=== PATIENT | female | born 1955 | race Caucasian/White ===

== ENCOUNTER → 2019-07-09 13:17 | Outpatient (CLI) | payer MEDICARE, OTHER, SELFPAY ==
--- NOTE | ~2019-07-09 | MM_ITS ---
EXAMINATION: MM screening walker BI w melina HISTORY: Screening mammogram, family history of breast cancer in her mother. TECHNIQUE: Craniocaudal and mediolateral oblique 3-D tomosynthesis images were obtained and synthetic 2-D images were generated. CAD analysis was submitted and interpreted. COMPARISON: 04/25/2018, 03/30/2017, 02/09/2016 BREAST PARENCHYMAL COMPOSITION: There are scattered areas of fibroglandular density. FINDINGS: There is stable architectural distortion in the left breast at the site of prior excisional biopsy. There is no evidence of suspicious mass, calcification, or architectural distortion to sugge st malignancy in either breast. There has been no suspicious interval change. IMPRESSION: 1. No mammographic evidence of malignancy. 2. Recommend routine screening mammography in one year. BI-RADS Category 2: Benign finding(s). Reviewed, dictated and finalized at location A. 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
== END ==
PROVIDERS: PCP Internal Medicine; Visit Provider Internal Medicine
DX: Z12.31 Encounter for screening mammogram for malignant neoplasm of breast (principal)
CPT/HCPCS: 77063; 77067

== ENCOUNTER 2019-12-02 01:02 | Outpatient (CLI) | payer MEDICARE, OTHER, SELFPAY ==
[2019-12-02 18:41] LABS: SARS-CoV-2 RNA PCR Negative
== END 2019-12-02 01:03 | disposition home or self-care (01) ==
LOC: ANHCOVIDDT 01:03
PROVIDERS: PCP Internal Medicine; Visit Provider Internal Medicine Gastroenterology
DX: Z01.812 Encounter for preprocedural laboratory examination (principal); Z11.59 Encounter for screening for other viral diseases
CPT/HCPCS: 87635; C9803; U0003

== ENCOUNTER 2019-12-04 01:51 | Day surgery (SDC) | payer MEDICARE, OTHER, SELFPAY ==
[2019-11-28 10:16] VITALS: BMI 22.4
[2019-12-04 08:46] VITALS: BP 128/70; PULSE 90; RESP 16; TEMP 36.8; O2SAT 100; BMI 21.2
--- NOTE | 2019-12-04 08:52 | P.CONGI_ITS ---
Assessment and Plan Assessment and plan (1) History of colon polyps: Code(s): Z86.010 - Personal history of colonic polyps Status: Acute Assessment and Plan: Patient has had colon polyps identified in the past. She presents today for surveillance colonoscopy. It is advised that she have colonoscopy at least every 5 years in the future. (2) Family history of colonic polyps: Code(s): Z83.71 - Family history of colonic polyps Status: Acute GI Consult Note Consult date/time: 12/04/19 08:52 HPI: Michaela Celestin is a 64 year old female seen in evaluation at the request of Dr Bubba De La Rosa. Patient presents for screening colonoscopy. She states that she has previously had colon polyps on previous examinations. Most recent exam was in 2014. She has had 3 prior colonoscopies with colon polyps identified at each of those visits. Most recent exam was in [facility]. Patient's family history is significant that mother and brother both have also had colon polyps. Patient currently denies any abdominal complaints. She denies abdominal pain. She has no blood in her stools. Past medical history is significant for hypothyroidism for which she is on thyroid replacement. Review of Systems Review of Systems: All systems reviewed & are unremarkable except as noted in HPI and below Meds Home Medications and Allergies Home Medications Medication Instructions Recorded Confirmed Type levothyroxine 50 mcg PO DAILY 11/28/19 12/04/19 History Allergies Allergy/AdvReac Type Severity Reaction Status Date / Time cephalexin [From Keflex] Allergy Rash Verified 12/04/19 08:45 Vital Signs Vital Signs - 24 hr 12/04/19 08:46 Temperature 98.2 F Pulse Rate 90 Respiratory Rate 16 Blood Pressure 128/70 Pulse Oximetry 100 Exam Narrative: Exam Narrative: Physical exam reveals patient to be alert. Vital signs stable. HEENT exam unremarkable. Lungs are clear to auscultation and percussion. Heart is without murmur or extra sounds. Abdominal exam bowel sounds are present soft nontender with no hepatosplenomegaly. Digital external rectal exam is normal.
[2019-12-04] MEDS: LACTATED RINGERS 1,000 ML 150 ML IV CONT (08:58)
--- NOTE | 2019-12-04 09:15 | WPDANESEPPF ---
Anes - Initial Pre Proc Eval Procedure: Operation Date: 12/04/19 09:30 Proposed Procedures p Screening Colonoscopy - Bay Grimes MD Date/Time: 12/04/19 09:15 Surgeon: Bay Grimes MD Pre Op Diagnosis: History of Colon Polyps Patient Data Age: 64 Gender: F Height: 5 ft 6 in Weight: 59.8 kg Last Vital Signs Temp 98.2 F 12/04/19 08:46 Pulse 90 12/04/19 08:46 Resp 16 12/04/19 08:46 BP 128/70 12/04/19 08:46 Pulse Ox 100 12/04/19 08:46 Allergies Allergy/AdvReac Type Severity Reaction Status Date / Time cephalexin [From Keflex] Allergy Rash Verified 12/04/19 08:45 Home Medications Medication Instructions Recorded Confirmed Type levothyroxine 50 mcg PO DAILY 11/28/19 12/04/19 History Patient hx anesthesia problems: none Family hx anesthesia problems: none [facility], [facility] Past Medical History Medical History (Updated 12/04/19 @ 09:12 by Robert Flores MD) Hypothyroid Anes - Eval Final PreProcedure Day of Procedure 12/04/19 09:15 Patient weight: normal Heart: regular rate and rhythm Lungs: clear to auscultation Airway: Mallampati scale class II Neurological: alert and oriented Last oral intake: >/= 8 hours ASA classification: II Emergent: no Anesthetic plan: proceed Anesthesia type and monitoring: general GIVS and standard monitoring Informed Consent: The patient's anesthetic plan and its attendant risks and benefits were discussed with the patient/family/POA. Questions were solicited and answers provided to the satisfaction of the patient/family/POA.
[2019-12-04 09:50] VITALS: BP 132/78; PULSE 93; RESP 16; O2SAT 100
[2019-12-04 10:00] VITALS: BP 139/92; PULSE 85; RESP 16; O2SAT 100
[2019-12-04 10:10] VITALS: BP 142/89; PULSE 83; RESP 14; O2SAT 100
== END 2019-12-04 10:30 | disposition home or self-care (01) ==
PROVIDERS: PCP Internal Medicine; Visit Provider Internal Medicine Gastroenterology
PROC: 0DJD8ZZ Inspection of Lower Intestinal Tract, Via Natural or Artificial Opening Endoscopic (ICD-10-PCS; CPT 45378; principal; 2019-12-04 09:30)
DX: Z12.11 Encounter for screening for malignant neoplasm of colon (principal); K64.8 Other hemorrhoids; Z86.010 Personal history of colon polyps; Z83.71 Family history of colonic polyps; E03.9 Hypothyroidism, unspecified
CPT/HCPCS: G0105; J2704; J7120

== ENCOUNTER → 2020-07-13 10:59 | Outpatient (CLI) | payer MEDICARE, SELFPAY ==
--- NOTE | ~2020-07-13 | MM_ITS ---
EXAMINATION: MM screening walker BI w melina HISTORY: Screening mammogram, family history of breast cancer in her mother. TECHNIQUE: Craniocaudal and mediolateral oblique 3-D tomosynthesis images were obtained and synthetic 2-D images were generated. CAD analysis was submitted and interpreted. COMPARISON: 05/08/2020, 04/25/2018, 03/30/2017 BREAST PARENCHYMAL COMPOSITION: There are scattered areas of fibroglandular density. FINDINGS: There is no evidence of suspicious mass, calcification, or architectural distortion to sugg est malignancy in either breast. There has been no suspicious interval change. IMPRESSION: 1. No mammographic evidence of malignancy. 2. Recommend routine screening mammography in one year. BI-RADS Category 1: Negative Reviewed, dictated and finalized at location A. 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
== END ==
PROVIDERS: PCP Internal Medicine; Visit Provider Internal Medicine
DX: Z12.31 Encounter for screening mammogram for malignant neoplasm of breast (principal)
CPT/HCPCS: 77063; 77067

== ENCOUNTER → 2020-07-13 11:02 | Outpatient (CLI) | payer MEDICARE, SELFPAY ==
--- NOTE | ~2020-07-13 | DEXA_ITS ---
Bone Density Report Name: Michaela Celestin Age: 65 Sex: Female Ethnicity: White Date of : 1955 Indication: osteopenia; postmenopausal Referring Provider: Ralf, Vernell Baxter Study: Bone densitometry was performed. Exam Date: July 13, 2020 Accession number: [id number] Bone Density: Region BMD T-score Z-score Classification AP Spine (L1-L4) 0.815 -2.1 -0.3 Osteopenia Femoral Neck (Left) 0.648 -1.8 -0.2 Osteopenia Total Hip (Left) 0.780 -1.3 0.0 Osteopenia Femoral Neck (Right) 0.683 -1.5 0.1 Osteopenia Total Hip (Right) 0.861 -0.7 0.6 Normal Total Hip Mean 0.821 -1.0 0.3 Normal World Health Organization criteria for BMD impression classify patients as: Normal (T-score at or above -1.0), Osteopenia (T-score between -1.0 and -2.5), or Osteoporosis (T-score at or below -2.5). 10-year Fracture Risk(1): Major Osteoporotic Fracture 9.7% Hip Fracture 1.4% Reported Risk Factors: [place] (), Neck BMD=0.648, BMI=22.9 (1) FRAX(R) Version 3.08. Fracture probability calculated for an untreated patient. Fracture probability may be lower if the patient has received treatment. Previous Exams: Region Exam Age BMD T-score BMD Change BMD Change Date g/cm2 vs Baseline vs Previous AP Spine(L1-L4) 07/13/2020 65 0.815 -2.1 -0.029* -0.029* 04/25/2018 62 0.843 -1.9 Total Hip(Left) 07/13/2020 65 0.780 -1.3 -0.012 -0.012 04/25/2018 62 0.793 -1.2 Total Hip(Right) 07/13/2020 65 0.861 -0.7 0.008 0.008 04/25/2018 62 0.852 -0.7 *Denotes significance at 95% confidence level, LSC for AP Spine = 0.022 g/cm2, LSC for Total Hip = 0.027 g/cm2 Clinical Information Provided by Patient: Has used the following medications: Vitamin D Patient maximum height was 66 Menopause Age: 53 No regular weight bearing exercise Drinks caffeinated beverages Onset of menses at age 11 Number of children 2 Impression: The patient has low bone mass, based on the Total Spine T-score. The patient has an estimated ten-year risk of hip fracture of 1.4% and an estimated ten-year risk of major fracture of 9.7%, based on the WHO FRAX algorithm. The BMD for the AP Spine(L1-L4) decreased, changing by -0.029 since the last DXA exam. Discussion: BONE DENSITY IS LOW AT ONE OR MORE SKELETAL SITES. This patient's lowest T-score is low at one or more skeletal sites. It meets the World Health Organization's (
== END ==
PROVIDERS: PCP Internal Medicine; Visit Provider Nurse Practitioner Obstetrics & Gynecology
DX: Z78.0 Asymptomatic menopausal state (principal); M85.88 Other specified disorders of bone density and structure, other site; M85.852 Other specified disorders of bone density and structure, left thigh; M85.851 Other specified disorders of bone density and structure, right thigh
CPT/HCPCS: 77080

== ENCOUNTER → 2021-09-06 12:33 | Outpatient (CLI) | payer MEDICARE, SELFPAY ==
--- NOTE | ~2021-09-06 | MM_ITS ---
EXAMINATION: MM screening walker BI w melina HISTORY: Screening mammogram TECHNIQUE: Craniocaudal and mediolateral oblique 3-D tomosynthesis images were obtained and synthetic 2-D images were generated. CAD analysis was submitted and interpreted. COMPARISON: July 13, 2020, July 09, 2019, April 25, 2018 bilateral screening mammogram exam inations BREAST PARENCHYMAL COMPOSITION: There are scattered areas of fibroglandular density. FINDINGS: There is no evidence of suspicious mass, calcification, or architectural distortion to sugg est malignancy in either breast. There has been no suspicious interval change. IMPRESSION: 1. No mammographic evidence of malignancy. 2. Recommend routine screening mammography in one year. BI-RADS Category 1: Negative Reviewed, dictated and finalized at location A.
== END ==
PROVIDERS: PCP Internal Medicine; Visit Provider Internal Medicine
DX: Z12.31 Encounter for screening mammogram for malignant neoplasm of breast (principal)
CPT/HCPCS: 77063; 77067

== ENCOUNTER → 2022-03-16 08:43 | Outpatient (CLI) | payer MEDICARE, SELFPAY ==
--- NOTE | ~2022-03-16 | MMUS_ITS ---
EXAMINATION: MM diagnostic walker LT w melina, US breast LT complete HISTORY: Diffuse left breast pain TECHNIQUE: Craniocaudal, mediolateral, and mediolateral oblique 3-D tomosynthesis images of the left breast were performed and synthetic 2-D images were generated. CAD analysis was submitted and interpr eted. High resolution limited left breast ultrasound was performed. COMPARISON: 09/06/2021, 07/13/2020, 07/09/2019 BREAST PARENCHYMAL COMPOSITION: There are scattered areas of fibroglandular density. FINDINGS: MAMMOGRAPHIC FINDINGS: No suspicious mass, calcification, or architectural distortion are identified to suggest malignancy. There has been no suspicious interval change. No mammographic correlate is identified for the patient 's reported left breast pain. ULTRASOUND: There is no evidence of focal abnormal solid or cystic mass in the vicinity of the patient's left gabi ast pain. IMPRESSION: 1. No specific mammographic or sonographic correlate is identified for the patient's left breast pain Further evaluation at this time should be based on clinical assessment. Continued follow-up physical examination is recommended. 2. Routine screening mammography is recommended. BI-RADS Category 1: Negative Reviewed, dictated and finalized at location A. IMPRESSION: 1. No specific mammographic or sonographic correlate is identified for the rosalia ent's left breast pain Further evaluation at this time should be based on clini carmella assessment. Continued follow-up physical examination is recommended. 2. Routine screening mammography is recommended. BI-RADS Category 1: Negative
== END ==
PROVIDERS: PCP Internal Medicine; Visit Provider Nurse Practitioner Obstetrics & Gynecology
DX: N64.4 Mastodynia (principal)
CPT/HCPCS: 76641; 77061; 77065; G0279

== ENCOUNTER → 2022-09-22 12:14 | Outpatient (CLI) | payer MEDICARE, SELFPAY ==
--- NOTE | ~2022-09-22 | MM_ITS ---
EXAMINATION: MM screening walker BI w melina HISTORY: Screening mammogram, family history of breast cancer in her mother. TECHNIQUE: Craniocaudal and mediolateral oblique 3-D tomosynthesis images were obtained and synthetic 2-D images were generated. CAD analysis was submitted and interpreted. COMPARISON: 03/16/2022, 09/06/2021, 07/13/2020, 07/09/2019 BREAST PARENCHYMAL COMPOSITION: There are scattered areas of fibroglandular density. FINDINGS: RIGHT BREAST: An asymmetry is present in the middle third of the central breast in line with the nipp le axis on the craniocaudal view. LEFT BREAST: No suspicious mass, calcification, or architectural distortion are identified to suggest malignancy. There has been no suspicious interval change. IMPRESSION: 1. Right breast asymmetry. 2. Additional mammographic views and possible breast ultrasound are recommended. BI-RADS Category 0: Incomplete: Needs additional imaging evaluation. Reviewed, dictated and finalized at location A. IMPRESSION: 1. Right breast asymmetry. 2. Additional mammographic views and possible breast ultrasound are recommended . BI-RADS Category 0: Incomplete: Needs additional imaging evaluation.
== END ==
PROVIDERS: PCP Internal Medicine; Visit Provider Nurse Practitioner Obstetrics & Gynecology
DX: Z12.31 Encounter for screening mammogram for malignant neoplasm of breast (principal); R92.8 Other abnormal and inconclusive findings on diagnostic imaging of breast
CPT/HCPCS: 77063; 77067

== ENCOUNTER → 2022-10-21 08:42 | Outpatient (CLI) | payer MEDICARE, SELFPAY ==
--- NOTE | ~2022-10-21 | MM_ITS ---
EXAMINATION: MM diagnostic walker RT w melina HISTORY: Right mammographic asymmetry on 09/2022 screening mammogram TECHNIQUE: Additional 3-D tomosynthesis images of the right breast were performed and synthetic 2-D i mages were generated. Rolled medial and lateral craniocaudal views. CAD analysis was submitted and in terpreted. COMPARISON: 09/22/2022, 09/06/2021, 07/13/2020 bilateral screening mammogram examinations FINDINGS: No suspicious mass or architectural distortion, malignant calcification, skin thickening or retraction is evident. The asymmetry reported on 09/22/2022 is not confirmed on coned compression CC T omosynthesis images or the rolled medial and rolled lateral craniocaudal views, consistent with compo site shadowing of overlapping fibroglandular stroma. IMPRESSION: 1. No mammographic evidence of malignancy 2. Routine annual mammographic screening is recommended BI-RADS Category 1: Negative Reviewed, dictated and finalized at location A.
== END ==
PROVIDERS: PCP Internal Medicine; Visit Provider Nurse Practitioner Obstetrics & Gynecology
DX: R92.8 Other abnormal and inconclusive findings on diagnostic imaging of breast (principal)
CPT/HCPCS: 77061; 77065; G0279

== ENCOUNTER 2023-12-07 10:13 | Outpatient (CLI) | payer MEDICARE, SELFPAY ==
--- NOTE | ~2023-12-07 | MM_ITS ---
EXAMINATION: MM screening walker BI w melina HISTORY: Screening TECHNIQUE: Craniocaudal and mediolateral oblique 3-D tomosynthesis images were obtained and synthetic 2-D images were generated. CAD analysis was submitted and interpreted. COMPARISON: Comparison to multiple prior studies sequentially, with oldest reviewed study dated 07/09. BREAST PARENCHYMAL COMPOSITION: Not dense: There are scattered areas of fibroglandular density. FINDINGS: There is no evidence of suspicious mass, calcification, or architectural distortion to sugg est malignancy in either breast. There has been no suspicious interval change. IMPRESSION: 1. No mammographic evidence of malignancy. 2. Recommend routine screening mammography in one year. BI-RADS Category 1: Negative Reviewed, dictated and finalized at location B.
== END 2023-12-07 10:14 ==
PROVIDERS: PCP Internal Medicine; Visit Provider Obstetrics & Gynecology
DX: Z12.31 Encounter for screening mammogram for malignant neoplasm of breast (principal)
CPT/HCPCS: 77063; 77067

== ENCOUNTER 2023-12-19 07:26 | Outpatient (CLI) | payer MEDICARE, SELFPAY ==
[2023-12-19 07:57] LABS: Basophils Percent Auto 1.1 % (0.2-1.2); Eosinophils Absolute Auto 0.1 K/mm3 (0-0.3); Eosinophils Percent Auto 2.3 % (0-4.4); Hematocrit 47.6 % (37.0-47.0); Hemoglobin 15.4 g/dL (12.0-15.0); Immature Granulocyte Absolute 0.01 K/mm3 (0.00-0.031); Immature Granulocyte Percent A 0.3 % (0-0.5); Lymphocytes Absolute Auto 1.11 K/mm3 (0.9-3.2); Lymphocytes Percent Auto 31.7 % (18.3-44.2); Mean Corpuscular HGB Conc 32.4 g/dl (32-36); Mean Corpuscular Hemoglobin 29.8 pg (26-34); Mean Corpuscular Volume 92.1 fl (80-100); Mean Platelet Volume 10.4 fl (7.4-10.4); Monocytes Absolute Auto 0.5 K/mm3 (0.1-0.6); Monocytes Percent Auto 14.6 % (2.6-8.5); Neutrophils Absolute Auto 1.8 K/mm3 (1.3-6.7); Platelet Count Result 187 k/mm3 (150-375); Red Blood Count 5.17 M/mm3 (4.2-5.4); White Blood Count 3.5 K/mm3 (4.5-10.0)
[2023-12-19 08:12] LABS: Alanine Aminotransferase 28 U/L (6-35); Albumin Level 4.4 g/dL (3.5-5.1); Alkaline Phosphatase 100 U/L (38-126); Anion Gap 8 mmol/L (4-12); Aspartate Amino Transferase 36 U/L (14-36); Bilirubin,Total 0.5 mg/dL (0.2-1.3); Blood Urea Nitrogen 22 mg/dL (7-17); Calcium 8.9 mg/dL (8.4-10.2); Carbon Dioxide 31 mmol/L (22-30); Chloride 101 mmol/L (98-107); Cholesterol 174 mg/dL (0-200); Estimated Glomerular Filt Rate > 60; Glucose 91 mg/dL (65-110); HDL Direct 72 mg/dL; Potassium 4.6 mmol/L (3.4-5.0); Sodium 140 mmol/L (137-145); Triglycerides 73 mg/dL (<150)
[2023-12-19 08:23] LABS: LDL Cholesterol Direct 77 mg/dL
[2023-12-19 08:41] LABS: Free T4 Free Thyroxine 0.73 ng/mL (0.78-2.19)
[2023-12-20 12:07] LABS: Triiodothyronine T3 Free 3.2 pg/mL (2.3-4.2)
== END 2023-12-19 07:27 | disposition home or self-care (01) ==
LOC: ANHLAB 07:29
PROVIDERS: PCP Internal Medicine; Visit Provider Internal Medicine
DX: E78.5 Hyperlipidemia, unspecified (principal); E03.9 Hypothyroidism, unspecified; Z79.899 Other long term (current) drug therapy
CPT/HCPCS: 36415; 80053; 80061; 84439; 84443; 84481; 85025

== ENCOUNTER 2024-02-02 13:15 | Outpatient (RCR) | payer MEDICARE, SELFPAY ==
--- NOTE | 2024-01-12 16:33 | OPREHPOC ---
Outpatient Therapy Plan of Care This is a Multidisciplinary Plan of Care that may contain components documented by all disciplines (PT, OT, and ST.) PT Problem 1 PT Problem #1 Knowledge Deficit PT Goal 1 Goal / Goal Update [place] with HEP Target Visit 4 PT Problem 2 PT Problem #2 Impaired Range of Motion PT Goal 1 Goal / Goal Update Demonstrate 45 degrees pradeep hip abduction to reduce hip limitation motion Target Visit 6 PT Goal 2 Goal / Goal Update Improve pradeep hip abduction strength to 4+/5 to improve lateral stability with gait and ADLs Target Visit 6 PT Problem 3 PT Problem #3 Pain PT Goal 1 Goal / Goal Update Patient will demonstrate no palpable tenderness to R patellar bursa Target Visit 6
--- NOTE | 2024-01-12 16:34 | PTOPEVAL1 ---
Assessment and note entered by Dwayne Roberts, PT Evaluation Information Assessment Status Evaluation Diagnosis Right Trochanteric bursitis ICD-10 Condition Codes (PT) M25.561 Onset November 2023 Subjective Information Reports that she has had a long history of trochanteric bursitis for years., her knee has been bothering her for a little over a month. No known injury. Denies radiating pain or back pain at this time. Denies falls. She does silver sneakers with dance and really wants to get back to that. For exercise she is mostly just walking at this time. Ice seems to help with pain. Reported Pain Level Pain Score 1: Self Report Assessment PT Clinical Summary Patient presents with signs and symptom consistent with R patellar and R trochanteric bursitis. She is showing some hip mobility on adduction issues and weal lateral stabilizers. Will benefit from skilled therapy to address hip weakness and hip disassociation for correction strengthening. Plan of Care Interventions Electrical Stimulation,Gait Training,Manual Therapy,Neuro Re-education,Therapeutic Activities, Therapeutic Exercise PT Services Indicated Yes Treatment Frequency and 1-2x/week for 6 visits Duration These treatments will address the objective and functional deficits as defined above. The patient will be advanced safely and appropriately in order for the patient to progress towards his/her prior level of function. Additional exercises will be introduced and as well as a comprehensive home exercise program upon discharge, if needed, ?to ensure carryover of functional gains achieved in the clinic. This treatment plan has been reviewed and agreement upon by the patient.
--- NOTE | 2024-02-02 13:59 | OPREHPOC ---
Outpatient Therapy Plan of Care This is a Multidisciplinary Plan of Care that may contain components documented by all disciplines (PT, OT, and ST.) PT Problem 1 PT Problem #1 Knowledge Deficit PT Goal 1 Goal / Goal Update [place] with HEP Target Visit 4 Progress Met PT Problem 2 PT Problem #2 Impaired Range of Motion PT Goal 1 Goal / Goal Update Demonstrate 45 degrees pradeep hip abduction to reduce hip limitation motion Target Visit 6 Progress Met PT Goal 2 Goal / Goal Update Improve pradeep hip abduction strength to 4+/5 to improve lateral stability with gait and ADLs Target Visit 6 PT Problem 3 PT Problem #3 Pain PT Goal 1 Goal / Goal Update Patient will demonstrate no palpable tenderness to R patellar bursa Target Visit 6 Progress Met
--- NOTE | 2024-02-02 13:59 | PTOPDC ---
Assessment and note entered by Dwayne Roberts, PT Evaluation Information Assessment Status Discharge Diagnosis Right Trochanteric bursitis ICD-10 Condition Codes (PT) M25.561 Onset November 2023 Subjective Information Reports that she feels like she has made great progress. 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 Reported Pain Level Pain Score 0,0: Self Report Assessment PT Clinical Summary Patient met all goals for therapy at this time and is suitable for discharge. Reviewed HEPO and objective deficits and patient has no concerns for discharge at this time. Plan of Care PT Services Indicated D/C to HEP
== END 2024-02-02 14:42 | disposition home or self-care (01) ==
LOC: ANHGOSHPT 13:15
PROVIDERS: PCP Internal Medicine; Visit Provider Orthopaedic Surgery
DX: M70.61 Trochanteric bursitis, right hip (principal); M25.561 Pain in right knee
CPT/HCPCS: 97110; 97140; 97161; 97530

== ENCOUNTER 2024-06-07 08:28 | Outpatient (CLI) | payer MEDICARE, SELFPAY ==
[2024-06-07 09:39] LABS: Alanine Aminotransferase 38 U/L (6-35); Albumin Level 4.2 g/dL (3.5-5.1); Alkaline Phosphatase 89 U/L (38-126); Anion Gap 5 mmol/L (4-12); Aspartate Amino Transferase 40 U/L (14-36); Bilirubin,Total 0.7 mg/dL (0.2-1.3); Blood Urea Nitrogen 19 mg/dL (7-17); Calcium 8.6 mg/dL (8.4-10.2); Carbon Dioxide 30 mmol/L (22-30); Chloride 104 mmol/L (98-107); Cholesterol 182 mg/dL (0-200); Estimated Glomerular Filt Rate > 60; Glucose 87 mg/dL (65-110); HDL Direct 70 mg/dL; Potassium 4.2 mmol/L (3.4-5.0); Sodium 139 mmol/L (137-145); Triglycerides 87 mg/dL (<150)
[2024-06-07 09:50] LABS: LDL Cholesterol Direct 78 mg/dL
[2024-06-07 10:06] LABS: Free T4 Free Thyroxine 1.09 ng/dL (0.78-2.19)
[2024-06-08 10:09] LABS: Triiodothyronine T3 Free 2.2 pg/mL (2.3-4.2)
--- OUTSIDE RECORDS SUMMARY | 2024-06-13 05:29 | XMS_ITS | Data Portability ---
[facility] Address [address] [place] [address] Care Team Providers Care Clerical Order Filler Name Role Phone BRANDO DE LA ROSA Primary Care Provider Assessment Encounter Date Assessment Date Assessment LastModified by Organization Details LastModified Time 12/14/2023 12/14/2023 obtain old records recheck blood work get a bone density she thinks he is up-to-date on screenings and immunizations she will follow up in 6 months. [email or web address] Not available 12/24/2023 19:21:35 Plan of Treatment Reminders Order Date Submit Date Provider Last Modified By Organization Details Last Modified Time Details Appointments ANY 15 2024 09:00A Dami De La Rosa MD Not available Not available Not available Lab CBC w/ auto diff [facility] [address], [place], [address], 12/22/2023 09:46:11 lipid panel, serum 2023 024 [facility] [address], [place], [address], 12/19/2023 12:15:27 CMP, serum or plasma 2023 024 [facility] [address], [place], [address], 12/19/2023 09:44:09 T4, free, serum 2023 024 [facility] [place] [place] [facility] [address], [place], [address], 12/22/2023 09:44:49 T3, free, serum or plasma [address], [place], [address], 12/22/2023 09:45:30 TSH, ultra-se nsitive, serum [address], [place], [address], 01/02/2024 15:11:07 Referral None recorded . Procedures None recorded . Surgeries None recorded . Imaging bone density 2023 [facility], [address], [place], [address], 01/02/2024 15:10:34 Medication Orders None recorded . Patient TargetsNo targets recorded. Patient InstructionsNo instructions recorded. Reason for Referral None Reported. Results Created Date Observation Date Name Description Value Unit Range Abnormal Flag Note LastModifiedBy Organization Detail LastModifiedTime 12/07/19 24 12/07/2023 MAMMO , scree nighat, digit al, bilat eral No observ ation record ed. [facility] [address], [place], [address], 12/08/2023 16:29:12 Result Notes None recorded. Problems Name Problem SNOMED Code Status Onset Date Resolution Date Notes Provider Name and Address Organization Details Recorded Time Hyperlipidemia 96728002 Active 2023 KALLI Bill[place] [facility] 10:29:45 Hypothyroidism 39572204 Active 2023 KALLI Billings, [facility] 10:29:46 Problem Notes None recorded. Procedures Surgical History Date Name Laterality Status Provider Name and Address Organization Details Recorded Time 05/22/19 24 Eye Surgery completed Oksana Arroyo [place] [facility] 12/14/2023 10:05:28 05/22/19 22 Eye Surgery completed Oksana Arroyo MA [facility] 12/14/2023 10:05:37 12/04/19 20 screening colonoscopy completed Stefania Hearn [facility] 06/12/2024 11:31:49 05/22/19 14 Eye Surgery completed Oksana Arroyo MA [facility] 12/14/2023 10:05:34 05/22/19 10 Arthroscopic Surgery completed Oksana Arroyo MA [facility] 12/14/2023 10:04:35 05/22/18 90 biopsy of breast completed Oksana Arroyo MA [facility] 12/14/2023 10:06:01 excision of pelvic endometriosis completed Oksana Arroyo MA [facility] 12/14/2023 10:07:49 Imaging Results Imaging Date Name Status LastModified by Organiz ation Details LastModified Time 12/07/2023 MAMMO, screening, digital, bilateral completed [facility] [address], [place], [address], 12/08/2023 16:29:12 Procedure Notes None recorded. Medical Equipment None Reported. Allergies Allergen ID Allergen Name Allergen Category Reaction Reaction Severity Criticality Documentation Date Start Date Code Code System Note Provider Name and Address Organization Details Recorded Time [id number] Keflex medicatio n Not available Not available unabletoasse ss 10/09/202362702 7 RxNorm Not Available Not Available Not Available Medications Name Sig Start Date Stop Date Status Note LastModified by Organization Details LastModified Time prednisone 10 mg tablet TAKE 1 TABLET BY MOUTH TWICE DAILY 12/13 completed Not Available Not Available Not Available azithromyci n 250 mg tablet TAKE 2 TABLETS BY MOUTH FOR 1 DAY THEN TAKE 1 TABLET BY MOUTH DAILY FOR 4 DAYS active Not Available Not Available No t Available clobetasol 0.05 % topical cream APPLY TOPICALLY TO THE AFFECTED AREA DAILY active Not Available Not Available No t Available levothyroxi ne 25 mcg tablet TAKE 1 TABLET BY MOUTH EVERY DAY active Not Available Not Available No t Available prednisolon e acetate 1 % eye drops,suspe nsion 12/13 completed Not Available Not Available Not Available ciprofloxac in 0.3 % eye drops 12/13 completed Not Available Not Available Not Available levothyroxi ne 50 mcg tablet TAKE 1 TABLET BY MOUTH EVERY DAY 12/21 completed see pt case Not Available Not Available Not Available diclofenac 0.1 % eye drops 12/13 completed Not Available Not Available Not Available tacrolimus 0.03 % topical ointment APPLY THIN LAYER TOPICALLY TO THE AFFECTED AREA 1 TO 3 TIMES EVERY WEEK 12/13 completed Not Available Not Available Not Available diclofenac sodium 75 mg tablet,jen yed release TAKE 1 TABLET BY MOUTH TWICE DAILY active Not Available Not Available No t Available clobetasol 0.05 % topical ointment APPLY A THIN LAYER EXTERNALL Y TO THE AFFECTED AREA 1 TO 2 TIMES PER DAY NEEDED FOR FLARE UPS 12/13 completed Not Available Not Available Not Available methylpredn isolone 4 mg tablets in a dose pack FOLLOW PACKAGE DIRECTION S 12/13 completed Not Available Not Available Not Available ezetimibe 10 mg tablet TAKE 1 TABLET BY MOUTH DAILY active Not Available Not Available No t Available loteprednol etabonate 0.5 % eye gel drops INSTILL 1 DROP INTO EACH EYE FOUR TIMES DAILY. TAPER BY 1 DROP EVERY WEEK FOR 4 WEEKS 12/13 completed Not Available Not Available Not Available Vitals Date Recorded Body weight Provider Name an d Address Organization Details Last Updated DateTime 12/14/2023 92042.75 g Oksana Arroyo MA [facility] 12/14/2023 09:56:31 Date Recorded Body mass index (BMI) Body height Provider Name and Address Organization Details Last Updated DateTime 12/14/2023 22.6 kg/m2 166.37 cm KALLI Galeano [facility] 12/14/2023 09:56:36 Date Recorded Heart rate Provider Name an d Address Organization Details Last Updated DateTime 12/14/2023 85 /min Oksana Arroyo [place] [facility] 11/20 10:12:51 Date Recorded Oxygen saturation Oxygen saturation in Arterial blood by Pulse oximetry Provider Name and Address Organization Details Last Updated DateTime 12/14/2023 98 % 98 % Oksana Arroyo [place] [facility] 12/14/2023 10:13:09 Date Recorded Systolic blood pressure Diastolic blood pressure Provider Name and Address Organization Details Last Updated DateTime 12/14/2023 126 mm[Hg] 82 mm[Hg] Oksana Arroyo MA [facility] 12/14/2023 10:12:38 Social History Question Answer Notes LastModified by Organizat ion Details LastModified Time Tobacco Smoking Status Never Smoker Oksana Arroyo [place] null, [facility] 12/14/2023 10:03:04 Do You Have An Advance Directive? Yes Information not available 12/14/2023 What Is Your Level Of Alcohol Consumption? None Former Information not available 12/14/2023 Are You Blind Or Do You Have Difficulty Seeing? No Information not available 12/14/2023 What Is Your Level Of Caffeine Consumption? Occasional 1-2 Cups Of Tea Information not available 12/14/2023 Are You Currently Employed? No Retired Information not available 12/14/2023 Are You Deaf Or Do You Have Serious Difficulty Hearing? No Information not available 12/14/2023 What Type Of Diet Are You Following? REGULAR Information not available 12/14/2023 What Was The Date Of Your Most Recent Tobacco Screening? 12/14/2023 Information not available 12/14/2023 What Is Your Relationship Status? Information not available 12/14/2023 Do You Use Your Seat Belt Or Car Seat Routinely? Yes Information not available 12/14/2023 Do You Have Smoke And Carbon Monoxide Detectors In Your Home? Yes Information not available 12/14/2023 Do You Feel Stressed (tense, Restless, Nervous, Or Anxious, Or Unable To Sleep At Night)? [id number] Information not available 12/14/2023 Do You Use Any Illicit Or Recreational Drugs? No Information not available 12/14/2023 Has Tobacco Cessation Counseling Been Provided? No Information not available 12/14/2023 Do You Or Have You Ever Used Any Other Forms Of Tobacco Or Nicotine? No Information not available 12/14/2023 Sex: Female Functional Status Question Answer Note LastModified by Organization D etails LastModified Time Are you able to care for yourself? Yes Information not available 12/14/2023 What is your exercise level? Moderate Information not available 12/14/2023 Mental Status None recorded. Family History Relationship Description Onset Age of this Age Resolved Age Notes LastModified by Organization Details LastModified Time Mother Family history of breast cancer bandersonma Not available 11/20 10:01:55 Mother Hypertensive disorder bandersonma Not available 11/20 10:02:08 Mother Hypercholest erolemia bandersonma Not available 11/20 10:02:18 Brother Hypertensive disorder bandersonma Not available 11/20 10:02:08 Brother Hypercholest erolemia bandersonma Not available 11/20 10:02:18 Medical History Condition Response Coronary Artery Disease N Other N High Blood Pressure N Atrial Fibrillation N Kidney or Bladder Problems N Thyroid Problems Y GI Problems N Depression N COPD N Blood Clots N Have you had a mammogram in the last yea r? Y Skin Problems N Anemia N Heart Attack ([place]) N Anxiety Disorder N Diabetes N Muscle, Joint, or Bone Problems N Seizures/Epilepsy N Have you had a colonoscopy in the last 1 0 years? Y Acid Reflux (GERD) N Cancer N Stroke N Asthma N Allergies N Have you had a PSA blood test in the las t year? N High Cholesterol Y Hepatitis N Liver Disease N Headaches N Heart Failure N Osteoporosis N Gynecological HistoryNo gynecological history recorded. Obstetrics History GPAL:G 0 P 0 0 0 0 Immunizations Vaccine Type Date Status Note Provider Nam e and Address Organization Details Recorded Time Influenza, split virus, quadrivalent, preservative 9 completed K[place]I [place] [facility] 12/14/2023 09:47:55 Influenza, MDCK, quadrivalent, PF 9 completed [place] [facility] 12/14/2023 09:47:55 zoster recombinant 2 completed Oksana Arroyo [place] [facility] 12/14/2023 09:47:55 zoster recombinant 2 completed Oksana Arroyo [place] [facility] 12/14/2023 09:47:55 Influenza, high-dose, quadrivalent, PF 1 completed Oksana Arroy[place] [facility] 12/14/2023 09:47:55 Influenza, high-dose, quadrivalent, PF 3 completed [place] [facility] 12/14/2023 09:47:55 Influenza, high-dose, quadrivalent, PF 1 completed Oksana Arroy[place] [facility] 12/14/2023 09:47:55 Influenza, adjuvanted, quadrivalent, PF 2 completed Oksana Arroy[place] [facility] 12/14/2023 09:47:55 COVID-19, mRNA, LNP-S, PF, 100 mcg/0.5mL dose or 50 mcg/0.25mL dose 1 completed Oksana Arroyo [place] [facility] 12/14/2023 09:47:55 COVID-19, mRNA, LNP-S, PF, 100 mcg/0.5mL dose or 50 mcg/0.25mL dose 1 completed Oksana Arroyo [place] [facility] 12/14/2023 09:47:55 COVID-19, mRNA, LNP-S, PF, 100 mcg/0.5mL dose or 50 mcg/0.25mL dose 2 completed [place] [facility] 12/14/2023 09:47:55 COVID-19, mRNA, LNP-S, PF, 100 mcg/0.5mL dose or 50 mcg/0.25mL dose 1 [place] [facility] 12/14/2023 09:47:55 COVID-19, mRNA, LNP-S, bivalent, PF, 30 mcg/0.3 mL dose 2 [place] [facility] 12/14/2023 09:47:55 RSV, recombinant, protein subunit RSVpreF, adjuvant reconstituted, 0.5 mL, PF 3 [place] [facility] 12/14/2023 09:47:55 COVID-19, mRNA, LNP-S, PF, kadeem-sucrose, 30 mcg/0.3 mL 3 [place] [facility] 12/14/2023 09:47:55 pneumococcal polysaccharide PPV23 9 [place] [facility] 12/14/2023 09:47:55 Tdap 1 [place] [facility] 12/14/2023 09:47:55 Tdap 1 [place] [facility] 12/14/2023 09:47:55 Pneumococcal conjugate PCV 13 1 [place] [facility] 12/14/2023 09:47:55 zoster live 5 [place] [facility] 12/14/2023 09:47:55 Influenza, split virus, trivalent, preservative 4 [place] [facility] 12/14/2023 09:47:55 Influenza, split virus, trivalent, preservative 3 [place] [facility] 12/14/2023 09:47:55 Influenza, split virus, trivalent, PF 6 [place] [facility] 12/14/2023 09:47:55 Influenza, split virus, quadrivalent, PF 8 [place] [facility] 12/14/2023 09:47:55 Influenza, split virus, quadrivalent, PF 7 [place] [facility] 12/14/2023 09:47:55 Past Encounters Encounter ID Performer Location Encounter Start Date Encounter Closed Date Diagnosis/Indication Diagnosis SNOMED-CT Code Diagnosis ICD10 Code Diagnosis Note [id number] Brando De La Rosa MD [facility] [place] [address] [place] [address] 12/14/2023 09:42:58 12/14/2023 10:32:57 Hyperlipidemia 76301408 E78.5 Hypothyroidism 91837323 E03.9 Long-term drug therapy 195559364 Z79.899 Postmenopausal state 764 61204 Z78.0 Health Concerns Section Related Observation LastModified by Organization Detai ls LastModified Time None Recorded Concern Status LastModified by Organization Details LastModified Time None Recorded Advance Directives Directive Y: Payers Encounter Date Sequence Insurance Name Policy Number Policy Venegas Covered Member ID Venegas Member ID Guarantor Name 12/14/2023 1 [employer] (MEDICARE REPLACEMENT PPO) [id number] 1 Michaela Celestin [id number] Michaela Celestin Notes Date Note Type Note Provider Name and Address Organization Details Recorded Time 12/14/2023 text/html continuity of medical problems hyperlipidemia tries to follow a low-fat diet. Hypothyroid had a little bit of problems on 50 mcg of Synthroid gave her some palpitations. Postmenopausal state needs bone density Brando De La Rosa MD Attn: Accounting,[address] [facility], [place], [address], [facility] 12/24/2023 19:22:03 OBGyn Episode No OBEpisode recorded.
--- OUTSIDE RECORDS SUMMARY | 2024-06-13 05:30 | XMS_ITS | Referral Summary ---
Author Organization [facility] Address [address] [place] [address] Care Team Providers Care Frickertron Checker Name Role Phone Unavailable Primary Care Provider Unavailabl e Source Comments [facility],non-[facility] Affiliates and Associated Physician Practices is amultiple site organization consisting of ambulatory clinics and hospital sitesin [place], [place], [place] and [place]. This disclosure is being madepursuant to the Care Everywhere program and may not contain all information available regarding this patient. Last updated 18.[facility] [employer] Social History Tobacco Use Types Packs/Day Years Used Date Smoking Tobacco: Never Assessed Sex and Gender Information Value Date Recorded Sex Assigned at Not on file Gender Identity Not on file Sexual Orientation Not on file Plan of Treatment Not on file
--- OUTSIDE RECORDS SUMMARY | 2024-06-13 05:30 | XMS_ITS | Clinical Summary ---
Author Organization [facility] [employer] Address [address] [place] [address] Care Team Providers Care Tire Setter Name Role Phone Unavailable Primary Care Provider Unavailabl e Source Comments [facility],non-owned Affiliates and Associated Physician Practices is amultiple site organization consisting of ambulatory clinics and hospital sitesin [place], [place], [place] and [place]. This disclosure is being madepursuant to the Care Everywhere program and may not contain all information available regarding this patient. Last updated 18.[facility] Social History Tobacco Use Types Packs/Day Years Used Date Smoking Tobacco: Never Assessed Sex and Gender Information Value Date Recorded Sex Assigned at Not on file Gender Identity Not on file Sexual Orientation Not on file Plan of Treatment Health Maintenance Due Date Last Done Comments BONE DENSITY TESTING 1954 COLOGUARD (AGES 45-75) - COL ON CA SCREENING 1954 COLON MONITORING 1954 COLONOSCOPY - COLON CA SCREENING 1954 CT COLONOGRAPHY - COLON CA SCREENING 1954 Colorectal Cancer Screening 1954 FIT - COLON CA SCREENING 1954 FLEX SIG - COLON CA SCREENING 1954 LIPID TESTING 1954 MAMMOGRAM 1954 HEPATITIS C SCREENING 06/22/1972 DTAP/TDAP/TD VACCINES (1 - Tdap) 1973 PNEUMOCOCCAL VACCINE 50+ (1 of 1 - PCV) 2004 ZOSTER VACCINE (1 of 2) 2004 COVID-19 VACCINE ( - 2023-2 5 season) 2024 INFLUENZA VACCINE (#1) 2024 DEPRESSION SCREENING 05/22/2024 MEDICARE AWV ? CALENDAR YEAR 2024 Respiratory Syncytial Virus (RSV) Vaccine Pt: or over 60 yrs (1 - 1-dose 75+ series) 2029 HEPATITIS B VACCINE Aged Out No longe r eligible based on patient's age to complete this topic HIB VACCINE Aged Out No longer eligi ble based on patient's age to complete this topic HPV VACCINE Aged Out No longer eligi ble based on patient's age to complete this topic MENINGOCOCCAL (Group B) VACCINE Aged Out No longer eligible based on patient's age to complete this topic MENINGOCOCCAL VACCINE Aged Out No elisabet tamara eligible based on patient's age to complete this topic
--- OUTSIDE RECORDS SUMMARY | 2024-06-13 05:30 | XMS_ITS | Data Portability ---
Author Organization [facility] Address [address] [place] [address] Care Team Providers Care Quality Assurance Supervisor Body Name Role Phone BRANDO WHITE Primary Care Provider [phone] Assessment Encounter Date Assessment Date Assessment LastModified by Organization Details LastModified Time 02/23/2023 02/23/2023 Annual gynecological exam performed. Patient will come back in a year unless there are new symptoms. [email or web address] Not available 02/23/2023 10:38:05 Plan of Treatment Reminders Order Date Submit Date Provider Last Modified By Organization Details Last Modified Time Details Appointments None recorded. Lab None recorded. Referral None recorded. Procedures None recorded. Surgeries None recorded. Imaging US, breast, unilateral - May perform Diagnostic mammo if required. 2021 [facility], [address], [place], [address], 13:02:47 Medication Orders tacrolimus 0.03 % topical ointment 2021 TELLURIDE [facility][id number], [address], [id number], 11:49:58 clobetasol 0.05 % topical ointment 2021 [facility], [address] [place], [place], [id number], 08/31/202 2 11:49:59 Imvexxy Maintenance Pack 4 mcg vaginal insert 2021 [place] [address] [facility] #[id number], [address], [place], [id number], 3 10:39:20 clobetasol 0.05 % topical ointment 2021 [facility]URIDE [facility], [address], [place], [phone], 10:52:12 tacrolimus 0.03 % topical ointment 2021 [facility]LLURIDE [facility], [address], [place], [id number], 10:52:10 Imvexxy Maintenance Pack 4 mcg vaginal insert 2021 [place] [address] [facility] #05337, [address], [place], [id number], 10:39:20 clobetasol 0.05 % topical ointment 2022 023 TELLURIDE [facility] #88753, [address], [place], [id number], 3 10:54:49 tacrolimus 0.03 % topical ointment 2022 023 TELLURIDE [facility] #45371, [address], [place], [id number], 3 10:54:48 Patient TargetsNo targets recorded. Patient InstructionsNo instructions recorded. Reason for Referral None Reported. 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 -No dyspl kiko ident ified . -See comme nt. Elect alphonse miller eulalio d by Marisela Fontana MD on 2021 at 11:45 AM ----- ----- ----- ----- ----- ----- ----- ----- ----- ----- ----- ----- ----- ----- ----- ----- ----- ---- COMME NT: Secti ons show skin with a dense derma l infla mmato ry infil trate compo sed predo minan tly of lymph ocyte s and occas ional plasm a cells . A GMS stain is negat keyshawn. The findi ngs are nonsp ecifi c but the diffe renti al diagn osis inclu dionne liche n planu s and liche n scler osus. Clini carmella corre latio n is neede d. CLINI CARMELLA INFOR MATIO N: n90.8 9 MICRO SCOPI C DESCR IPTIO N: A micro scopi c exami natio n was perfo rmed. GROSS DESCR IPTIO N: A. Vulva . The speci men is label ed with the patie nt's name and demog raphi cs only. Recei ashleigh in forma ousmane is a 0.3 x 0.3 x 0.2 cm fragm ent of king skin. It is bisec dandre and submi tted all in casse tte A1. Gross ed by Cyndi Bay on Not Available [facility] [address], [place], [address], 01/05/2022 12:49:23 03/17/20 22 03/16/2022 US, breas t, unila teral No observ ation record ed. [facility] [address], [place], [address], 03/23/2022 16:53:00 09/23/19 23 09/22/2022 MAMMO , scree nighat, bilat eral No observ ation record ed. [facility] [address], [place], [address], 11/08/2022 13:05:13 09/24/19 23 09/22/2022 MAMMO , scree ngihat, bilat eral No observ ation record ed. [address] [facility] [address], [place], [address], 11/08/2022 13:05:23 12/07/19 24 12/07/2023 MAMMO , scree nighat, bilat eral No observ ation record ed. [facility] [address], [place], [address], 12/08/2023 12:13:53 Result Notes None recorded. 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 11:27:48 Screening for malignant neoplasm of rectum Completed 201810/01/2021 Encounter for screening for malignant neoplasm of rectum;Rec orded Elsewhere: No Locatio n: [facility]: EHR Chroni c: N Practice ID: [id number] Billa ble Time: 10:00:00 AM Little nguyen [facility] 11:27:[address] Concept Completed 201810/01/2021 Encntr for general adult medical exam w/o abnormal findings;R ecorded Elsewhere: No Locatio n: [facility]: EHR Chroni c: N Practice ID: [id number] Billa ble Time: 10:00:00 AM Little nguyen [facility] 11:27:48 Problem Notes None recorded. Procedures Surgical History Date Name Laterality Status Provider Name and Address Organization Details Recorded Time 09/23/19 23 Date of Last Mammogram completed Daniela Jimenez [facility] 02/23/2023 10:39:39 01/05/20 22 biopsy of vulva completed Janell Dahl [facility] 09/01/2022 09:50:59 01/04/20 22 Vulvar Biopsy completed Vernell Arambula [facility]- [address], [place], [address], [facility] 01/04/2022 10:31:24 05/22/19 20 Date of Last Colonoscopy completed Little Wahl [facility] 10/05/2021 10:11:11 07/02/19 19 Date of Last Pap Smear completed Daniela Jimenez [facility] 02/23/2023 10:39:34 05/22/19 14 Xcapsl ctrc rmvl cplx wo ecp completed Janell Dahl [facility] 09/01/2022 10:59:53 05/22/19 10 Shoulder joint surgery completed Janell Dahl [facility] 09/01/2022 10:59:35 05/22/18 87 Abdominoplasty completed Janell Dahl [facility] 09/01/2022 10:59:15 05/22/18 61 tonsilectomy/gela oids completed Janellsimi Dahl [facility] 09/01/2022 11:00:03 Imaging Results Imaging Date Name Status LastModified by Organiz ation Details LastModified Time 03/16/2022 US, breast, unilateral completed [facility] [address], [place], [address], 03/23/2022 16:53:00 09/22/2022 MAMMO, screening, bilateral completed [email or web address] [address], [place], [address], 11/08/2022 13:05:13 09/22/2022 MAMMO, screening, bilateral completed [email or web address] [facility] [address], [place], [address], 11/08/2022 13:05:23 12/07/2023 MAMMO, screening, bilateral completed [facility] [address], [place], [address], 12/08/2023 12:13:53 Procedure Notes None recorded. Medical Equipment None Reported. Allergies Allergen ID Allergen Name Allergen Category Reaction Reaction Severity Criticality Documentation Date Start Date Code Code System Note Provider Name and Address Organization Details Recorded Time 96180 cephalexi n medicatio n Not available Not available Not available 10/05/20212230 RxNorm Little nguyen [facility] 10:08:09 Medications Name Sig Start Date Stop Date Status Note LastModified by Organization Details LastModified Time atorvasta tin 10 mg tablet TAKE 1 TABLET BY MOUTH EVERY DAY 10/05 completed Not Available Not Available Not Available prednisol one acetate 1 % eye drops,reji pension SHAKE LIQUID AND INSTILL 1 DROP IN RIGHT EYE FOUR TIMES DAILY 10/19 completed Not Available Not Available Not Available levothyro xine 50 mcg tablet TAKE 1 TABLET BY MOUTH EVERY DAY active Not Available Not Available No t Available tacrolimu s 0.03 % topical ointment APPLY THIN LAYER TOPICALL Y TO THE AFFECTED AREA 1 TO 3 TIMES EVERY WEEK active Not Available Not Available No t Available clobetaso l 0.05 % topical ointment APPLY A THIN LAYER EXTERNAL LY TO THE AFFECTED AREA 1 TO 2 TIMES PER DAY NEEDED FOR FLARE UPS active Not Available Not Available No t Available doxycycli ne hyclate 100 mg tablet TAKE 1 TABLET BY MOUTH TWICE DAILY FOR 7 DAYS 10/19 completed Not Available Not Available Not Available ezetimibe 10 mg tablet TAKE 1 TABLET BY MOUTH EVERY DAY active Not Available Not Available No t Available rosuvasta tin 10 mg tablet TAKE 1 TABLET BY MOUTH EVERY DAY 10/05 completed Not Available Not Available Not Available Vitamin D-3 with Aloe 120 mg-1,000 unit-10 mg tablet 10/05 completed Prescrib ed Elsewher e: Yes Loca tion: [facility] odify By: haris rosario DateTime : 07/02/19 10:00:00 AM Not Available Not Available Not Available Tirosint 13 mcg capsule take 1 capsule by oral route every day 10/05 completed Prescrib ed Elsewher e: Yes Loca tion: [facility] odify By: haris rosario DateTime : 07/02/19 10:00:00 AM Not Available Not Available Not Available Imgeorge Sawyer ce Pack 4 mcg vaginal insert Insert 1 supposit ory PV at HS 2x/wk as instruct ed 02/23 completed Not Available Not Available Not Available vitamin D3 1,250 mcg (50,000 unit)-vit crane K2 200 mcg capsule Take by oral route. active Not Available Not Available No t Available Paxlovid 300 mg (150 mg x 2)-100 mg tablets in a dose pack TK 2 NIRMATRE LVIR TS AND 1 RITONAVI R T TOGETHER PO BID FOR 5 DAYS TWICE DAILY FOR 5 DAYS 09/01 completed Not Available Not Available Not Available Vitals Date Recorded Body height Body weight Body mass index (BMI) Provider Name and Address Organization Details Last Updated DateTime 01/03/2022 165.1 cm 51425.25 g 22.4 kg/m2 Little Wahl [facility] 01/03/2022 10:44:13 Date Recorded Systolic blood pressure Diastolic blood pressure Provider Name and Address Organization Details Last Updated DateTime 01/03/2022 122 mm[Hg] 82 mm[Hg] Vernell Arambula, [facility] [address], [place], [address], [facility] 01/04/2022 10:38:39 Date Recorded Body height Systolic blood pressure Diastolic blood pressure Provider Name and Address Organization Details Last Updated DateTime 01/19/2022 165.1 cm 120 mm[Hg] 82 mm[Hg] Little Wahl [facility] 01/19/2022 11:08:54 Date Recorded Body height Body weight Body mass index (BMI) Systolic blood pressure Diastolic blood pressure Provider Name and Address Organization Details Last Updated DateTime 03/02/2022 165.1 cm 91872.25 g 22.4 kg/m2 128 mm[Hg] 70 mm[Hg] Little Wahl [facility] 10:37:17 Date Recorded Body height Body mass index (BMI) Body weight Provider Name and Address Organization Details Last Updated DateTime 09/01/2022 165.1 cm 22.5 kg/m2 96859.97 g Janell Dahl [facility] 09/01/2022 10:53:46 Date Recorded Systolic blood pressure Diastolic blood pressure Provider Name and Address Organization Details Last Updated DateTime 09/01/2022 132 mm[Hg] 82 mm[Hg] Vernell Arambula [facility] [address], [place], [address], [facility] 09/01/2022 13:53:33 Date Recorded Body height Body mass index (BMI) Body weight Systolic blood pressure Diastolic blood pressure Provider Name and Address Organization Details Last Updated DateTime 02/23/2023 165.1 cm 22.5 kg/m2 82992.97 g 123 mm[Hg] 73 mm[Hg] Daniela Jimenez [facility] 10:38:20 Social History Question Answer Notes LastModified by Organizat ion Details LastModified Time Tobacco Smoking Status Never Smoker Little Wahl patrick, [facility] 10/05/2021 10:14:11 What Is Your Level Of Alcohol Consumption? Occasional Information not available 10/05/2021 Are You Blind Or Do You Have Difficulty Seeing? No Information n ot available 10/05/2021 What Is Your Level Of Caffeine Consumption? Occasional Information not available 10/05/2021 In The 14 Days Before Symptom Onset, Have You Had Close Contact With A Laboratory-confirm ed COVID-19 While That Case Was Ill? No [email or web address] Information n ot available 09/01/2022 In The 14 Days Before Symptom Onset, Have You Had Close Contact With A Person Who Is Under Investigation For COVID-19 While That Person Was Ill? No [email or web address] Information not available 09/01/2022 Have You Been To An Area Known To Be High Risk For COVID-19? No [email or web address] Information not available 09/01/2022 Are You Deaf Or Do You Have Serious Difficulty Hearing? No Information not available 10/05/2021 What Type Of Diet Are You Following? REGULAR Information n ot available 10/05/2021 Have You Ever Been Counseled For Unhealthy Alcohol Use? No [email or web address] Information not available 09/01/2022 Do You Use Your Seat Belt Or Car Seat Routinely? Yes Information not available 10/05/2021 Do You Have Smoke And Carbon Monoxide Detectors In Your Home? Yes Information not available 10/05/2021 Do You Feel Stressed (tense, Restless, Nervous, Or Anxious, Or Unable To Sleep At Night)? [id number] Information not available 10/05/2021 Do You Use Any Illicit Or Recreational Drugs? No Information not available 10/05/2021 Do You Use Sunscreen Routinely? Yes Information not available 10/05/2021 Has Tobacco Cessation Counseling Been Provided? No [email or web address] Information not available 09/01/2022 Do You Or Have You Ever Used Any Other Forms Of Tobacco Or Nicotine? No [email or web address] Information not available 09/01/2022 Sex: Unknown Functional Status Question Answer Note LastModified by Organizat ion Details LastModified Time Do you have difficulty walking or climbing stairs? No Information not available 10/05/2021 Are you able to walk? YESWOREST Information not available 10/05/2021 Are you able to care for yourself? Yes Information not available 10/05/2021 Do you have difficulty dressing or bathing? No Information not available 10/05/2021 What is your exercise level? Occasional Information not available 10/05/2021 Mental Status None recorded. Family History Relationship Description Onset Age of this Age Resolved Age Notes LastModified by Organization Details LastModified Time Brother Hypercholest erolemia Not available 2021 10:12:03 Brother Hypertensive disorder Not available 2021 10:12:08 Father Peptic ulcer with perforation AND obstruction Not available 09/19 10:12:25 Paternal Aunt Malignant neoplasm of uterus Not available 2021 10:12:37 Maternal Grandmother Pulmonary embolism Not available 2021 10:12:49 Mother Hypertensive disorder Not available 2021 10:13:02 Mother Hypercholest erolemia hyperl ipidem ia Not available 10/05/2021 10:13:14 Mother Ruptured abdominal aortic aneurysm Not available 2021 10:13:30 Mother Malignant tumor of breast Not available 2021 10:13:39 Sister Malignant tumor of lung Not available 2021 10:13:46 Medical History Condition Response Other N Blood Transfusion N Dermatologic Disorders N Gestational Diabetes N Anxiety Disorder N Autoimmune disease N Arthritis N Polyps N Infertility N Acid Reflux (GERD) N Cancer N Varicosities N Stroke N Neurologic/Epilepsy Y Fibromyalgia N Headaches N Kidney Disease N Heart Problems N Kidney or Bladder Problems N Eating Disorder N Art (IVF or FET) N Hepatitis/Liver Disease N No Past Medical History N Urinary Tract Infection N Asthma N Trauma/Violence N Thrombophilias N Allergies (Food, seasonal, environmental ) N Breast Cancer N Drug/Latex Allergies/Reactions Y Lung Disease N Defects or Inherited Disease N Breast Problem N Hematologic disorders N Anesthesia Complications N History of STI N Deep Vein Thrombosis N Polycystic ovary syndrome N History of abnormal pap N Endometriosis Y High Cholesterol N Thyroid Problems Y GI Problems N Anemia N Psychiatric Illness N Ovarian Cancer N Diabetes N Pulmonary (TB, Asthma) Y Eczema N Abuse/Domestic Violence N Depression/ depression N Heart Disease N Pre-Eclampsia N Hypertension N Osteoporosis N Gynecological History Statement/Question Response Abnormal Pap N Date of Last Mammogram 09/22/2022 Date of LMP 05/22/2008 STIs/STDs N HPV Vaccine N Current Control Method Menopause If Post Menopausal, Age at Menopause 53 Date of Last Colonoscopy 05/22/2019 Sexually Active? N Menses Monthly N Date of DEXA bone scan 07/20/2020 Age of first menstrual cycle 11 Date of Last Pap Smear 07/02/2018 LMP Unknown Obstetrics History GPAL:G 3 P 2 0 1 2 Type Value Full Term 2 Spontaneous 1 Living 2 Total 3 Past Encounters Encounter ID Performer Location Encounter Start Date Encounter Closed Date Diagnosis/Indication Diagnosis SNOMED-CT Code Diagnosis ICD10 Code Diagnosis Note [id number] Vernell Arambula [facility] [address] [address] 10/05/2021 09:31:14 10/05/2021 10:37:03 Gynecologic examination 37231841 Z01.419 Take Calcium with Vitamin D 12-1500mg daily. Do monthly self breast exams. It is advised to get annual flu shot in the fall and she could obtain at [facility] or [facility] clinic. If you haven't received the Tdap vaccine in the last 10 years you should obtain one as well. Have mammogram yearly, bone density every 2-3 years and colonoscop y every 5-10 years depending on findings and history. Engage in daily exercise of low impact aerobic exercise 45-60 minutes 4-5 times weekly. Avoid tobacco and illicit drugs as well as using moderation with alcohol intake less than 1-2 8 oz beverages daily. This lifestyle behavior pattern will lead to less health conditions and longer life span. If BMI greater than 25 weight watchers or dietary consult advised. Questions have been answered. Patient appears to understand instructio ns, but if you have any further questions call or respond to this email Pap/hpvUSP STF recommends against screening for cervical cancer in women older than 65yo, those who've had a hysterecto my for non-cancer indication s, & who have had adequate prior screening & are not otherwise at high risk for cervical cancer.STD Screen declinedGe netic Screen discussed & declinedCo elisabet Screen UTD PCPDexa Screen UTD PCPRoutine Labs UTD PCPMammo completed 2021-WN Vaginal dryness 72702479 N89.8 R23.8 Today we agreed to trial of topical imvexxy 4mcg on inner labia minora as there is a lot of irritation in this area from thinning skin due to postmenopa usal changes hypoestrog enic effects. Samples imvexxy 4mcg given to use topically at night with f/u in 2wks for vulva check [id number] Vernell Arambula [facility] [address],[place] [address] 10/19/2021 13:32:57 10/19/2021 14:31:42 Vaginal irritation [id number] N89.8 Improvemen t of inner left labia was achieved but not completely resolved up to now.We agreed to continue use x 8 wks but instead insertion vaginall twice a week low dose imvexxy 4mcg with daily moisturizi ng then return for vulvar check.Had a bx in 2015 which was neg. Time spent in visit is a total of 15 mins with at least 50% of visit consisting of counseling and review of plan of care. [id number] Vernell Arambula [facility] [address],[facility] [place] [address] 12/21/2021 10:30:12 12/21/2021 11:54:07 Lesion of vulva 449015323 N90.89 Today we discussed another vulvar biopsy for areas of concern that do not seem to be responding to general treatment. She voices having had a bx in 2013 but we talked about how skin cells & issues can change and we need to ensure this has not developed into any other issues yoon precancers /cancers.S he is agreeable to updating our tests but we will do it on another day & apply topical lidocaine and injectable . Time spent in visit is a total of 15 mins with at least 50% of visit consisting of counseling and review of plan of care. [id number] Vernell Arambula [facility] [address] [address] 01/03/2022 10:20:47 01/04/2022 17:03:12 Lesion of vulva 113296346 N90.89 See procedure notes from today's Vulvar bx procedure. Will continue current regimen & await results to determine further steps in plan of care. Pre/post procedure instructio ns given with understand ing verbalized . 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 Women with vulvar lichen planus frequently present with complaints of vulvar pain, burning, pruritus, soreness, or dyspareuni a (sometimes with post-coita l bleeding) [8,9]. Another prominent symptom that may be present is an irritating vaginal discharge that does not respond to standard therapies for vaginitis. However, this clinical scenario is not specific to lichen planus, as it occurs with other vulvar disorders Treatment: Tacrolimus ointment Failed topical steroid treatmentA greed to continue VCG/Vag estrogen therapy plus add Tacrolimus for 6wks then re-evaluat e. Topical tacrolimus may improve vulvar lichen planus via its immunosupp ressive properties . Potential disadvanta ges of topical tacrolimus therapy include greater cost in comparison to some topical corticoste roids and the frequent occurrence of local burning or tingling sensations with applicatio n of this therapy [26]. However, burning sensations often resolve with continued use of this therapy [26]. (UPTODATE 2021) Counseled on medication R/B's, Most common side effects, & use. All questions were answered to patient satisfacti on. RTO x 6wks vulvar/med check Time spent in visit is a total of 15 mins with at least 50% of visit consisting of counseling and review of plan of care. [id number] [facility] [address] [address] 03/02/2022 10:13:15 03/02/2022 11:16:32 Genital lichen planus 020524041 L43.9 Vulvar med checkDoing extremely well on current regimen which has relieved all her sx's of itching, burning, irritation in this area of concern confirmed to be lichen planus on Bx. We discussed maintenanc e therapy moving forward & instructio ns were reviewed.S he will f/u in 6mos vulvar/med check. Time spent in visit is a total of 15 mins with at least 50% of visit consisting of counseling and review of plan of care. Breast tenderness [id number] N64.4 Having some breast tenderness on left sideExam wnl except voiced tenderness upper outer quadrant of left breast sensitivit y/tenderne ss.Updated mammo 08/2021 wnlWill complete breast US & if needed may order diag mammo if required [id number] [facility] [address],[place] [address] 09/01/2022 10:13:09 09/01/2022 14:23:35 Genital lichen planus 132882941 L43.9 Vulvar med check x 6mos Doing extremely well on current regimen which has relieved all her sx's of itching, burning, irritation in this area of concern confirmed to be lichen planus on Bx. We discussed maintenanc e therapy moving forward & instructio ns were reviewed.S he will f/u in 1yr or prn for vulvar/med check. WWE q2yrs will contact for refills Time spent in visit is a total of 15 mins with at least 50% of visit consisting of counseling and review of plan of care. [id number] Vernell Arambula [facility] [address] [address] 02/23/2023 10:29:20 02/23/2023 11:04:48 Gynecologic examination [id number] Z01.419 Take Calcium with Vitamin D 12-1500mg daily. Do monthly self breast exams. It is advised to get annual flu shot in the fall and she could obtain at [facility] or [facility] care clinic. If you haven't received the Tdap vaccine in the last 10 years you should obtain one as well. Have mammogram yearly, bone density every 2-3 years and colonoscop y every 5-10 years depending on findings and history. Engage in daily exercise of low impact aerobic exercise 45-60 minutes 4-5 times weekly. Avoid tobacco and illicit drugs as well as using moderation with alcohol intake less than 1-2 8 oz beverages daily. This lifestyle behavior pattern will lead to less health conditions and longer life span. If BMI greater than 25 weight watchers or dietary consult advised. Questions have been answered. Patient appears to understand instructio ns, but if you have any further questions call or respond to this email Pap/hpvUSP STF recommends against screening for cervical cancer in women older than 65yo, those who've had a hysterecto my for non-cancer indication s, & who have had adequate prior screening & are not otherwise at high risk for cervical cancer. STD Screen declinedGe netic Screen discussed & declinedCo elisabet Screen UTD PCPDexa Screen UTD PCPRoutine Labs UTD PCPMammo completed 2022 PCP Genital lichen planus 23 [id number] L43.9 Vulva lichen planus doing well.Not having to use the prescribed ointments even weekly anymore.VC G's are still routinely followed with daily moisturizi ng.Use ointments PRN for flare ups (no flares for almost 5mos).Feel s she is doing really well. Health Concerns Section Related Observation LastModified by Organization Detai ls LastModified Time None Recorded Concern Status LastModified by Organization Details LastModified Time None Recorded Advance Directives Directive None Recorded Payers Encounter Date Sequence Insurance Name Policy Number Policy Venegas Covered Member ID Venegas Member ID Guarantor Name 01/03/2022 1 [facility] (MEDICARE REPLACEMENT/AD VANTAGE - PPO) [id number] Michaela Celestin [id number] Michaela Lomax [place] 01/19/2022 1 [facility] (MEDICARE REPLACEMENT/AD VANTAGE - PPO) [id number] Michaela Lomax [place] [id number] Michaela Lomax [place] 03/02/2022 1 [facility] (MEDICARE REPLACEMENT/AD VANTAGE - PPO) [id number] Michaela Lomax [place] [id number] Michaela M [place] 09/01/2022 1 [employer] (MEDICARE REPLACEMENT PPO) [id number] Michaela Lomax [place] [id number] Michaela M [place] 02/23/2023 1 [employer] (MEDICARE REPLACEMENT PPO) [id number] 1 Michaela Lomax [place] [id number] Michaela Lomax [place] Notes Date Note Type Note Provider Name and Address Organization Details Recorded Time 01/03/2022 text/html Here today for updated Vulvar bx for vulvar lesion. Vernell Arambula [facility] [address], [place], [address], [facility] 01/04/2022 14:23:56 01/19/2022 text/html Here today to review vulvar bx results. Vernell Arambula [facility] [address], [place], [address], [facility] 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 Vernell Arambula [facility] [address], [place], [address], [facility] 03/02/2022 11:02:28 09/01/2022 text/html Here today for 6mos med check for lichen's planus. Vernell Arambula [facility] [address], [place], [address], [facility] 09/01/2022 13:57:01 02/23/2023 text/html Annual Skin Therapist Post-MenopausalRe ported byDileep [place] Symptoms:no menopausal symptoms; normal vaginal lubrication Vaginal Bleeding:history of menopause having occurred; no history of post menopausal bleeding Urinary Symptoms:no hematuria; no incontinence; no nocturia; no urinary frequency Vulva:no genital lesion; no vulvar atrophy Vagina:normal vaginal discharge; no vaginal atrophy Breast:no breast lump; no nipple discharge; no breast pain Sexual Complaints:no sexual complaints Psychological Symptoms:no depression; no anxiety Preventive Measures:encourag e regular mammograms starting age 40; encourage self breast examination; encourage regular exercise; encourage no tobacco use; mammogram performed within the past year; history of recent colonoscopy Vernell Arambula [facility] [address], [place], [address], [facility] 02/23/2023 11:01:33 OBGyn Episode Ob Episode Information Episode Created Date Number of Fetuses Patient Bloodtype Patient rh Status Prepregnancy Weight lbs Domestic Partner Domestic Partner Phone Father Name Opal Polisher Status 10/06/19 22 1 CLOSED Fetus Data First Name Last Name Admitted to NICU Weight (g) Sex Living Outcome Pediatric Complications Fetus ID Race Codes Race Delivery Type F Full Term [id number] Vaginal Delivery Barak Calculation Initial Barak Date Initial Exam Date Initial Exam Provider Initial Ultrasound Date Last Menstrual Period Date Ultra Sound Weeks Gestation 0 Eighteen To Twenty Week Barak Update Ultra Sound Date Fundal Height At Umbil Quickening Date Ultra Sound Latest Weeks Gestation Final Barak Confirmed By Final Barak Confirmed Date Final Barak Date Ultra Sound Latest Days Gestation 0 0 Menstrual History Last Menstrual Date Menses Monthly On Bcp Conception Prior Menses Frequency Hcg Plus Date Menarche Onset Age Delivery Information Delivery Date Delivery Type Labor Anesthesia Weeks Gestation Incision Type Labor Labor Length Hrs Delivered By Post Complications Tubal Sterilization Discharge Date Comments 1 Discharge Information Feeding Method Contraceptive Method Maternal HG B and HCT Levels Ob Episode Information Episode Created Date Number of Fetuses Patient Bloodtype Patient rh Status Prepregnancy Weight lbs Domestic Partner Domestic Partner Phone Father Name Opal Polisher Status 09/02/19 23 1 CLOSED Fetus Data First Name Last Name Admitted to NICU Weight (g) Sex Living Outcome Pediatric Complications Fetus ID Race Codes Race Delivery Type , Spontane ous [id number] Barak Calculation Initial Barak Date Initial Exam Date Initial Exam Provider Initial Ultrasound Date Last Menstrual Period Date Ultra Sound Weeks Gestation 0 Eighteen To Twenty Week Barak Update Ultra Sound Date Fundal Height At Umbil Quickening Date Ultra Sound Latest Weeks Gestation Final Barak Confirmed By Final Barak Confirmed Date Final Barak Date Ultra Sound Latest Days Gestation 0 0 Menstrual History Last Menstrual Date Menses Monthly On Bcp Conception Prior Menses Frequency Hcg Plus Date Menarche Onset Age Delivery Information Delivery Date Delivery Type Labor Anesthesia Weeks Gestation Incision Type Labor Labor Length Hrs Delivered By Post Complications Tubal Sterilization Discharge Date Comments 6 Discharge Information Feeding Method Contraceptive Method Maternal HG B and HCT Levels Ob Episode Information Episode Created Date Number of Fetuses Patient Bloodtype Patient rh Status Prepregnancy Weight lbs Domestic Partner Domestic Partner Phone Father Name Opal Polisher Status 10/06/19 22 1 CLOSED Fetus Data First Name Last Name Admitted to NICU Weight (g) Sex Living Outcome Pediatric Complications Fetus ID Race Codes Race Delivery Type F Full Term [id number] Vaginal Delivery Braak Calculation Initial Barak Date Initial Exam Date Initial Exam Provider Initial Ultrasound Date Last Menstrual Period Date Ultra Sound Weeks Gestation 0 Eighteen To Twenty Week Barak Update Ultra Sound Date Fundal Height At Umbil Quickening Date Ultra Sound Latest Weeks Gestation Final Barak Confirmed By Final Barak Confirmed Date Final Barak Date Ultra Sound Latest Days Gestation 0 0 Menstrual History Last Menstrual Date Menses Monthly On Bcp Conception Prior Menses Frequency Hcg Plus Date Menarche Onset Age Delivery Information Delivery Date Delivery Type Labor Anesthesia Weeks Gestation Incision Type Labor Labor Length Hrs Delivered By Post Complications Tubal Sterilization Discharge Date Comments 9 Discharge Information Feeding Method Contraceptive Method Maternal HG B and HCT Levels
--- OUTSIDE RECORDS SUMMARY | 2024-06-13 05:30 | XMS_ITS | Data Portability ---
Author Organization [place] [facility], Main Office Address [address] [place] [address] Care Team Providers Care Business Support Professional Name Role Phone BRANDO DE LA ROSA Primary Care Provider Assessment Encounter Date Assessment Date Assessment LastModified by Organization Details LastModified Time 12/06/2022 12/06/2022 Set her up with ENT wellness discussed blood work ordered follow-up in 6 months [email or web address] Not available 12/09/2022 21:05:25 06/06/2023 06/06/2023 Blood work thyroid ultrasound Orthopedics for trochanteric bursitis [email or web address] Not available 06/06/2023 22:52:19 Plan of Treatment Reminders Order Date Submit Date Provider Last Modified By Organization Details Last Modified Time Details Appointments None recorded. Lab T3, free, serum or plasma 2022 023 ARLIN Not available 3 13:22:19 T4, free, serum 2022 023 ARLIN Not available 3 13:22:24 TSH, serum or plasma 2022 023 ARLIN Not available 3 13:31:55 lipid panel, serum 2022 023 ARLIN Not available 3 12:58:30 CMP, serum or plasma 2022 023 ARLIN Not available 3 12:58:41 CBC w/ auto diff 2022 023 ARLIN Not available 3 12:45:57 CBC w/ auto diff 2023 024 ARLIN Not available 4 13:09:11 lipid panel, serum 2023 024 ARLIN Not available 4 19:28:43 CMP, serum or plasma 2023 024 ARLIN Not available 4 19:28:47 T3, free, serum or plasma 2023 024 ARLIN Not available 4 19:48:14 T4, free, serum 2023 024 ARLIN Not available 4 20:21:37 TSH, serum or plasma 2023 024 ARLIN Not available 4 20:03:43 Referral ENT surgery referral 2022 023 cyl Oliver Burger MD, [address], [place], [address], 19:59:30 hearing screening referral 2022 023 cyl [facility], [address], [place], [address], 19:59:30 Procedures None recorded. Surgeries None recorded. Imaging US, thyroid 2023 024 [email or web address] Not available 11:10:32 Medication Orders None recorded. Patient TargetsNo targets recorded. Patient Instructions Encounter Date Encounter Id Patient Instructions Last Modified By Organization Details Last Modified Time 12/06/2022 [id number] dementia rating scale-2* [email or web address] Not available 12/06/2022 22:13:34 alcohol misuse* [email or web address] Not available 12/06/2022 22:13:34 depression screening* [email or web address] Not available 12/06/2022 22:13:34 multi-dimensiona l health assessment questionnaire* Not available 12/06/2022 22:13:34 Personalized Hea lt Plan and Screening Recommendations Advance Directives - Do you have one? Yes Advance Directives - Do we have your advance directive on file in your health record? Primary Prevention/Interven tion (prevents or decreases the chance of common diseases from occurring) Smoking Risk: Non Smoker Alcohol Misuse Screening: Negative Weight: Appropriate Physical activity: Appropriate physical activity Nutrition: Good Fall Risk (screened today): Low Vaccines Pneumococcal: Ordered Recommended today Recommended today, but you have declined No further needed Influenza: Chronic Disease Risks Stroke: Low Risk Intermediate Risk Heart Attack: Low risk Intermediate Risk Clogging of the Arteries: Low risk Intermediate Risk Diabetes: Low Risk I have no recommendations Secondary Prevention/Interven tion (detects treatable diseases before they may cause symptoms, disability, or ) Breast Cancer Screening with mammogram: Cervical/Uterine/Ov cherie Cancer Screening: Osteoporosis Screening: Your next DEXA in: Ordered Recomme nded today Date Screening Last Performed: 07/13/20 Colon Cancer Screening: Colonoscopy Date Screening Last Performed: 12/04/2019 with repeat recommendation for 5 years Eye Disease Screening: Dementia Risk: Low I have no recommendations Depression Screening: Negative Not available 12/06/2022 14:46:01 12/22/2022 [id number] the patient has plans for hearing aids and this is at her discretion [email or web address] Not available 12/22/2022 11:19:51 Reason for Referral ENT Surgery Referral for Minor ateral hearing loss Referring Physician: Brando De La Rosa, Internal Medicine, Encounter Date: 12/06/2022 Hearing Screening Referral f or Bilateral hearing loss Referring Physician: Brando De La Rosa, Internal Medicine, Encounter Date: 12/06/2022 Results Created Date Observation Date Name Description Value Unit Range Abnormal Flag Note LastModifiedBy Organization Detail LastModifiedTime 01/15/2001/14/2022 TSH thyroid-stim ulating hormone 4.290 uIU/m L 0.465- 4.680 Not Available [facility] (Lab) [address] [place], [address], 01/14/2022 15:05:51 01/15/2001/14/2022 T3 FREE free T3 3.1 pg/mL 2.77-5 .27 Not Available [facility] (Lab) [address] [place], [address], 01/14/2022 14:51:30 01/15/20 22 01/14/2022 T4 FREE free T4 1.33 NG/dL 0.78-2 .19 Not Available [facility] (Lab) [address] [place], [address], 01/14/2022 14:51:24 01/15/20 22 01/14/2022 LIPID PANEL cholesterol 193 mg/dL 140-19 9 NIH ANUPAM NSUS RECOM MENDA TION FOR JAMIE STERO L: ADULT CHILD LOW RISK: <200 <170 BORDE RLINE : <200- 239 ----- HIGH RISK: >240 >200 Not Available [facility] (Lab) [address] [place], [address], 01/14/2022 14:44:44 01/15/20 22 01/14/2022 LIPID PANEL triglyceride s 102 mg/dL 0-150 NIH ANUPAM NSUS REPOR T RECOM MENDA TION FOR TRIGL YCERI FELICIA: ADULT CHILD LOW RISK: <150 ----- BODER LINE: 150-1 99 ----- HIGH RISK: >200 ----- Not Available [facility] (Lab) [address] [place], [address], 01/14/2022 14:44:44 01/15/20 22 01/14/2022 LIPID PANEL HDL cholesterol 68 mg/dL 40- Not Available [facility] (Lab) [address] [place], [address], 01/14/2022 14:44:44 01/15/20 22 01/14/2022 LIPID PANEL LDL cholesterol, calculated 105 mg/dL 0-130 NIH ANUPAM NSUS REPOR T RECOM MENDA TIONS FOR LDL: ADULT CHILD LOW RISK <130 <110 (OPTI MAL LDL) <100 ----- BORDE RLINE : 130-1 59 ----- HIGH RISK: >160 >130 A TRIGL YCERI DE RESUL T >400 INVAL IDATE S THE CALCU LATIO N FOR LDL FRACT IONAT ION - THE LDL RESUL T WILL NOT BE REPOR KIMI. Not Available [facility] (Lab) [address] [place], [address], 01/14/2022 14:44:44 01/15/20 22 01/14/2022 COMPR EHENS STAR METAB OLIC PANEL sodium 139 mmol/ L 137-14 5 Not Available [facility] (Lab) [address] [place], [address], 01/14/2022 14:44:42 01/15/20 22 01/14/2022 COMPR EHENS STAR METAB OLIC PANEL potassium 4.3 mmol/ L 3.5-5. 1 Not Available [facility] (Lab) [address] [place], [address], 01/14/2022 14:44:42 01/15/20 22 01/14/2022 COMPR EHENS STAR METAB OLIC PANEL chloride 104 mmol/ L 98-107 Not Available [facility] (Lab) [address] [place], [address], 01/14/2022 14:44:42 01/15/20 22 01/14/2022 COMPR EHENS STAR METAB OLIC PANEL carbon dioxide 31 mmol/ L 22-30 high Not Available [facility] (Lab) [address] [place], [address], 01/14/2022 14:44:42 01/15/20 22 01/14/2022 COMPR EHENS STAR METAB OLIC PANEL anion gap 8.3 mmol/ L 14-22 low Not Available [facility] (Lab) [address] [place], [address], 01/14/2022 14:44:42 01/15/20 22 01/14/2022 COMPR EHENS STAR METAB OLIC PANEL glucose 92 mg/dL 70-99 Not Available [facility] (Lab) [address] [place], [address], 01/14/2022 14:44:42 01/15/20 22 01/14/2022 COMPR EHENS STAR METAB OLIC PANEL BUN 15 mg/dL 8-19 Not Available [facility] (Lab) [address] [place], [address], 01/14/2022 14:44:42 01/15/20 22 01/14/2022 COMPR EHENS STAR METAB OLIC PANEL creatinine 0.77 mg/dL 0.66-1 .25 Not Available [facility] (Lab) [address] [facility] [place], [address], 01/14/2022 14:44:42 01/15/20 22 01/14/2022 COMPR EHENS STAR METAB OLIC PANEL GFR >60 Refer ence Range : [place] ge GFR Healt hy Adult : >60 mL/mi n/1.7 3 m2 Chron ic Kidne y Disea se: 15-60 mL/mi n/1.7 3 m2 Kidne y Failu re: <15/m L/min /1.73 m2 www.n iddk. nih.g ov The MDRD study equat ion has not been valid ated in child roseann <18 years of age; pregn ant women ; the elder ly >85 years of age; or in some racia l or ethni c subgr oups, such as Cedric nics. Outsi de the valid ated jay jay eters , estim ated GFR is less accur ate, requi ring clini carmella judgm ent on a case- by-ca se basis . Clini carmella inter preta tion for other races and ages must be made by the clini myles. The MDRD study equat ion has not been valid ated for the evalu ation of serum creat inine relat ed to nutri cyndi l statu s or medic ation usage . For perso ns <18 years of age, a pedia tric GFR calcu lator is avail able on the F websi te: https ://brian w.steve turner.o rg/pr maress ional s/kdo qi/gf r_cal culat or Not Available [facility] (Lab) [address] [place], [address], 01/14/2022 14:44:42 01/15/20 22 01/14/2022 COMPR EHENS STAR METAB OLIC PANEL alkaline phosphatase 107 U/L 38-126 Not Available [facility] (Lab) [address] [place], [address], 01/14/2022 14:44:42 01/15/20 22 01/14/2022 COMPR EHENS STAR METAB OLIC PANEL alanine aminotransfe rase 24 U/L 0-35 Not Available [facility] (Lab) [address] [place], [address], 01/14/2022 14:44:42 01/15/20 22 01/14/2022 COMPR EHENS STAR METAB OLIC PANEL aspartate aminotransfe rase 36 U/L 15-37 Not Available [facility] (Lab) [address] [place], [address], 01/14/2022 14:44:42 01/15/20 22 01/14/2022 COMPR EHENS STAR METAB OLIC PANEL bilirubin, total 0.60 mg/dL 0.20-1 .30 Not Available [facility] (Lab) [address] [place], [address], 01/14/2022 14:44:42 01/15/20 22 01/14/2022 COMPR EHENS STAR METAB OLIC PANEL calcium 9.2 mg/dL 8.4-10 .2 Not Available [facility] (Lab) [address] [place], [address], 01/14/2022 14:44:42 01/15/20 22 01/14/2022 COMPR EHENS STAR METAB OLIC PANEL total protein 7.1 g/dL 6.3-8. 2 Not Available [facility] (Lab) [address] [place], [address], 01/14/2022 14:44:42 01/15/20 22 01/14/2022 COMPR EHENS STAR METAB OLIC PANEL albumin 4.4 g/dL 3.0-4. 4 Not Available [facility] (Lab) [address] [place], [address], 01/14/2022 14:44:42 01/15/20 22 01/14/2022 COMPR EHENS STAR METAB OLIC PANEL globulin 2.7 g/dL 2.6-4. 2 Not Available [facility] (Lab) [address] [place], [address], 01/14/2022 14:44:42 01/15/20 22 01/14/2022 COMPR EHENS STAR METAB OLIC PANEL A/G ratio 1.6 ratio 1.0-2. 0 Not Available [facility] (Lab) [address] [place], [address], 01/14/2022 14:44:42 12/10/19 23 12/09/2022 CBC/C OMPLE TE BLD COUNT W/DIF F white blood cells 4.1 x10'3 /uL 4.2-10 .8 low Not Available [facility] (Lab) [address] [place], [address], 12/09/2022 12:45:56 12/10/19 23 12/09/2022 CBC/C OMPLE TE BLD COUNT W/DIF F red blood cells 5.31 x10'6 /uL 3.80-5 .20 high Not Available [facility] (Lab) [address] [place], [address], 12/09/2022 12:45:56 12/10/19 23 12/09/2022 CBC/C OMPLE TE BLD COUNT W/DIF F hemoglobin 15.2 g/dL 12.0-1 5.6 Not Available [facility] (Lab) [address] [place], [address], 12/09/2022 12:45:56 12/10/19 23 12/09/2022 CBC/C OMPLE TE BLD COUNT W/DIF F hematocrit 48.3 % 35.7-4 5.7 high Not Available [facility] (Lab) [address] [place], [address], 12/09/2022 12:45:56 12/10/19 23 12/09/2022 CBC/C OMPLE TE BLD COUNT W/DIF F mean red cell volume 91.0 fL 82.0-9 9.0 Not Available [facility] (Lab) [address] [place], [address], 12/09/2022 12:45:56 12/10/19 23 12/09/2022 CBC/C OMPLE TE BLD COUNT W/DIF F mean red cell hemoglobin 28.6 pg 27.0-3 3.0 Not Available [facility] (Lab) [address] [place], [address], 12/09/2022 12:45:56 12/10/19 23 12/09/2022 CBC/C OMPLE TE BLD COUNT W/DIF F mean RBC HGB concentratio n 31.5 g/dL 31.0-3 6.0 Not Available [facility] (Lab) [address] [place], [address], 12/09/2022 12:45:56 12/10/19 23 12/09/2022 CBC/C OMPLE TE BLD COUNT W/DIF F red cell distribution width 13.2 % 11.8-1 5.5 Not Available [facility] (Lab) [address] [place], [address], 12/09/2022 12:45:56 12/10/19 23 12/09/2022 CBC/C OMPLE TE BLD COUNT W/DIF F platelets 205 x10'3 /uL 150-40 0 Not Available [facility] (Lab) [address] [place], [address], 12/09/2022 12:45:56 12/10/19 23 12/09/2022 CBC/C OMPLE TE BLD COUNT W/DIF F mean platelet volume 10.9 fL 9.0-12 .4 Not Available [facility] (Lab) [address] [place], [address], 12/09/2022 12:45:56 12/10/19 23 12/09/2022 CBC/C OMPLE TE BLD COUNT W/DIF F neutrophils 49.0 % 39.0-7 2.0 Not Available [facility] (Lab) [address] [place], [address], 12/09/2022 12:45:56 12/10/19 23 12/09/2022 CBC/C OMPLE TE BLD COUNT W/DIF F lymphocytes 34.5 % 16.0-4 7.0 Not Available [facility] (Lab) [address] [place], [address], 12/09/2022 12:45:56 12/10/19 23 12/09/2022 CBC/C OMPLE TE BLD COUNT W/DIF F monocytes 12.6 % 5.0-12 .0 high Not Available [facility] (Lab) [address] [place], [address], 12/09/2022 12:45:56 12/10/19 23 12/09/2022 CBC/C OMPLE TE BLD COUNT W/DIF F eosinophils 2.7 % 1.0-7. 0 Not Available [facility] (Lab) [address] [place], [address], 12/09/2022 12:45:56 12/10/19 23 12/09/2022 CBC/C OMPLE TE BLD COUNT W/DIF F basophils 1.0 % 0.0-2. 0 Not Available [facility] (Lab) [address] [place], [address], 12/09/2022 12:45:56 12/10/19 23 12/09/2022 CBC/C OMPLE TE BLD COUNT W/DIF F immature granulocytes 0.2 % 0.00-0 .50 Not Available [facility] (Lab) [address] [place], [address], 12/09/2022 12:45:56 12/10/19 23 12/09/2022 CBC/C OMPLE TE BLD COUNT W/DIF F neutrophils, absolute count 2.03 x10'3 /uL 1.5-8. 0 Not Available [facility] (Lab) [address] [place], [address], 12/09/2022 12:45:56 12/10/19 23 12/09/2022 CBC/C OMPLE TE BLD COUNT W/DIF F lymphocytes, absolute count 1.43 x10'3 /uL 1.07-3 .43 Not Available [facility] (Lab) [address] [place], [address], 12/09/2022 12:45:56 12/10/19 23 12/09/2022 CBC/C OMPLE TE BLD COUNT W/DIF F monocytes, absolute count 0.52 x10'3 /uL 0.29-0 .99 Not Available [facility] (Lab) [address] [place], [address], 12/09/2022 12:45:56 12/10/19 23 12/09/2022 CBC/C OMPLE TE BLD COUNT W/DIF F eosinophils, absolute count 0.11 x10'3 /uL 0.02-0 .53 Not Available [facility] (Lab) [address] [place], [address], 12/09/2022 12:45:56 12/10/19 23 12/09/2022 CBC/C OMPLE TE BLD COUNT W/DIF F basophils, absolute count 0.04 x10'3 /uL 0.01-0 .08 Not Available [facility] (Lab) [address] [place], [address], 12/09/2022 12:45:56 12/10/19 23 12/09/2022 CBC/C OMPLE TE BLD COUNT W/DIF F immature granulocytes ,absolute 0.01 x10'3 /uL 0.00-0 .05 Not Available [facility] (Lab) [address] [place], [address], 12/09/2022 12:45:56 12/10/19 23 12/09/2022 CBC/C OMPLE TE BLD COUNT W/DIF F nucleated red blood cells 0.0 % -0 Not Available [facility] (Lab) [address] [place], [address], 12/09/2022 12:45:56 12/10/19 23 12/09/2022 CBC/C OMPLE TE BLD COUNT W/DIF F NRBC# 0.00 x10'3 /uL Not Available [facility] (Lab) [address] [place], [address], 12/09/2022 12:45:56 12/10/19 23 12/09/2022 LIPID PANEL cholesterol 189 mg/dL 140-19 9 NIH ANUPAM NSUS RECOM MENDA TION FOR JAMIE STERO L: ADULT CHILD LOW RISK: <200 <170 BORDE RLINE : <200- 239 ----- HIGH RISK: >240 >200 Not Available [facility] (Lab) [address] [place], [address], 12/09/2022 12:58:29 12/10/19 23 12/09/2022 LIPID PANEL triglyceride s 118 mg/dL 0-150 NIH ANUPAM NSUS REPOR T RECOM MENDA TION FOR TRIGL YCERI FELICIA: ADULT CHILD LOW RISK: <150 ----- BODER LINE: 150-1 99 ----- HIGH RISK: >200 ----- Not Available [facility] (Lab) [address] [place], [address], 12/09/2022 12:58:29 12/10/19 23 12/09/2022 LIPID PANEL HDL cholesterol 77 mg/dL 40- Not Available [facility] (Lab) [address] [place], [address], 12/09/2022 12:58:29 12/10/19 23 12/09/2022 LIPID PANEL LDL cholesterol, calculated 88 mg/dL 0-130 NIH ANUPAM NSUS REPOR T RECOM MENDA TIONS FOR LDL: ADULT CHILD LOW RISK <130 <110 (OPTI MAL LDL) <100 ----- BORDE RLINE : 130-1 59 ----- HIGH RISK: >160 >130 A TRIGL YCERI DE RESUL T >400 INVAL IDATE S THE CALCU LATIO N FOR LDL FRACT IONAT ION - THE LDL RESUL T WILL NOT BE REPOR KIMI. Not Available [facility] (Lab) [address] [place], [address], 12/09/2022 12:58:29 12/10/19 23 12/09/2022 COMPR EHENS STAR METAB OLIC PANEL sodium 140 mmol/ L 137-14 5 Not Available [facility] (Lab) [address] [place], [address], 12/09/2022 12:58:41 12/10/19 23 12/09/2022 COMPR EHENS STAR METAB OLIC PANEL potassium 4.3 mmol/ L 3.5-5. 1 Not Available [facility] (Lab) [address] [place], [address], 12/09/2022 12:58:41 12/10/19 23 12/09/2022 COMPR EHENS STAR METAB OLIC PANEL chloride 104 mmol/ L 98-107 Not Available [facility] (Lab) [address] [place], [address], 12/09/2022 12:58:41 12/10/19 23 12/09/2022 COMPR EHENS STAR METAB OLIC PANEL carbon dioxide 31 mmol/ L 22-30 high Not Available [facility] (Lab) [address] [place], [address], 12/09/2022 12:58:41 12/10/19 23 12/09/2022 COMPR EHENS STAR METAB OLIC PANEL anion gap 9.3 mmol/ L 14-22 low Not Available [facility] (Lab) [address] [place], [address], 12/09/2022 12:58:41 12/10/19 23 12/09/2022 COMPR EHENS STAR METAB OLIC PANEL glucose 81 mg/dL 70-99 Not Available [facility] (Lab) [address] [place], [address], 12/09/2022 12:58:41 12/10/19 23 12/09/2022 COMPR EHENS STAR METAB OLIC PANEL BUN 21 mg/dL 8-19 high Not Available [facility] (Lab) [address] [place], [address], 12/09/2022 12:58:41 12/10/19 23 12/09/2022 COMPR EHENS STAR METAB OLIC PANEL creatinine 0.74 mg/dL 0.66-1 .25 Not Available [facility] (Lab) [address] [place], [address], 12/09/2022 12:58:41 12/10/19 23 12/09/2022 COMPR EHENS STAR METAB OLIC PANEL GFR >60 Refer ence Range : [place] GFR Healt hy Adult : >60 mL/mi n/1.7 3 m2 Chron ic Kidne y Disea se: 15-60 mL/mi n/1.7 3 m2 Kidne y Failu re: <15/m L/min /1.73 m2 www.n iddk. nih.g ov The MDRD study equat ion has not been valid ated in child roseann <18 years of age; pregn ant women ; the elder ly >85 years of age; or in some racia l or ethni c subgr oups, such as Hispa nics. Outsi de the valid ated jay jay eters , estim ated GFR is less accur ate, requi ring clini carmella judgm ent on a case- by-ca se basis . Clini carmella inter preta tion for other races and ages must be made by the clini myles. The MDRD study equat ion has not been valid ated for the evalu ation of serum creat inine relat ed to nutri cyndi l statu s or medic ation usage . For perso ns <18 years of age, a pedia tric GFR calcu lator is avail able on the [facility] websi te: https ://brian turner.o rebeca/pr maress ional s/kdo qi/gf r_cal culat or Not Available [facility] (Lab) [address] [place], [address], 12/09/2022 12:58:41 12/10/19 23 12/09/2022 COMPR EHENS STAR METAB OLIC PANEL alkaline phosphatase 94 U/L 38-126 Not Available [facility] (Lab) [address] [place], [address], 12/09/2022 12:58:41 12/10/19 23 12/09/2022 COMPR EHENS STAR METAB OLIC PANEL alanine aminotransfe rase 34 U/L 0-35 Not Available [facility] (Lab) [address] [place], [address], 12/09/2022 12:58:41 12/10/19 23 12/09/2022 COMPR EHENS STAR METAB OLIC PANEL aspartate aminotransfe rase 40 U/L 15-37 high Not Available [facility] (Lab) [address] [place], [address], 12/09/2022 12:58:41 12/10/19 23 12/09/2022 COMPR EHENS STAR METAB OLIC PANEL bilirubin, total 0.50 mg/dL 0.20-1 .30 Not Available [facility] (Lab) [address] [place], [address], 12/09/2022 12:58:41 12/10/19 23 12/09/2022 COMPR EHENS STAR METAB OLIC PANEL calcium 8.9 mg/dL 8.4-10 .2 Not Available [facility] (Lab) [address] [place], [address], 12/09/2022 12:58:41 12/10/19 23 12/09/2022 COMPR EHENS STAR METAB OLIC PANEL total protein 7.0 g/dL 6.3-8. 2 Not Available [facility] (Lab) [address] [place], [address], 12/09/2022 12:58:41 12/10/19 23 12/09/2022 COMPR EHENS STAR METAB OLIC PANEL albumin 4.2 g/dL 3.0-4. 4 Not Available [facility] (Lab) [address] [place], [address], 12/09/2022 12:58:41 12/10/19 23 12/09/2022 COMPR EHENS STAR METAB OLIC PANEL globulin 2.8 g/dL 2.6-4. 2 Not Available [facility] (Lab) [address] [place], [address], 12/09/2022 12:58:41 12/10/19 23 12/09/2022 COMPR EHENS STAR METAB OLIC PANEL A/G ratio 1.5 ratio 1.0-2. 0 Not Available [facility] (Lab) [address] [place], [address], 12/09/2022 12:58:41 12/10/19 23 12/09/2022 T3 FREE free T3 2.8 pg/mL 2.77-5 .27 Not Available [facility] (Lab) [address] [place], [address], 12/09/2022 13:22:19 12/10/19 23 12/09/2022 T4 FREE free T4 0.95 NG/dL 0.78-2 .19 Not Available [facility] (Lab) [address] [place], [address], 12/09/2022 13:22:24 12/10/19 23 12/09/2022 TSH thyroid-stim ulating hormone 5.030 uIU/m L 0.465- 4.680 high Not Available [facility] (Lab) [address] [place], [address], 12/09/2022 13:31:55 06/13/19 24 06/13/2023 CBC/C OMPLE TE BLD COUNT W/DIF F white blood cells 4.4 x10'3 /uL 4.2-10 .8 Not Available [facility] (Lab) [address] [place], [address], 06/13/2023 13:09:11 06/13/19 24 06/13/2023 CBC/C OMPLE TE BLD COUNT W/DIF F red blood cells 5.09 x10'6 /uL 3.80-5 .20 Not Available [facility] (Lab) [address] [place], [address], 06/13/2023 13:09:11 06/13/19 24 06/13/2023 CBC/C OMPLE TE BLD COUNT W/DIF F hemoglobin 15.2 g/dL 12.0-1 5.6 Not Available [facility] (Lab) [address] [place], [address], 06/13/2023 13:09:11 06/13/19 24 06/13/2023 CBC/C OMPLE TE BLD COUNT W/DIF F hematocrit 47.7 % 35.7-4 5.7 high Not Available [facility] (Lab) [address] [place], [address], 06/13/2023 13:09:11 06/13/19 24 06/13/2023 CBC/C OMPLE TE BLD COUNT W/DIF F mean red cell volume 93.7 fL 82.0-9 9.0 Not Available [facility] (Lab) [address] [place], [address], 06/13/2023 13:09:11 06/13/19 24 06/13/2023 CBC/C OMPLE TE BLD COUNT W/DIF F mean red cell hemoglobin 29.9 pg 27.0-3 3.0 Not Available [facility] (Lab) [address] [place], [address], 06/13/2023 13:09:11 06/13/19 24 06/13/2023 CBC/C OMPLE TE BLD COUNT W/DIF F mean RBC HGB concentratio n 31.9 g/dL 31.0-3 6.0 Not Available [facility] (Lab) [address] [place], [address], 06/13/2023 13:09:11 06/13/19 24 06/13/2023 CBC/C OMPLE TE BLD COUNT W/DIF F red cell distribution width 13.3 % 11.8-1 5.5 Not Available [facility] (Lab) [address] [place], [address], 06/13/2023 13:09:11 06/13/19 24 06/13/2023 CBC/C OMPLE TE BLD COUNT W/DIF F platelets 202 x10'3 /uL 150-40 0 Not Available [facility] (Lab) [address] [place], [address], 06/13/2023 13:09:11 06/13/19 24 06/13/2023 CBC/C OMPLE TE BLD COUNT W/DIF F mean platelet volume 11.4 fL 9.0-12 .4 Not Available [facility] (Lab) [address] [place], [address], 06/13/2023 13:09:11 06/13/19 24 06/13/2023 CBC/C OMPLE TE BLD COUNT W/DIF F neutrophils 51.4 % 39.0-7 2.0 Not Available [facility] (Lab) [address] [place], [address], 06/13/2023 13:09:11 06/13/19 24 06/13/2023 CBC/C OMPLE TE BLD COUNT W/DIF F lymphocytes 32.9 % 16.0-4 7.0 Not Available [facility] (Lab) [address] [place], [address], 06/13/2023 13:09:11 06/13/19 24 06/13/2023 CBC/C OMPLE TE BLD COUNT W/DIF F monocytes 12.6 % 5.0-12 .0 high Not Available [facility] (Lab) [address] [place], [address], 06/13/2023 13:09:11 06/13/19 24 06/13/2023 CBC/C OMPLE TE BLD COUNT W/DIF F eosinophils 2.0 % 1.0-7. 0 Not Available [facility] (Lab) [address] [place], [address], 06/13/2023 13:09:11 06/13/19 24 06/13/2023 CBC/C OMPLE TE BLD COUNT W/DIF F basophils 0.9 % 0.0-2. 0 Not Available [facility] (Lab) [address] [place], [address], 06/13/2023 13:09:11 06/13/19 24 06/13/2023 CBC/C OMPLE TE BLD COUNT W/DIF F immature granulocytes 0.2 % 0.00-0 .50 Not Available [facility] (Lab) [address] [place], [address], 06/13/2023 13:09:11 06/13/19 24 06/13/2023 CBC/C OMPLE TE BLD COUNT W/DIF F neutrophils, absolute count 2.28 x10'3 /uL 1.5-8. 0 Not Available [facility] (Lab) [address] [place], [address], 06/13/2023 13:09:11 06/13/19 24 06/13/2023 CBC/C OMPLE TE BLD COUNT W/DIF F lymphocytes, absolute count 1.46 x10'3 /uL 1.07-3 .43 Not Available [facility] (Lab) [address] [place], [address], 06/13/2023 13:09:11 06/13/19 24 06/13/2023 CBC/C OMPLE TE BLD COUNT W/DIF F monocytes, absolute count 0.56 x10'3 /uL 0.29-0 .99 Not Available [facility] (Lab) [address] [place], [address], 06/13/2023 13:09:11 06/13/19 24 06/13/2023 CBC/C OMPLE TE BLD COUNT W/DIF F eosinophils, absolute count 0.09 x10'3 /uL 0.02-0 .53 Not Available [facility] (Lab) [address] [place], [address], 06/13/2023 13:09:11 06/13/19 24 06/13/2023 CBC/C OMPLE TE BLD COUNT W/DIF F basophils, absolute count 0.04 x10'3 /uL 0.01-0 .08 Not Available [facility] (Lab) [address] [place], [address], 06/13/2023 13:09:11 06/13/19 24 06/13/2023 CBC/C OMPLE TE BLD COUNT W/DIF F immature granulocytes ,absolute 0.01 x10'3 /uL 0.00-0 .05 Not Available [facility] (Lab) [address] [place], [address], 06/13/2023 13:09:11 06/13/19 24 06/13/2023 CBC/C OMPLE TE BLD COUNT W/DIF F nucleated red blood cells 0.0 % -0 Not Available [facility] (Lab) [address] [place], [address], 06/13/2023 13:09:11 06/13/19 24 06/13/2023 CBC/C OMPLE TE BLD COUNT W/DIF F NRBC# 0.00 x10'3 /uL Not Available [facility] (Lab) [address] [place], [address], 06/13/2023 13:09:11 06/13/19 24 06/13/2023 LIPID PANEL cholesterol 186 mg/dL 140-19 9 NIH ANUPAM NSUS RECOM MENDA TION FOR JAMIE STERO L: ADULT CHILD LOW RISK: <200 <170 BORDE RLINE : <200- 239 ----- HIGH RISK: >240 >200 Not Available [facility] (Lab) [address] [place], [address], 06/13/2023 19:28:43 06/13/19 24 06/13/2023 LIPID PANEL triglyceride s 104 mg/dL 0-150 NIH ANUPAM NSUS REPOR T RECOM MENDA TION FOR TRIGL YCERI FELICIA: ADULT CHILD LOW RISK: <150 ----- BODER LINE: 150-1 99 ----- HIGH RISK: >200 ----- Not Available [facility] (Lab) [address] [place], [address], 06/13/2023 19:28:43 06/13/19 24 06/13/2023 LIPID PANEL HDL cholesterol 71 mg/dL 40- Not Available [facility] (Lab) [address] [place], [address], 06/13/2023 19:28:43 06/13/19 24 06/13/2023 LIPID PANEL LDL cholesterol, calculated 94 mg/dL 0-130 NIH ANUPAM NSUS REPOR T RECOM MENDA TIONS FOR LDL: ADULT CHILD LOW RISK <130 <110 (OPTI MAL LDL) <100 ----- BORDE RLINE : 130-1 59 ----- HIGH RISK: >160 >130 A TRIGL YCERI DE RESUL T >400 INVAL IDATE S THE CALCU LATIO N FOR LDL FRACT IONAT ION - THE LDL RESUL T WILL NOT BE REPOR KIMI. Not Available [facility] (Lab) [address] [place], [address], 06/13/2023 19:28:43 06/13/19 24 06/13/2023 COMPR EHENS STAR METAB OLIC PANEL sodium 140 mmol/ L 137-14 5 Not Available [facility] (Lab) [address] [place], [address], 06/13/2023 19:28:47 06/13/19 24 06/13/2023 COMPR EHENS STAR METAB OLIC PANEL potassium 4.2 mmol/ L 3.5-5. 1 Not Available [facility] (Lab) [address] [place], [address], 06/13/2023 19:28:47 06/13/19 24 06/13/2023 COMPR EHENS STAR METAB OLIC PANEL chloride 102 mmol/ L 98-107 Not Available [facility] (Lab) [address] [place], [address], 06/13/2023 19:28:47 06/13/19 24 06/13/2023 COMPR EHENS STAR METAB OLIC PANEL carbon dioxide 32 mmol/ L 22-30 high Not Available [facility] (Lab) [address] [place], [address], 06/13/2023 19:28:47 06/13/19 24 06/13/2023 COMPR EHENS STAR METAB OLIC PANEL anion gap 10.2 mmol/ L 14-22 low Not Available [facility] (Lab) [address] [place], [address], 06/13/2023 19:28:47 06/13/19 24 06/13/2023 COMPR EHENS STAR METAB OLIC PANEL glucose 82 mg/dL 70-99 Not Available [facility] (Lab) [address] [place], [address], 06/13/2023 19:28:47 06/13/19 24 06/13/2023 COMPR EHENS STAR METAB OLIC PANEL BUN 21 mg/dL 8-19 high Not Available [facility] (Lab) [address] [place], [address], 06/13/2023 19:28:47 06/13/19 24 06/13/2023 COMPR EHENS STAR METAB OLIC PANEL creatinine 0.75 mg/dL 0.66-1 .25 Not Available [facility] (Lab) [address] [place], [address], 06/13/2023 19:28:47 06/13/19 24 06/13/2023 COMPR EHENS STAR METAB OLIC PANEL GFR >60 Refer ence Range : [place] ge GFR Healt hy Adult : >60 mL/mi n/1.7 3 m2 Chron ic Kidne y Disea se: 15-60 mL/mi n/1.7 3 m2 Kidne y Failu re: <15/m L/min /1.73 m2 www.n iddk. nih.g ov The MDRD study equat ion has not been valid ated in child roseann <18 years of age; pregn ant women ; the elder ly >85 years of age; or in some racia l or ethni c subgr oups, such as Hispa nics. Outsi de the valid ated jay jay eters , estim ated GFR is less accur ate, requi ring clini carmella judgm ent on a case- by-ca se basis . Clini carmella inter preta tion for other races and ages must be made by the clini myles. The MDRD study equat ion has not been valid ated for the evalu ation of serum creat inine relat ed to nutri cyndi l statu s or medic ation usage . For perso ns <18 years of age, a pedia tric GFR calcu lator is avail able on the [facility] websi te: https ://ww w.kid yue.o rg/pr ofess ional s/kdo qi/gf r_cal culat or Not Available [facility] (Lab) [address] [place], [address], 06/13/2023 19:28:47 06/13/19 24 06/13/2023 COMPR EHENS STAR METAB OLIC PANEL alkaline phosphatase 100 U/L 38-126 Not Available [facility] (Lab) [address] [place], [address], 06/13/2023 19:28:47 06/13/19 24 06/13/2023 COMPR EHENS STAR METAB OLIC PANEL alanine aminotransfe rase 33 U/L 0-35 Not Available [facility] (Lab) [address] [place], [address], 06/13/2023 19:28:47 06/13/19 24 06/13/2023 COMPR EHENS STAR METAB OLIC PANEL aspartate aminotransfe rase 38 U/L 15-37 high Not Available [facility] (Lab) [address] [place], [address], 06/13/2023 19:28:47 06/13/19 24 06/13/2023 COMPR EHENS STAR METAB OLIC PANEL bilirubin, total 0.30 mg/dL 0.20-1 .30 Not Available [facility] (Lab) [address] [place], [address], 06/13/2023 19:28:47 06/13/19 24 06/13/2023 COMPR EHENS STAR METAB OLIC PANEL calcium 9.3 mg/dL 8.4-10 .2 Not Available [facility] (Lab) [address] [place], [address], 06/13/2023 19:28:47 06/13/19 24 06/13/2023 COMPR EHENS STAR METAB OLIC PANEL total protein 6.9 g/dL 6.3-8. 2 Not Available [facility] (Lab[facility] [address] [facility] [place], [address], 06/13/2023 19:28:47 06/13/19 24 06/13/2023 COMPR EHENS STAR METAB OLIC PANEL albumin 4.3 g/dL 3.0-4. 4 Not Available [facility] (Lab) [address] [place], [address], 06/13/2023 19:28:47 06/13/19 24 06/13/2023 COMPR EHENS STAR METAB OLIC PANEL globulin 2.6 g/dL 2.6-4. 2 Not Available [facility] (Lab) [address] [place], [address], 06/13/2023 19:28:47 06/13/19 24 06/13/2023 COMPR EHENS STAR METAB OLIC PANEL A/G ratio 1.7 ratio 1.0-2. 0 Not Available [facility] (Lab) [address] [place], [address], 06/13/2023 19:28:47 06/13/19 24 06/13/2023 T3 FREE free T3 3.2 pg/mL 2.77-5 .27 Not Available [facility] (Lab) [address] [place], [address], 06/13/2023 19:48:14 06/13/19 24 06/13/2023 TSH thyroid-stim ulating hormone 4.820 uIU/m L 0.465- 4.680 high Not Available [facility] (Lab) [address] [place], [address], 06/13/2023 20:03:43 06/13/19 24 06/13/2023 T4 FREE free T4 1.03 NG/dL 0.78-2 .19 Not Available [facility] (Lab) [address] [place], [address], 06/13/2023 20:21:37 10/10/19 24 10/10/2023 CBC/C OMPLE TE BLD COUNT W/DIF F white blood cells 3.5 x10'3 /uL 4.2-10 .8 low Not Available [facility] (Lab) [address] [place], [address], 10/10/2023 12:38:35 10/10/19 24 10/10/2023 CBC/C OMPLE TE BLD COUNT W/DIF F red blood cells 5.10 x10'6 /uL 3.80-5 .20 Not Available [facility] (Lab) [address] [place], [address], 10/10/2023 12:38:35 10/10/19 24 10/10/2023 CBC/C OMPLE TE BLD COUNT W/DIF F hemoglobin 15.3 g/dL 12.0-1 5.6 Not Available [facility] (Lab) [address] [place], [address], 10/10/2023 12:38:35 10/10/19 24 10/10/2023 CBC/C OMPLE TE BLD COUNT W/DIF F hematocrit 47.3 % 35.7-4 5.7 high Not Available [facility] (Lab) [address] [place], [address], 10/10/2023 12:38:35 10/10/19 24 10/10/2023 CBC/C OMPLE TE BLD COUNT W/DIF F mean red cell volume 92.7 fL 82.0-9 9.0 Not Available [facility] (Lab) [address] [place], [address], 10/10/2023 12:38:35 10/10/19 24 10/10/2023 CBC/C OMPLE TE BLD COUNT W/DIF F mean red cell hemoglobin 30.0 pg 27.0-3 3.0 Not Available [facility] (Lab) [address] [place], [address], 10/10/2023 12:38:35 10/10/19 24 10/10/2023 CBC/C OMPLE TE BLD COUNT W/DIF F mean RBC HGB concentratio n 32.3 g/dL 31.0-3 6.0 Not Available [facility] (Lab) [address] [place], [address], 10/10/2023 12:38:35 10/10/19 24 10/10/2023 CBC/C OMPLE TE BLD COUNT W/DIF F red cell distribution width 13.2 % 11.8-1 5.5 Not Available [facility] (Lab) [address] [place], [address], 10/10/2023 12:38:35 10/10/19 24 10/10/2023 CBC/C OMPLE TE BLD COUNT W/DIF F platelets 198 x10'3 /uL 150-40 0 Not Available [facility] (Lab) [address] [place], [address], 10/10/2023 12:38:35 10/10/19 24 10/10/2023 CBC/C OMPLE TE BLD COUNT W/DIF F mean platelet volume 11.3 fL 9.0-12 .4 Not Available [facility] (Lab) [address] [place], [address], 10/10/2023 12:38:35 10/10/19 24 10/10/2023 CBC/C OMPLE TE BLD COUNT W/DIF F neutrophils 48.7 % 39.0-7 2.0 Not Available [facility] (Lab) [address] [place], [address], 10/10/2023 12:38:35 10/10/19 24 10/10/2023 CBC/C OMPLE TE BLD COUNT W/DIF F lymphocytes 32.5 % 16.0-4 7.0 Not Available [facility] (Lab) [address] [place], [address], 10/10/2023 12:38:35 10/10/19 24 10/10/2023 CBC/C OMPLE TE BLD COUNT W/DIF F monocytes 15.1 % 5.0-12 .0 high Not Available [facility] (Lab) [address] [place], [address], 10/10/2023 12:38:35 10/10/19 24 10/10/2023 CBC/C OMPLE TE BLD COUNT W/DIF F eosinophils 2.3 % 1.0-7. 0 Not Available [facility] (Lab) [address] [place], [address], 10/10/2023 12:38:35 10/10/19 24 10/10/2023 CBC/C OMPLE TE BLD COUNT W/DIF F basophils 1.4 % 0.0-2. 0 Not Available [facility] (Lab) [address] [place], [address], 10/10/2023 12:38:35 10/10/19 24 10/10/2023 CBC/C OMPLE TE BLD COUNT W/DIF F immature granulocytes 0.0 % 0.00-0 .50 Not Available [facility] (Lab) [address] [place], [address], 10/10/2023 12:38:35 10/10/19 24 10/10/2023 CBC/C OMPLE TE BLD COUNT W/DIF F neutrophils, absolute count 1.71 x10'3 /uL 1.5-8. 0 Not Available [facility] (Lab) [address] [place], [address], 10/10/2023 12:38:35 10/10/19 24 10/10/2023 CBC/C OMPLE TE BLD COUNT W/DIF F lymphocytes, absolute count 1.14 x10'3 /uL 1.07-3 .43 Not Available [facility] (Lab) [address] [place], [address], 10/10/2023 12:38:35 10/10/19 24 10/10/2023 CBC/C OMPLE TE BLD COUNT W/DIF F monocytes, absolute count 0.53 x10'3 /uL 0.29-0 .99 Not Available [facility] (Lab) [address] [place], [address], 10/10/2023 12:38:35 10/10/19 24 10/10/2023 CBC/C OMPLE TE BLD COUNT W/DIF F eosinophils, absolute count 0.08 x10'3 /uL 0.02-0 .53 Not Available [facility] (Lab) [address] [place], [address], 10/10/2023 12:38:35 10/10/19 24 10/10/2023 CBC/C OMPLE TE BLD COUNT W/DIF F basophils, absolute count 0.05 x10'3 /uL 0.01-0 .08 Not Available [facility] (Lab) [address] [place], [address], 10/10/2023 12:38:35 10/10/19 24 10/10/2023 CBC/C OMPLE TE BLD COUNT W/DIF F immature granulocytes ,absolute 0.00 x10'3 /uL 0.00-0 .05 Not Available [facility] (Lab) [address] [place], [address], 10/10/2023 12:38:35 10/10/19 24 10/10/2023 CBC/C OMPLE TE BLD COUNT W/DIF F nucleated red blood cells 0.0 % -0 Not Available [facility] (Lab) [address] [place], [address], 10/10/2023 12:38:35 10/10/19 24 10/10/2023 CBC/C OMPLE TE BLD COUNT W/DIF F NRBC# 0.00 x10'3 /uL Not Available [facility] (Lab) [address] [place], [address], 10/10/2023 12:38:35 10/10/19 24 10/10/2023 COMPR EHENS STAR METAB OLIC PANEL sodium 139 mmol/ L 137-14 5 Not Available [facility] (Lab) [address] [place], [address], 10/10/2023 17:48:37 10/10/19 24 10/10/2023 COMPR EHENS STAR METAB OLIC PANEL potassium 4.0 mmol/ L 3.5-5. 1 Not Available [facility] (Lab) [address] [place], [address], 10/10/2023 17:48:37 10/10/19 24 10/10/2023 COMPR EHENS STAR METAB OLIC PANEL chloride 104 mmol/ L 98-107 Not Available [facility] (Lab) [address] [place], [address], 10/10/2023 17:48:37 10/10/19 24 10/10/2023 COMPR EHENS STAR METAB OLIC PANEL carbon dioxide 29 mmol/ L 22-30 Not Available [facility] (Lab) [address] [place], [address], 10/10/2023 17:48:37 10/10/19 24 10/10/2023 COMPR EHENS STAR METAB OLIC PANEL anion gap 10.0 mmol/ L 14-22 low Not Available [facility] (Lab) [address] [place], [address], 10/10/2023 17:48:37 10/10/19 24 10/10/2023 COMPR EHENS STAR METAB OLIC PANEL glucose 76 mg/dL 70-99 Not Available [facility] (Lab) [address] [place], [address], 10/10/2023 17:48:37 10/10/19 24 10/10/2023 COMPR EHENS STAR METAB OLIC PANEL BUN 16 mg/dL 8-19 Not Available [facility] (Lab) [address] [place], [address], 10/10/2023 17:48:37 10/10/19 24 10/10/2023 COMPR EHENS STAR METAB OLIC PANEL creatinine 0.73 mg/dL 0.66-1 .25 Not Available [facility] (Lab) [address] [place], [address], 10/10/2023 17:48:37 10/10/19 24 10/10/2023 COMPR EHENS STAR METAB OLIC PANEL GFR >60 Refer ence Range : [place] GFR Healt hy Adult : >60 mL/mi n/1.7 3 m2 Chron ic Kidne y Disea se: 15-60 mL/mi n/1.7 3 m2 Kidne y Failu re: <15/m L/min /1.73 m2 www.n iddk. nih.g ov The MDRD study equat ion has not been valid ated in child roseann <18 years of age; pregn ant women ; the elder ly >85 years of age; or in some racia l or ethni c subgr oups, such as Hispa nics. Outsi de the valid ated jay jay eters , estim ated GFR is less accur ate, requi ring clini carmella judgm ent on a case- by-ca se basis . Clini carmella inter preta tion for other races and ages must be made by the clini myles. The MDRD study equat ion has not been valid ated for the evalu ation of serum creat inine relat ed to nutri cyndi l statu s or medic ation usage . For perso ns <18 years of age, a pedia tric GFR calcu lator is avail able on the [facility] websi te: https ://ww w.kid yue.o rg/pr ofess ional s/kdo qi/gf r_cal culat or Not Available [facility] (Lab) [address] [place], [address], 10/10/2023 17:48:37 10/10/19 24 10/10/2023 COMPR EHENS STAR METAB OLIC PANEL alkaline phosphatase 96 U/L 38-126 Not Available [facility] (Lab) [address] [place], [address], 10/10/2023 17:48:37 10/10/19 24 10/10/2023 COMPR EHENS STAR METAB OLIC PANEL alanine aminotransfe rase 30 U/L 0-35 Not Available [facility] (Lab) [address] [place], [address], 10/10/2023 17:48:37 10/10/19 24 10/10/2023 COMPR EHENS STAR METAB OLIC PANEL aspartate aminotransfe rase 39 U/L 15-37 high Not Available [facility] (Lab) [address] [place], [address], 10/10/2023 17:48:37 10/10/19 24 10/10/2023 COMPR EHENS STAR METAB OLIC PANEL bilirubin, total 0.60 mg/dL 0.20-1 .30 Not Available [facility] (Lab) [address] [place], [address], 10/10/2023 17:48:37 10/10/19 24 10/10/2023 COMPR EHENS STAR METAB OLIC PANEL calcium 9.4 mg/dL 8.4-10 .2 Not Available [facility] (Lab) [address] [place], [address], 10/10/2023 17:48:37 10/10/19 24 10/10/2023 COMPR EHENS STAR METAB OLIC PANEL total protein 6.7 g/dL 6.3-8. 2 Not Available [facility] (Lab) [address] [place], [address], 10/10/2023 17:48:37 10/10/19 24 10/10/2023 COMPR EHENS STAR METAB OLIC PANEL albumin 4.3 g/dL 3.0-4. 4 Not Available [facility] (Lab) [address] [place], [address], 10/10/2023 17:48:37 10/10/19 24 10/10/2023 COMPR EHENS STAR METAB OLIC PANEL globulin 2.4 g/dL 2.6-4. 2 low Not Available [facility] (Lab) [address] [place], [address], 10/10/2023 17:48:37 10/10/19 24 10/10/2023 COMPR EHENS STAR METAB OLIC PANEL A/G ratio 1.8 ratio 1.0-2. 0 Not Available [facility] (Lab) [address] [place], [address], 10/10/2023 17:48:37 10/10/19 24 10/10/2023 T4 FREE free T4 1.00 NG/dL 0.78-2 .19 Not Available [facility] (Lab) [address] [place], [address], 10/10/2023 17:51:25 10/10/19 24 10/10/2023 TSH thyroid-stim ulating hormone 3.440 uIU/m L 0.465- 4.680 Not Available [facility] (Lab) [address] [place], [address], 10/10/2023 17:53:54 10/10/19 24 10/10/2023 T3 TOTAL T3, total 1.290 NG/mL 0.970- 1.690 Not Available [facility] (Lab) [address] [place], [address], 10/10/2023 17:53:59 03/17/20 22 03/16/2022 MAMMO , bilat eral and US, breas t, bilat eral No observ ation record ed. [id number] [facility] [address], [place], [address], 07/20/2022 05:04:45 03/17/20 22 03/16/2022 MAMMO , diagn ostic , unila teral No observ ation record ed. [id number] [facility] [address], [place], [address], 07/20/2022 05:04:45 09/23/19 23 09/22/2022 MAMMO , scree nighat, digit al, bilat eral No observ ation record ed. [facility] [address], [place], [address], 12/07/2022 10:03:40 09/23/19 23 09/22/2022 MAMMO , scree nighat, digit al, bilat eral No observ ation record ed. [facility] [address], [place], [address], 12/07/2022 10:02:45 10/22/19 23 10/21/2022 MAMMO , scree nighat, digit al, bilat eral No observ ation record ed. [facility] [address], [place], [address], 12/07/2022 09:59:43 10/22/19 23 10/21/2022 MAMMO , scree nighat, digit al, bilat eral No observ ation record ed. [facility] [address], [place], [address], 12/07/2022 09:59:36 12/23/19 23 audio gram + tympa nogra m No observ ation record ed. [email or web address] Not Available 2022 12:48:53 06/17/19 24 US, thyro id [facility] [place] [address] [place] [address] Patien t Name: DARIUSZ KEMP [facility] ion #: [id number] Sex: F : 1955 4 Dictat ed By: Amelia Cruz Attend ing Physic reji: NOELLE DE LA ROSA Orderi Physic reji: NOELLE DE LA ROSA Exam Date: 2023 12:00 PM Exam Name: US NECK/H EAD SOFT TISSUE Admitt ing Diagno sis(es ): ULTRAS OUND SOFT TISSUE [facility] INDICA TION: Anteri or neck pain histor y of thyroi d nodule TECHNI QUE: Multip le real time sonogr aphic images of the thyroi d were obtain ed. COMPAR LORA: None FINDIN GS: The right thyroi d gland measur es 4.5 x 2.2 x 1.6 cm. The left thyroi d gland measur es approx imatel y 5.5 x 2.8 x 2.3 cm. The isthmu s measur es 0.4 cm. The thyroi d gland appear s hetero geneou s. There is a TI-RAD S 3 isoech oic 1.5 cm nodule in the left inferi or thyroi d gland. IMPRES EDGAR: 1. Hetero geneou s thyroi d gland which can be seen in the settin g of thyroi latricia. 2. A 1.5 cm TI-RAD S 3 in the left inferi or thyroi d gland. Recomm end follow -up in one year. Americ klaus burks of Radiol ogy TI-RAD S Catego ralf and Recomm endati ons (2017) : TR1: 0 points , Benign , No FNA TR2: 2 points , Not suspic ious, No FNA TR3: 3 points , Mildly suspic ious, FNA if > or = 2.5 cm, Follow if > or = 1.5 cm Page 1 [facility] [address] [place] [address] Patien t Name: DARIUSZ KEMP ion #: [id number] Sex: F : 1955 4 Dictat ed By: Amelia Cruz Attend ing Physic reji: CINDY CURRY [facility] Physic reji: NOELLE DE LA ROSA Exam Date: 2023 12:00 PM Exam Name: US NECK/H EAD SOFT TISSUE Admitt ing Diagno sis(es ): TR4: 4-6 points , Modera tely Suspic ious, FNA if > or = 1.5 cm, Follow if > or = 1.0 cm TR5: 7+ points , Highly Suspic ious, FNA if > or = 1.0 cm, Follow if > or = 0.5 cm Follow -up ultras ound guidel emir: TR5: yearly for 5 years, if no growth or change in TI-RAD S level TR4: at 1, 2, 3 and 5 years, if no growth or change in TI-RAD S level TR3: at 1, 3 and 5 years, if no growth or change in TI-RAD S level If increa sed but below thresh old for FNA, repeat in one year. Source : ACR Thyroi d Imagin g, Report ing and Data System (TI-RA DS): White Paper of the ACR TI-RAD S Commit jasmine. Luis A et al., J Am Fabi Radiol 2017;1 4:587- 595. Electr onical ly Signed by: Amelia Cruz at 2023 07:02: 08 AM Page 2 [facility] ([facility] [address] [place], [address], 06/21/2023 11:10:32 Result Notes None recorded. Problems Name Problem SNOMED Code Status Onset Date Resolution Date Notes Provider Name and Address Organization Details Recorded Time Bilateral hearing loss 98540446 Active 2022 Not Available [facility] 4 06:06:45 Sensorineu ral hearing loss 25774195 Active 2022 Not Available [facility] 4 06:06:45 Neck pain 24016700 Active 2023 Not Available [facility] 4 06:06:45 Trochanter ic bursitis of right hip 2847058614904 00 Active 2023 Not Available [facility] 4 06:06:45 Trochanter ic bursitis of left hip 0741359500789 03 Active 2023 Not Available [facility] 4 06:06:45 Osteopenia 598437358 Active Not Available [facility] 4 06:06:45 Hypothyroi dism 89082550 Active Not Available [facility] 4 06:06:45 Hyperlipid emia 71194377 Active 2016 Not Available [facility] 4 06:06:45 COVID-19 022426777 Active 2021 Not Available [facility] 4 06:06:45 Problem Notes None recorded. Procedures Surgical History Date Name Laterality Status Provider Name and Address Organization Details Recorded Time 12/07/19 23 Medicare Wellness CPT Code, subsequent completed Stefania Hearn RN [place] - [place] [facility] [employer] 12/06/2022 14:31:06 07/13/19 21 Most Recent Bone Density completed Not Available [facility] 07/20/2022 04:44:17 12/04/19 20 Date of Last Colonoscopy completed Not Available [facility] 07/20/2022 04:44:17 11/28/19 20 Colonoscopy completed Not Available [facility] 07/21/19 04:44:20 Shoulder completed Not Available [facility] 04:44:20 Cataract Surgery completed Not Available [facility] 07/20/2022 04:44:20 Remove tonsils and adenoids completed Shanice Goodman RN [place] [facility] [employer] 12/22/2022 10:36:52 Imaging Results Imaging Date Name Status LastModified by [facility] Details LastModified Time 03/16/2022 MAMMO, bilateral and US, breast, bilateral completed [id number] [facility] [address], [place], [address], 07/20/2022 05:04:45 03/16/2022 MAMMO, diagnostic, unilateral completed [id number] [facility] [address], [place], [address], 07/20/2022 05:04:45 09/22/2022 MAMMO, screening, digital, bilateral [email or web address] [address], [place], [address], 12/07/2022 10:03:40 09/22/2022 MAMMO, screening, digital, [facility] [address], [place], [address], 12/07/2022 10:02:45 10/21/2022 MAMMO, screening, digital, bilateral [facility] [address], [place], [address], 12/07/2022 09:59:43 10/21/2022 MAMMO, screening, digital, bilateral [facility] [address], [place], [address], 12/07/2022 09:59:36 12/22/2022 audiogram + tympanogram completed [email or web address] Information not available 12/22/2022 12:48:53 06/17/2023 US, thyroid completed [facility] [address] [place], [address], 06/21/2023 11:10:32 Procedure Notes None recorded. Medical Equipment None Reported. Allergies Allergen ID Allergen Name Allergen Category Reaction Reaction Severity Criticality Documentation Date Start Date Code Code System Note Provider Name and Address Organization Details Recorded Time 8215 Keflex medicatio n Not available Not available Not available 07/20/202237862 7 RxNorm Not Available [facility] 3 05:04:19 Medications Name Sig Start Date Stop Date Status Note LastModified by Organization Details LastModified Time desonide 0.05 % topical cream 10/23 completed Not Available Not Available Not Available nabumetone 750 mg tablet 09/28 completed Not Available Not Available Not Available triamcinolo ne acetonide 0.5 % topical cream 10/04 completed Not Available Not Available Not Available atorvastati n 10 mg tablet TAKE 1 TABLET BY MOUTH EVERY DAY active Not Available Not Available No t Available prednisone 20 mg tablet 10/23 completed Not Available Not Available Not Available Gentak 0.3 % (3 mg/gram) eye ointment 09/29 completed Not Available Not Available Not Available prednisolon e acetate 1 % eye drops,suspe nsion SHAKE LIQUID AND INSTILL 1 DROP IN RIGHT EYE FOUR TIMES DAILY active Not Available Not Available No t Available ciprofloxac in 0.3 % eye drops active Not Available Not Available No t Available Kenalog 10 mg/mL suspension for injection In office injection administe red by the provider 04/23 completed [facility]: 0003- 0494- 20 Not Available Not Available Not Available benzonatate 100 mg capsule 10/23 completed Not Available Not Available Not Available levothyroxi ne 50 mcg tablet TAKE 1 TABLET BY MOUTH EVERY DAY 2022 active Not Available Not Available Not Avai lable diclofenac 0.1 % eye drops active Not Available Not Available Not Available tacrolimus 0.03 % topical ointment APPLY THIN LAYER TOPICALLY TO THE AFFECTED AREA 1 TO 3 TIMES EVERY WEEK active Not Available Not Available No t Available nystatin-tr iamcinolone 100,000 unit/g-0.1 % topical cream 09/28 completed Not Available Not Available Not Available omeprazole 20 mg capsule,del ayed release 03/31 completed Not Available Not Available Not Available clobetasol 0.05 % topical ointment APPLY A THIN LAYER EXTERNALL Y TO THE AFFECTED AREA 1 TO 2 TIMES PER DAY NEEDED FOR FLARE UPS active Not Available Not Available No t Available estradiol 0.01% (0.1 mg/gram) vaginal cream 10/04 completed Not Available Not Available Not Available doxycycline hyclate 100 mg tablet Take 1 tablet twice a day by oral route for 7 days. active Not Available Not Available No t Available ezetimibe 10 mg tablet TAKE 1 TABLET BY MOUTH EVERY DAY active Not Available Not Available No t Available rosuvastati n 10 mg tablet Take 1 tablet every day by oral route. active Not Available Not Available No t Available Vitamin D3 2015 active Not Available Not Available Not Avai lable lidocaine (PF) 10 mg/mL (1 %) injection solution In office injection administe red by the provider 04/23 completed [facility]: 0409- 4276- 17 Not Available Not Available Not Available Suprep Bowel Prep Kit 17.5 gram-3.13 gram-1.6 gram oral solution MIX AND DRINK UTD active Not Available Not Available No t Available Pazeo 0.7 % eye drops 10/23 completed Not Available Not Available Not Available Fluvirin 0245-2979 45 mcg (15 mcg x 3)/0.5 mL intramuscul ar suspension ADM 0.5ML IM UTD 09/29 completed Not Available Not Available Not Available Fluarix Quad (PF) 60 mcg (15 mcg x 4)/0.5 mL IM syringe active Not Available Not Available N ot Available Imvexxy 4 mcg vaginal insert Insert 1 vaginal insert twice a week by vaginal route. 2021 active Not Available Not Available Not Avai lable Afluria Quad (PF) 60 mcg (15 mcg x 4)/0.5 mL IM syringe active Not Available Not Available N ot Available Flucelvax Quad (PF) 60 mcg (15 mcg x 4)/0.5 mL IM syringe active Not Available Not Available N ot Available Fluzone High-Dose Quad (PF) 240 mcg/0.7 mL IM syringe 04/23 completed Not Available Not Available Not Available Paxlovid 300 mg (150 mg x 2)-100 mg tablets in a dose pack Take 3 tablets twice a day by oral route for 5 days. active Not Available Not Available No t Available Vitals Date Recorded Body mass index (BMI) Body height Heart rate Body temperature Body weight Systolic blood pressure Diastolic blood pressure Provider Name and Address Organization Details Last Updated DateTime 2 22.1 kg/m2 166.37 cm 68 /min 96.6 [degF] 25523.9 7 g 140 mm[Hg] 80 mm[Hg] Not Available [facility] 3 04:50:37 Date Recorded Body mass index (BMI) Body height Heart rate Body temperature Body weight Systolic blood pressure Diastolic blood pressure Provider Name and Address Organization Details Last Updated DateTime 2 22.3 kg/m2 166.37 cm 72 /min 98.2 [degF] 32916.5 6 g 124 mm[Hg] 78 mm[Hg] Not Available [facility] 3 04:50:37 Date Recorded Body height Body mass index (BMI) Body weight Body temperature Heart rate Oxygen saturation Oxygen saturation in Arterial blood by Pulse oximetry Systolic blood pressure Diastolic blood pressure Provider Name and Address Organization Details Last Updated DateTime 3 166.37 cm 22.3 kg/m2 77533.5 6 g 97.8 [degF] 68 /min 98 % 98 % 140 mm[Hg] 80 mm[Hg] Bindu Navarro MA [facility] [employer] 3 14:20:00 Date Recorded Body height Body mass index (BMI) Body weight Body temperature Provider Name and Address Organization Details Last Updated DateTime 12/22/2022 166.37 cm 22.2 kg/m2 08920.13 g 97.7 [degF] Shanice Goodman RN [facility] [employer] 12/22/2022 10:35:17 Date Recorded Body height Body mass index (BMI) Body weight Body temperature Heart rate Oxygen saturation Oxygen saturation in Arterial blood by Pulse oximetry Systolic blood pressure Diastolic blood pressure Provider Name and Address Organization Details Last Updated DateTime 4 166.37 cm 22.5 kg/m2 37784.1 5 g 97.6 [degF] 77 /min 98 % 98 % 151 mm[Hg] 74 mm[Hg] Leny Patel MA [facility] 4 11:01:20 Social History Question Answer Notes LastModified by Organization Details LastModified Time Tobacco Smoking Status Never Smoker DADA Hartmann [facility] [employer] 12/22/2022 10:10:50 Do You Have An Advance Directive? Yes [id number] Information not available 07/20/2022 What Is Your Level Of Alcohol Consumption? None [id number] Information not available 07/20/2022 Are You Blind Or Do You Have Difficulty Seeing? No Information not available 12/22/2022 What Is Your Level Of Caffeine Consumption? Moderate [id number] Information not available 07/20/2022 How Much Tobacco Do You Chew? None [id number] Information not available 07/20/2022 In The 14 Days Before Symptom Onset, Have You Had Close Contact With A Laboratory-conf irmed COVID-19 While That Case Was Ill? No Information not available 12/22/2022 In The 14 Days Before Symptom Onset, Have You Had Close Contact With A Person Who Is Under Investigation For COVID-19 While That Person Was Ill? No Information not available 12/22/2022 Are You Deaf Or Do You Have Serious Difficulty Hearing? No Information not available 12/22/2022 What Type Of Diet Are You Following? REGULAR [id number] Information not available 07/20/2022 Which Illicit Or Recreational Drugs Have You Used? None Information not available 12/22/2022 Do You Or Have You Ever Used E-cigarettes Or Vape? Never Used Electronic Cigarettes Information not available 12/22/2022 What Is The Highest Grade Or Level Of School You Have Completed Or The Highest Degree You Have Received? [id number] Information not available 12/22/2022 What Is Your Occupation? Retired Information not available 12/22/2022 Have There Been Any Changes To Your Family Or Social Situation? No Information not available 12/22/2022 Are There Any Guns Present In Your Home? No Information not available 12/22/2022 Do You Use Insect Repellent Routinely? No Information not available 12/22/2022 Where Do You Live? SingleLevelHouse With Basement Information not available 12/22/2022 Presence Of Domestic Violence No Information not available 12/06/2022 Guns Present In The Home? No Information not available 12/06/2022 Are You Able To Care For Yourself? Yes Information not available 12/06/2022 Are You Blind Or Do Yo Have Difficulty Seeing? No Information not available 12/06/2022 Are You Deaf Or Do You Have Serious Difficulty Hearing? No Information not available 12/06/2022 General Stress Level? Low Information not available 12/06/2022 Do You Have A Medical Power Of Associate Genetics Professor? Yes Information not available 12/22/2022 What Was The Date Of Your Most Recent Tobacco Screening? 12/06/2022 Information not available 12/22/2022 Do You Have Any Pets? Yes Information not available 12/22/2022 What Is Your Relationship Status? [id number] Information not available 07/20/2022 Do You Use Your Seat Belt Or Car Seat Routinely? Yes Information not available 12/22/2022 Do You Have Smoke And Carbon Monoxide Detectors In Your Home? Yes Information not available 12/22/2022 Are You Passively Exposed To Smoke? No Information not available 12/22/2022 Do You Or Have You Ever Used Smokeless Tobacco? Never Used Smokeless Tobacco [id number] Information not available 07/20/2022 Are There Any Smokers In Your House? No Information not available 12/22/2022 How Much Tobacco Do You Smoke? No [id number] Information not available 07/20/2022 What Types Of Sporting Activities Do You Participate In? None Information not available 12/22/2022 Do You Feel Stressed (tense, Restless, Nervous, Or Anxious, Or Unable To Sleep At Night)? [id number] Information not available 12/22/2022 Do You Use Any Illicit Or Recreational Drugs? No Information not available 12/22/2022 Do You Use Sunscreen Routinely? No Information not available 12/22/2022 Has Tobacco Cessation Counseling Been Provided? No Not Neeeded-ne paul Smoked Information not available 12/22/2022 How Many Years Have You Smoked Tobacco? 0 Information not available 12/22/2022 Have You Recently Traveled Abroad? No Information not available 12/22/2022 Do You Have Any Dietary Restrictions? No Information not available 12/22/2022 Do You Or Have You Ever Used Any Other Forms Of Tobacco Or Nicotine? No Information not available 12/22/2022 Sex: Female Functional Status Question Answer Note LastModified by Organizat ion Details LastModified Time Do you have difficulty walking or climbing stairs? No Information not available 12/22/2022 Do you have transportation difficulties? No Information not available 12/22/2022 Are you able to walk? YESWOREST Information not available 12/22/2022 Do you have difficulty doing errands alone? No Information not available 12/22/2022 Are you able to care for yourself? Yes Information n ot available 12/22/2022 Do you have difficulty dressing or bathing? No Information not available 12/22/2022 What is your exercise level? Moderate [id number] Information not available 07/20/2022 Mental Status Question Answer Note LastModified by Organization D etails LastModified Time Do you have difficulty concentrating, remembering or making decisions? No Information no t available 12/22/2022 Family History Relationship Description Onset Age of this Age Resolved Age Notes LastModified by Organization Details LastModified Time Father Ulcer akovach Not available 10:10:48 Father Family history of malignant neoplasm akovach Not available 2022 10:10:48 Mother Hypertensive disorder [id number] Not available 07/20/2022 04:44:28 Notes:NO ENT Medical History Condition Response NERVE DISEASE N BLINDNESS N RHEUMATIC FEVER N KIDNEY STONES N BLADDER PROBLEMS N MRSA N OTHER # 1 Y POLIO N LUNG DISEASE/DISORDER N RADIATION / CHEMOTHERAPY N COPD N Other # 2 N BLOOD DISEASES N EAR OR HEARING PROBLEMS N MUMPS N BOWEL PROBLEMS N DEPRESSION (INCLUDING POST ) N STROKE/TIA N ULCERS N BENIGN PROSTATIC HYPERPLASIA N MEASLES N MYOCARDIAL INFARCTION N OBESITY N GERD/NAUSEA N ANEURYSM N URINARY/BLADDER/KIDNEY PROBLEMS N CORONARY ARTERY DISEASE (CAD) N ADDICTION CONCERNS N ENDOMETRIOSIS N Impotence N USE OF BLOOD THINNERS N SKIN PROBLEMS N GASTROINTESTINAL DISORDER N PERIPHERAL VASCULAR DISEASE N MUSCLE,JOINT OR BONE PROBLEMS N GASTROINTESTINAL BLEEDING N BLOOD CLOTS N ASTHMA N CATARACTS N ERECTILE DYSFUNCTION N VARICOSITIES N GI PROBLEMS N Low Testosterone N INFERTILITY N AIDS/HIV N CHEMOTHERAPY / RADIATION N LIVER DISEASE N MALE HYPOGONADISM N HYPERTENSION N Deficiency N TOURETTE'S N ANXIETY DISORDER N BLOOD TRANSFUSION N ANEMIA/BLOOD DISORDER N CHRONIC EAR INFECTIONS N BRONCHITIS N TUBERCULOSIS N GLAUCOMA N FOOT PROBLEM N DIVERTICULITIS N SLEEP APNEA N CHICKENPOX N INFECTIOUS DISEASE N HEART ARRHYTHMIA N PROSTATE N INSOMNIA N HIGH CHOLESTEROL / HYPERLIPIDEMIA Y HYPERTHYROIDISM N EYE PROBLEMS N EDEMA N CHRONIC PAIN SYNDROME N HYPOTHYROIDISM Y CAROTID BLOCKAGE N CONSTIPATION N BACK / NECK PROBLEMS N ATHEROSCLEROSIS N BREAST PROBLEMS N DIALYSIS N ECZEMA N OSTEOPOROSIS N ARTHRITIS N APPENDICITIS N DIABETES, TYPE N BAD TEETH N ENT N HEARTBURN / REFLUX N AUTISM SPECTRUM DISORDER (ASD) N HEPATITIS / LIVER DISEASE N GOUT N SLEEP DISORDER N ALZHEIMER'S DISEASE N Brain Problems N HERPES N DEMENTIA N HEADACHES/MIGRAINES N SEIZURES/EPILEPSY N VASCULAR DISEASE N PACEMAKER N Blood Disorder N DIZZINESS N HEART DISEASE/HEART PROBLEMS N KIDNEY DISEASE N MULTIPLE SCLEROSIS N CARDIAC ARRHYTHMIA N CANCER: SPECIFY N ATRIAL FIBRILLATION N Gall Stones N PULMONARY EMBOLISM N AUTOIMMUNE DISEASE N Gynecological History Statement/Question Response Date of Last Mammogram 07/13/2020 Date of Last Colonoscopy 12/04/2019 Most Recent Bone Density 07/13/2020 Obstetrics History GPAL:G 0 P 0 0 0 0 Immunizations Vaccine Type Date Status Note Provider Nam e and Address Organization Details Recorded Time Respiratory syncytial virus (RSV) vaccine, unspecified 3 completed Not Available [facility] 06/30/2023 06:06:46 COVID-19, mRNA, LNP-S, PF, 100 mcg/0.5mL dose or 50 mcg/0.25mL dose 1 completed Not Available [facility] 06/30/2023 06:06:46 Influenza, high-dose, quadrivalent, PF 1 completed Not Available [facility] 06/30/2023 06:06:46 COVID-19, mRNA, LNP-S, PF, 100 mcg/0.5mL dose or 50 mcg/0.25mL dose 1 completed Not Available [facility] 06/30/2023 06:06:46 COVID-19, mRNA, LNP-S, PF, 100 mcg/0.5mL dose or 50 mcg/0.25mL dose 1 completed Not Available [facility] 06/30/2023 06:06:46 Influenza, high-dose, quadrivalent, PF 0 completed Not Available [facility] 06/30/2023 06:06:46 Influenza, split virus, quadrivalent, preservative 9 completed Not Available [facility] 06/30/2023 06:06:46 Influenza, split virus, quadrivalent, preservative 8 completed Not Available [facility] 06/30/2023 06:06:46 Influenza, split virus, quadrivalent, preservative 7 completed Not Available [facility] 06/30/2023 06:06:46 Influenza, split virus, quadrivalent, preservative 6 completed Not Available [facility] 06/30/2023 06:06:46 COVID-19, mRNA, LNP-S, PF, 30 mcg/0.3 mL dose 2 completed Not Available [facility] 06/30/2023 06:06:46 Influenza, high-dose, quadrivalent, PF 2 completed Not Available [facility] 06/30/2023 06:06:46 Tdap 1 completed Not Available [facility] 06/30/2023 06:06:46 pneumococcal polysaccharide PPV23 9 completed Not Available [facility] 06/30/2023 06:06:46 Pneumococcal conjugate PCV 13 1 completed Not Available [facility] 06/30/2023 06:06:46 Past Encounters Encounter ID Performer Location Encounter Start Date Encounter Closed Date Diagnosis/Indication Diagnosis SNOMED-CT Code Diagnosis ICD10 Code Diagnosis Note [id number] [facility] [place] [address] [place] [address] [place] [address] 10/22/2020 00:00:00 10/22/2020 21:19:33 [id number] [facility] [place] [address] [place] [address] [place] [address] 05/06/2021 00:00:00 05/06/2021 19:38:00 [id number] [facility] Internal [facility] [place] [address] [place] [address] [place] [address] 10/28/2021 00:00:00 11/22/2021 12:50:17 [id number] [facility] [place] [address] [place] [address] [place] [address] 04/21/2022 00:00:00 04/21/2022 21:45:15 [id number] Brando De La Rosa MD [facility] Internal [facility] [place] [address] [place] [address] [place] [address] 12/06/2022 14:12:39 12/06/2022 14:57:05 Adult health examination 107223507 Z00.00 Screening for disorder 547903226 Z13.9 Bilateral hearing loss 60137679 H91.93 Hyperlipidemia 95435416 E78.5 Hypothyroidism 15409430 E03.9 [id number] [facility] [address] [place] [address] 12/22/2022 09:57:09 12/22/2022 11:43:01 Sensorineural hearing loss 50242509 H90.5 [id number] Brando De La Rosa MD [facility] Internal [facility] [place] [address] [place] [address] 06/06/2023 10:41:09 06/06/2023 12:05:16 Hypothyroidism 93736213 E03.9 Hyperlipidemia 84232800 E78.5 Neck pain 27244299 M54.2 Long-term drug therapy 067555842 Z79.899 Trochanter ic bursitis of right hip [id number] 92928 M70.61 Health Concerns Section Related Observation LastModified by Organization Detai ls LastModified Time None Recorded Concern Status LastModified by Organization Details LastModified Time None Recorded Advance Directives Directive Y: Payers Encounter Date Sequence Insurance Name Policy Number Policy Venegas Covered Member ID Venegas Member ID Guarantor Name 12/06/2022 1 [employer] (MEDICARE REPLACEMENT PPO) [id number] 1 Dariusz [place]ax [place] [id number] D[place]z [place] 12/22/2022 1 [employer] (MEDICARE REPLACEMENT PPO) [id number] 1 Dariusz [place]omax [place] [id number] Dariusz [place]ax [place] 06/06/2023 1 [employer] (MEDICARE REPLACEMENT PPO) [id number] 1 Dariusz Lomax [place] [id number] Dariusz L[place]ax [place] Notes Date Note Type Note Provider Name and Address Organization Details Recorded Time 12/06/2022 text/html Chronic problems with the left ear. Dyslipidemia on follow low-fat diet. Hypothyroid heat or cold intolerance. Wellness concluded Brando De La Rosa MD [address], [place], [address], [employer] 12/09/2022 21:05:53 12/22/2022 text/html this patient has hearing loss and reports difficulty in crowded situations. She did have an audiogram which demonstrates mild bilateral sensorineural hearing loss. Her tympanograms were normal Oliver Burger MD [address], [place], [address], [employer] 12/22/2022 11:20:09 06/06/2023 text/html Trochanteric bur sitis worseHaving some vague discomfort in thyroid areaDyslipidemia trying to follow dietNo other complaints Brando De La Rosa MD [address], [place], [address], [employer] 06/06/2023 22:53:17 OBGyn Episode No OBEpisode recorded.
--- OUTSIDE RECORDS SUMMARY | 2024-06-13 05:30 | XMS_ITS | Patient Health Summary ---
Author Organization [facility] Address [address] [place] [address] Care Team Providers Care Chief Merchandising Officer Name Role Phone Unavailable Primary Care Provider Unavailabl e Note from [facility],non-owned Affiliates and Associated Physician Practices is amultiple site organization consisting of ambulatory clinics and hospital sitesin [place], [place], [place] and [place]. This disclosure is being madepursuant to the Care Everywhere program and may not contain all information available regarding this patient. Last updated 18.[facility] Social History Tobacco Use Types Packs/Day Years Used Date Smoking Tobacco: Never Assessed Sex and Gender Information Value Date Recorded Sex Assigned at Not on file Gender Identity Not on file Sexual Orientation Not on file
== END 2024-06-07 08:29 | disposition home or self-care (01) ==
LOC: ANHLAB 08:29
PROVIDERS: PCP Internal Medicine; Visit Provider Internal Medicine
DX: E03.9 Hypothyroidism, unspecified (principal); E78.5 Hyperlipidemia, unspecified
CPT/HCPCS: 36415; 80053; 80061; 84439; 84443; 84481

== ENCOUNTER 2024-08-07 13:15 | Outpatient (CLI) | payer MEDICARE, SELFPAY ==
--- NOTE | ~2024-08-07 | MR_ITS ---
MRI of the right knee Clinical history: Lateral meniscus tear Technique: Coronal proton density and proton density-weighted images, sagittal proton-density and T2 fat-sat images, and axial proton-density fat-saturated images were acquired. Findings: Anterior and posterior cruciate ligaments are intact. Medial collateral ligament and the la teral collateral ligament complex are intact. Popliteus tendon is intact. There is probable intrasubstance degenerative signal of the posterior root of the medial meniscus wit hout definite tear. No lateral meniscal tear seen. There is moderate to high-grade chondromalacia at the inferior femoral trochlea centrally. Remaining articular cartilage is well preserved. There is cystic enthesopathic change near the posterior crucia te ligament insertion on the proximal tibia. Extensor mechanism is intact. No significant joint effusion or Paul's cyst. 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 No definite meniscal tear. Probable intrasubstance degenerative signal at the posterior root of the m edial meniscus. Reviewed, dictated and finalized at location M. 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 No definite meniscal tear. Probable intrasubstance degenerative signal at the p osterior root of the medial meniscus.
== END 2024-08-07 13:16 | disposition home or self-care (01) ==
LOC: GOSHIMG 13:16
PROVIDERS: PCP Internal Medicine; Visit Provider Orthopaedic Surgery
DX: M94.261 Chondromalacia, right knee (principal); M23.221 Derangement of posterior horn of medial meniscus due to old tear or injury, right knee
CPT/HCPCS: 73721

== ENCOUNTER 2024-12-03 09:45 | Outpatient (RCR) | payer MEDICARE, SELFPAY ==
--- NOTE | 2024-11-06 10:31 | PTOPEVAL1 ---
Assessment and note entered by Bubba Guidry Evaluation Information Assessment Status Evaluation ICD-10 Condition Codes (PT) Pain in right knee M25.561 Other ICD-10 Condition Codes ( M17.11, M70.61 PT) Onset 02/20/24 Subjective Information Pt. reports she has had years of right hip pain. She noticed knee pain beginning in the fall of last year. Pt. reports she went through therapy around the fall and was doing well. She states that she recently stopped exercise and has noticed the right leg pain returning. She reports she underwent injection in the right hip and knee in July which helped slightly to improve her pain. She describes hip pain around the right greater trochanter and into the medial knee joint. She states that she wants to get refreshed regarding her exercise and what she needs to focus on. She states that she can do most daily activities, but at the end of the day will develop intense pain. She reports that pain does wake her at night. She states that she uses ice to reduce pain at the end of the day. Pt. reports she Voltaren few times a week. She reports she will also use ibuprofen, which provides mild relief. Pt. reports that her goal is to improve her strength and reduce her pain. Reported Pain Level Pain Score 1,1: Self Report Assessment PT Clinical Summary Pt. is a 69 year old female who enters the clinic with a medical diagnosis right knee pain and trochanteric bursitis. She presents with impaired flexibility, impaired proximal l.e. strength, impaired postural awareness, pain, impaired gait and functional decline. continued skilled PT is recommended in order to improve these areas to allow for decreased pain with functional activities. Plan of Care Interventions Electrical Stimulation,Gait Training,Hot Pack/Cold Pack,Manual Therapy,Neuro Re-education,Patient/ Caregiver Education,Therapeutic Activities, Therapeutic Exercise PT Services Indicated Yes Treatment Frequency and 2x/week x 8 visits Duration These treatments will address the objective and functional deficits as defined above. The patient will be advanced safely and appropriately in order for the patient to progress towards his/her prior level of function. Additional exercises will be introduced and as well as a comprehensive home exercise program upon discharge, if needed, ?to ensure carryover of functional gains achieved in the clinic. This treatment plan has been reviewed and agreement upon by the patient.
--- NOTE | 2024-11-06 10:32 | OPREHPOC ---
Outpatient Therapy Plan of Care This is a Multidisciplinary Plan of Care that may contain components documented by all disciplines (PT, OT, and ST.) PT Problem 1 PT Problem #1 Knowledge Deficit PT Goal 1 Goal / Goal Update Pt. will be independent with a HEP focused on core stabilization and flexibility. Target Visit 2 PT Problem 2 PT Problem #2 Pain PT Goal 1 Goal / Goal Update Pt. will reports pain levels at 4/10 at worst at both the right hip and knee with prolonged standing activities. Target Visit 8 PT Problem 3 PT Problem #3 Impaired Functional Mobility PT Goal 1 Goal / Goal Update Pt. will be able to ambulate for duration of 6 minutes demonstrating no degree of Trendelenburg or increase in right hip or knee pain. Pt. will present with less than 20% limitation on the LEFS indicating significant functional improvement. Target Visit 8 PT Problem 4 PT Problem #4 Impaired Strength PT Goal 1 Goal / Goal Update Pt. will present with 4+/5 right hip abduction strength in order to provide improved pelvic stability during stance phase of gait. Target Visit 8
--- NOTE | 2024-12-03 10:48 | PTOPDC ---
Assessment and note entered by Jaswinder Nova PT Evaluation Information Assessment Status Discharge Diagnosis R knee and hip pain ICD-10 Condition Codes (PT) Pain in right knee M25.561 Other ICD-10 Condition Codes ( M17.11, M70.61 PT) Onset 02/20/24 Subjective Information Pt states she feels 50% overall and notes her pain is not as intense at rest. Pt notes continued difficulty with transition movements such as standing from a chair, getting on and off floor to play with her grandchild. Pt notes her knee pain is still preventing her from participating him walking for exercise and silver [employer] classes. Reported Pain Level Pain Score 2,1: Self Report Assessment PT Clinical Summary Patient's L knee has made some advancements in decrease severity of symptoms, increased mobility, strength, and functional tolerance to activities of daily living. However some physical therapy goals remain unmet due to increased pain with prolonged walking and transitional activities. Patient to discharge from physical therapy this date and continue with home exercise program as instructed. Patient to contact physical therapist or primary care provider if questions or concerns arise. Plan of Care PT Services Indicated No
== END 2024-12-03 13:02 | disposition home or self-care (01) ==
LOC: ANHGOSHPT 09:45
PROVIDERS: PCP Internal Medicine; Visit Provider Orthopaedic Surgery
DX: M17.11 Unilateral primary osteoarthritis, right knee (principal); M70.61 Trochanteric bursitis, right hip
CPT/HCPCS: 97014; 97035; 97110; 97112; 97140; 97161; 97530; G0283

== ENCOUNTER 2024-12-04 08:04 | Outpatient (CLI) | payer MEDICARE, SELFPAY ==
--- OUTSIDE RECORDS SUMMARY | 2024-12-04 08:09 | XMS_ITS | Data Portability ---
Author Organization [facility] Ashley Ponce Address 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 [email or web address] Not available 12/24/2023 19:21:35 06/13/2024 06/13/2024 continue current therapy she will follow up in 6 months [email or web address] Not available 06/30/2024 15:29:44 Plan of Treatment Reminders Order Date Submit Date Provider Last Modified By Organization Details Last Modified Time Details Appointments ANY 15 2025 09:00A M Brando De La Rosa MD Not available Not available Not available Lab CBC w/ auto diff 2023 024 ARLIN [facility] [address], [place], [address], 12/22/2023 09:46:11 lipid panel, serum 2023 024 ARLIN Galvez[facility] [address], [place], [address], 12/19/2023 12:15:27 [facility]MP, serum or plasma [facility] [address], [place], [address], 12/19/2023 09:44:09 T4, free, serum 2023 024 [facility] [address], [place], [address], 12/22/2023 09:44:49 T3, free, serum or plasma 2023 024 [facility] [address], [place], [address], 12/22/2023 09:45:30 TSH, ultra-se nsitive, serum 2023 024 [facility] [address], [place], [address], 01/02/2024 15:11:07 Referral None recorded . Procedures None recorded . Surgeries None recorded . Imaging bone density 2023 024 jefe [facility], [address], [place], [address], 06/13/2024 11:50:53 Medication Orders None recorded . Patient TargetsNo targets recorded. Patient Instructions Encounter Date Encounter Id Patient Instructions Last Modified By Organization Details Last Modified Time 06/13/2024 [id number] Medicare Wellnes s Preventive Checklist Not available 06/13/2024 13:17:21 Reason for Referral None Reported. Results Created Date Observation Date Name Description Value Unit Range Abnormal Flag Note LastModifiedBy Organization Detail LastModifiedTime 12/07/19 24 12/07/2023 MAMMO , scree nighat, digit al, bilat eral No observ ation record ed. [facility] [address], [place], [address], 12/08/2023 16:29:12 08/08/1908/07/2024 MRI, knee, w/o contr ast No observ ation record ed. [facility] [address], [place], [address], 08/07/2024 16:25:22 Result Notes None recorded. Problems Name Problem SNOMED Code Status Onset Date Resolution Date Notes Provider Name and Address Organization Details Recorded Time Hyperlipidemia 13317565 Active 2023 KALLI [place], [place] [facility] 10:29:45 Hypothyroidism 96236991 Active 2023 KALLI [place], [place] [facility] 10:29:46 Problem Notes None recorded. Procedures Surgical History Date Name Laterality Status Provider Name and Address Organization Details Recorded Time 05/22/19 24 Eye Surgery completed Oksana Arroyo MA [facility] 12/14/2023 10:05:28 05/22/19 22 Eye Surgery completed Oksana Arroyo MA [facility] 12/14/2023 10:05:37 12/04/19 20 screening colonoscopy completed Stefania Hearn [facility] 06/12/2024 11:31:49 05/22/19 14 Eye Surgery completed Oksana Arroyo MA [facility] 12/14/2023 10:05:34 05/22/19 10 Arthroscopic Surgery completed Oksana Arroyo MA [facility] 12/14/2023 10:04:35 05/22/18 90 biopsy of breast completed Oksana Arroyo MA [facility] 12/14/2023 10:06:01 excision of pelvic endometriosis completed Oksana Arroyo MA [facility] 12/14/2023 10:07:49 Imaging Results None recorded. Procedure Notes None recorded. Medical Equipment None Reported. Allergies Allergen ID Allergen Name Allergen Category Reaction Reaction Severity Criticality Documentation Date Start Date Code Code System Note Provider Name and Address Organization Details Recorded Time 501564 Keflex medicatio n rash Not available unabletoasse ss 10/09/2023 7 RxNorm MARIAM Gibbs, [place] - [facility] 12:28:44 Medications Name Sig Start Date Stop Date Status Note LastModified by Organization Details LastModified Time prednisone 10 mg tablet TAKE 1 TABLET BY MOUTH TWICE DAILY 12/13 completed Not Available Not Available Not Available azithromyci n 250 mg tablet TAKE 2 TABLETS BY MOUTH FOR 1 DAY THEN TAKE 1 TABLET BY MOUTH DAILY FOR 4 DAYS 06/13 completed Not Available Not Available Not Available clobetasol 0.05 % topical cream APPLY TOPICALLY TO THE AFFECTED AREA DAILY active Not Available Not Available No t Available levothyroxi ne 25 mcg tablet TAKE 1 TABLET BY MOUTH EVERY DAY active Not Available Not Available No t Available vitamins A and D 05893 unit-400 unit capsule Take by oral route. 12/02 completed Not Available Not Available Not Available [...] Available tacrolimus 0.03 % topical ointment APPLY A THIN LAYER TO THE AFFECTED AREA(S) BY TOPICAL ROUTE 2 TIMES PER DAY ; RUB IN GENTLY AND COMPLETEL Y active Not Available Not Available No t Available diclofenac sodium 75 mg tablet,jen yed [...] Not Available Not Available Not Available Vitamin D2 1,250 mcg (50,000 unit) capsule Take 1 capsule every day by oral route. active Not [...] completed Not Available Not Available Not Available Xiidra 5 % eye drops in a dropperette APPLY 1 DROP INTO EYE TWICE DAILY active Not Available Not Available No t Available Vitals Date Recorded Body height Body mass index (BMI) Body weight Oxygen saturation Oxygen saturation in Arterial blood by Pulse oximetry Heart rate Systolic And Diastolic Provider Name and Address Organization Details Last Updated DateTime 5 166.37 cm 22 kg/m2 92869.3 8 g 99 % 99 % 102 /min 120/80 mm[Hg] Madina Macario [facility] 5 09:50:20 Date Recorded Body height Body mass index (BMI) Body weight Heart rate Oxygen saturation Oxygen saturation in Arterial blood by Pulse oximetry Systolic And Diastolic Provider Name and Address Organization Details Last Updated DateTime 5 166.37 cm 21.6 kg/m2 63311.1 9 g 79 /min 98 % 98 % 128/82 mm[Hg] Madina Macario MA [facility] 5 10:53:51 Date Recorded Body weight Body mass index (BMI) Body height Heart rate Oxygen saturation Oxygen saturation in Arterial blood by Pulse oximetry Systolic And Diastolic Provider Name and Address Organization Details Last Updated DateTime 4 35462.7 5 g 22.6 kg/m2 166.37 cm 85 /min 98 % 98 % 126/82 mm[Hg] Oksana Arroyo MA [facility] 4 10:12:38 Social History Question Answer Notes LastModified by Organizat ion Details LastModified Time Tobacco Smoking Status Never Smoker Oksana Arroyo [facility] 12/14/2023 10:03:04 Do You Have An Advance Directive? Yes Information not available 12/14/2023 Are You Blind Or Do You Have Difficulty Seeing? No Information not available 12/14/2023 What Is Your Level Of Caffeine Consumption? Occasional 1-2 Cups Of Tea Information not available 12/14/2023 In The 14 Days Before Symptom Onset, Have You Had Close Contact With A Laboratory-confir med COVID-19 While That Case Was Ill? No Information not available 06/13/2024 In The 14 Days Before Symptom Onset, Have You Had Close Contact With A Person Who Is Under Investigation For COVID-19 While That Person Was Ill? No Information not available 06/13/2024 Have You Been To An Area Known To Be High Risk For COVID-19? No Information not available 06/13/2024 Are You Deaf Or Do You Have Serious Difficulty Hearing? No Information not available 12/14/2023 What Type Of Diet Are You Following? REGULAR Information not available 12/14/2023 Are There Any Guns Present In Your Home? No Information not available 06/13/2024 In The Past 7 Days, How Many Days Did You Exercise? 0 Information not available 06/13/2024 In The Past 7 Days, How Much Pain Have You Stuart? Some Information not available 06/13/2024 In General, Would You Say You Health Is: Very Good Information not available 06/13/2024 How Would You Describe The Condition Of Your Mouth And Teeth- Including False Teeth Or Dentures? Very Good Information not available 06/13/2024 Each Night, How Many Hours Of Sleep Do You Get? 4 Information no t available 06/13/2024 Has Anyone Ever Told You That You Snore? Yes Information not available 06/13/2024 In The Past 7 Days, How Often Have You Stuart Sleepy In The Daytime? Usually Information not available 06/13/2024 # Alcohol Drinks Per Week 0 Information not available 06/13/2024 What Was The Date Of Your Most Recent Tobacco Screening? 12/02/2024 Information not available 12/02/2024 What Is Your Relationship Status? Information not available 12/14/2023 Do You Use Your Seat Belt Or Car Seat Routinely? Yes Information not available 12/14/2023 Do You Have Smoke And Carbon Monoxide Detectors In Your Home? Yes Information not available 12/14/2023 Do You Use Sunscreen Routinely? No Information not available 06/13/2024 Has Tobacco Cessation Counseling Been Provided? No Information not available 12/14/2023 Sex: Female Functional Status Question Answer Note LastModified by Organizat ion Details LastModified Time Do you use any illicit or recreational drugs? No Information not available 12/14/2023 Do you or have you ever used any other forms of tobacco or nicotine? No Information not available 12/14/2023 What is your level of alcohol consumption? None former Information not available 12/14/2023 Are you currently employed? No retired Information not available 12/14/2023 Are you able to care for yourself? Yes Information not available 12/14/2023 What is your exercise level? Occasional not much recently compared to normal Information not available 06/13/2024 Mental Status Question Answer Note LastModified by Organization D etails LastModified Time Do you feel stressed (tense, restless, nervous, or anxious, or unable to sleep at night)? [id number] Information not available 06/13/2024 Family History Relationship Description Onset Age of [...] Response Coronary Artery Disease N Other N Atrial Fibrillation N High Blood Pressure Y Depression N COPD N Blood Clots N Anxiety Disorder N Muscle, Joint, or Bone Problems N Acid Reflux (GERD) N Cancer N Stroke N High Cholesterol Y Liver Disease N Headaches N Kidney or Bladder Problems N Thyroid Problems Y GI Problems N Have you had a mammogram in the last yea r? Y Skin Problems N Anemia N Heart Attack (NH) N Diabetes N Seizures/Epilepsy N Have you had a colonoscopy in the last 1 0 years? Y Asthma N Allergies N Have you had a PSA blood test in the las t year? N Hepatitis N Heart Failure N Osteoporosis N Gynecological HistoryNo gynecological history recorded. Obstetrics History GPAL:G 0 P 0 0 0 0 Immunizations Vaccine Type Date Status Note Provider Nam e and Address Organization Details Recorded Time Influenza, split virus, quadrivalent, preservative 9 completed KALLI [place], [place] - [facility] 12/14/2023 09:47:55 Influenza, MDCK, quadrivalent, PF 9 completed Oksana Arroyo [place], [place] [facility] 12/14/2023 09:47:55 zoster recombinant 2 completed O[place]ana [place]roy[place] [facility] 12/14/2023 09:47:55 zoster recombinant 2 completed [place]ALL[place] [facility] 12/14/2023 09:47:55 Influenza, high-dose, quadrivalent, PF 1 [place] [facility] 12/14/2023 09:47:55 Influenza, high-dose, quadrivalent, PF 3 [place]ALL[place] [facility] 12/14/2023 09:47:55 Influenza, high-dose, quadrivalent, PF 1 [place] [facility] 12/14/2023 09:47:55 Influenza, adjuvanted, quadrivalent, PF 2 [place]ALL[place] [facility] 12/14/2023 09:47:55 COVID-19, mRNA, LNP-S, PF, 100 mcg/0.5mL dose or 50 mcg/0.25mL dose 1 [place]ALL[place] [facility] 12/14/2023 09:47:55 COVID-19, mRNA, LNP-S, PF, 100 mcg/0.5mL dose or 50 mcg/0.25mL dose 1 [place]ALL[place] [facility] 12/14/2023 09:47:55 COVID-19, mRNA, LNP-S, PF, 100 mcg/0.5mL dose or 50 mcg/0.25mL dose 2 completed KALLI [place] - [...] Influenza, split virus, quadrivalent, PF 8 completed Oksana [place] [facility] 12/14/2023 09:47:55 Influenza, split virus, quadrivalent, PF 7 completed Oksana Arroyo [place] [facility] 12/14/2023 09:47:55 COVID-19, mRNA, LNP-S, PF, kadeem-sucrose, 30 mcg/0.3 mL 4 completed Madina Macario [place] [facility] 06/13/2024 09:42:56 Influenza, high-dose, trivalent, PF 4 completed KALLI [place] [facility] 06/13/2024 09:42:56 Past Encounters Encounter ID Performer Location Encounter Start Date Encounter Closed Date Diagnosis/Indication Diagnosis SNOMED-CT Code Diagnosis ICD10 Code Diagnosis Note [id number] Brando De La Rosa MD [facility] [employer] [facility] [place] [address] [email or web address] [address] 12/14/2023 09:42:58 12/14/2023 10:32:57 Hyperlipidemia 45514244 E78.5 Hypothyroidism 70141127 E03.9 Long-term drug therapy 695535697 Z79.899 Postmenopausal state 764 02731 Z78.0 [id number] Brando De La Rosa MD [facility] [employer] [facility] [place] [address] [email or web address] [address] 06/13/2024 09:40:49 06/13/2024 10:16:52 Body mass index 20-24 - normal 803599749 Z68.22 Adult [facility] examination 864232371 Z00.00 Health Risk Assessment collected and reviewed Hyperlipidemia 77801198 E78.5 Hypothyroidism 29717811 E03.9 [id number] Brando De La Rosa MD [facility] [employer] [facility] [facility] [place] [address] [email or web address] [address] 12/02/2024 10:44:11 12/02/2024 11:54:48 Body mass index 20-24 - normal 895159772 Z68.21 Hyperlipidemia 74511448 E78.5 Hypothyroidism 45325114 E03.9 Health Concerns Section Related Observation LastModified by Organization Detai ls LastModified Time None Recorded Concern Status LastModified by Organization Details LastModified Time None Recorded Advance Directives Directive Y: Payers Insurance Date Sequence Insurance Name Policy Number Policy Venegas Covered Member ID Venegas Member ID Guarantor Name 11/29/2024 1 [employer] (MEDICARE REPLACEMENT/ ADVANTAGE - PPO) [id number] Michaela Celestin [id number] Michaela Celestin Notes Date Note Type Note Provider Name and Address Organization Details Recorded Time 12/14/2023 text/html continuity of medical problems hyperlipidemia tries to follow a low-fat diet. Hypothyroid had a little bit of problems on 50 mcg of Synthroid gave her some palpitations. Postmenopausal state needs bone density Brando De La Rosa MD Attn: [address] [place], [address], 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 Vision:no vision problems Activities of Daily Living:able to bathe with limited or no assistance; able to contol urination and bowels; able to dress with limited or no assistance; able to feed self with limited or no assistance; able to get out of chair or bed with limited or no assistance; able to groom with limited or no assistance; able to toilet with limited or no assistance Instrumental Activities of Daily Living:able to do house work with limited or no assistance; able to grocery shop with limited or no assistance; able to manage medications with limited or no assistance; able to manage money with limited or no assistance; able to prepare meals with limited or no assistance; able to use the phone with limited or no assistance Falls Risk Assessment:no frequent falls while walking; no fall in the past year; no fall since last visit; no dizziness/vertigo Home Safety:reviewed sun protection; no unsafe chevy hazzards; no unsafe stairs; working smoke/CO detectors; practicing 'safer sex'; no fire arms; has hand bars in the bathroom/shower; good lighting in the home hypothyroid no heat or cold intolerance dyslipidemia she was trying to watch her diet the best that she can arthritic complaints diclofenac as needed Brando De La Rosa MD Attn: [address] [place], [address], [facility] 06/30/2024 15:30:05 OBGyn Episode No OBEpisode recorded.
--- OUTSIDE RECORDS SUMMARY | 2024-12-04 08:09 | XMS_ITS | Clinical Summary ---
Author Organization [facility] [employer] Address [address] [place] [address] Care Team Providers Care Audio Visual Aide Name Role Phone Unavailable Primary Care Provider Unavailabl e Source Comments [facility] [employer],non-[facility] Affiliates and Associated Physician Practices is amultiple site organization consisting of ambulatory clinics and hospital sitesin [place], [place], [place] and [place]. This disclosure is being madepursuant to the Care Everywhere program and may not contain all information available regarding this patient. Last updated 18.[facility] [employer] Social History Tobacco Use Types Packs/Day Years Used Date Smoking Tobacco: Never Assessed Comments Unknown Sex and Gender Information Value Date Recorded Sex Assigned at Not on file Legal Sex Female 10:49 AM CDT Gender Identity Not on file Sexual Orientation [...] VACCINE ( - 2023-2 5 season) 2024 DEPRESSION SCREENING 05/22/2024 INFLUENZA VACCINE (#1) 2025 Respiratory Syncytial Virus (RSV) Vaccine Pt: or [...] to complete this topic MENINGOCOCCAL (Group B) VACC INE SHARED DECISION-MAKING Aged Out No longer eligibl e based on patient's age to complete this topic MENINGOCOCCAL GROUPS A/C/Y/W VACCINE Aged Out No longer eligible b ased on patient's age to complete this topic Insurance [employer] MANAGED MEDICARE ADV
--- OUTSIDE RECORDS SUMMARY | 2024-12-04 08:09 | XMS_ITS | Data Portability ---
Author Organization [facility], Main Office Address [address] [place] [address] Care Team Providers Care Submarine Advisory Team Watch Officer Name Role Phone BRANDO DE LA ROSA Primary Care Provider Assessment Encounter Date Assessment Date Assessment LastModified by Organization Details LastModified Time 12/06/2022 12/06/2022 Set her up with ENT wellness discussed blood work ordered follow-up in 6 months [email or web address] Not available 12/09/2022 21:05:25 06/06/2023 06/06/2023 Blood work thyroid ultrasound Orthopedics for trochanteric bursitis [email or web address] Not available 06/06/2023 22:52:19 Plan of Treatment Reminders Order Date Submit Date Provider Last Modified By Organization Details Last Modified Time Details Appointments None recorded. Lab CBC w/ auto diff 2023 024 [...] 2023 024 ARLIN Not available 4 20:03:43 T3, free, serum or plasma 2022 023 ARLIN Not available 3 13:22:19 T4, free, serum 2022 023 ARLIN Not available 3 13:22:24 TSH, serum or plasma 2022 023 ARLIN Not available 3 13:31:55 lipid panel, serum 2022 023 ARLIN Not available 3 12:58:30 CMP, serum or plasma 2022 023 ARLIN Not available 3 12:58:41 CBC w/ auto diff 2022 023 ARLIN Not available 12:45:57 Referral ENT surgery referral 2022 023 [email or web address] Oliver Burger MD, [address], [place], [address], 4 19:59:30 hearing screening referral 2022 023 [email or web address] [facility], [address], [address], [place], [address], 4 19:59:30 Procedures None recorded. Surgeries None recorded. Imaging US, thyroid 2023 024 cyl Not available 4 11:10:32 Medication Orders None recorded. Patient TargetsNo targets recorded. Patient Instructions Encounter Date Encounter Id Patient Instructions Last Modified By Organization Details Last Modified Time 12/06/2022 [id number] dementia rating scale-2* [email or web address] Not available 12/06/2022 22:13:34 alcohol misuse* Not available 12/06/2022 22:13:34 depression screening* Not available 12/06/2022 22:13:34 multi-dimensiona l health assessment questionnaire* [email or web address] Not available 12/06/2022 22:13:34 Personalized Hea lth Plan and Screening Recommendations Advance Directives - Do you have one? Yes Advance Directives - Do we have your advance directive on file in your health record? No, please bring in a copy at your earliest convenience Primary Prevention/Interven tion (prevents or decreases the chance of common diseases from occurring) Smoking Risk: Non Smoker I have no recommendations. Alcohol Misuse Screening: Negative I have no recommendations. Weight: Appropriate Physical activity: Appropriate physical activity Nutrition: Good Fall Risk (screened today): Low Vaccines Pneumococcal: No further needed Influenza: Your next one in the fall of this year Chronic Disease Risks Stroke: Intermediate Risk Continue current treatment plan Heart Attack: Intermediate Risk Continue current treatment plan Clogging of the Arteries: Intermediate Risk Continue current treatment plan Diabetes: Low Risk I have no recommendations Secondary Prevention/Interven tion (detects treatable diseases before they may cause symptoms, disability, or ) Breast Cancer Screening with mammogram: Your next mammogram: 03/17/2023 Cervical/Uterine/Ov cherie Cancer Screening: No screening necessary Osteoporosis Screening: Recommended today Date Screening Last Performed: 07/13/20 Colon Cancer Screening: Colonoscopy In: 12/04/2024 Date Screening Last Performed: 12/04/2019 with repeat recommendation for 5 years Eye Disease Screening: Yearly visits Dementia Risk: Low I have no recommendations Depression Screening: Negative I have no recommendations. Not available 12/06/2022 14:46:01 12/22/2022 [id number] the patient has plans for hearing aids [...] Abnormal Flag Note LastModifiedBy Organization Detail LastModifiedTime 01/15/20 22 01/14/2022 TSH thyroid-stim ulating hormone 4.290 uIU/m L 0.465- 4.680 Not Available [facility] (Lab) [address] [place], [address], 01/14/2022 15:05:51 01/15/20 22 01/14/2022 T3 FREE free T3 3.1 pg/mL 2.77-5 .27 Not Available [facility] (Lab) [address] [place], [address], 01/14/2022 14:51:30 01/15/2001/14/2022 T4 FREE free T4 1.33 NG/dL 0.78-2 .19 Not Available [facility] (Lab) [address] [place], [address], 01/14/2022 14:51:24 01/15/20 22 01/14/2022 LIPID PANEL cholesterol 193 mg/dL 140-19 9 NIH ANUPAM NSUS RECOM MENDA TION FOR JAMIE STERO L: ADULT CHILD LOW RISK: <200 <170 BORDE RLINE : <200- 239 ----- HIGH RISK: >240 >200 Not Available [facility] (Lab) [address] [place], [address], 01/14/2022 14:44:44 01/15/20 22 01/14/2022 LIPID PANEL triglyceride s 102 mg/dL 0-150 NIH ANUPAM NSUS REPOR T RECOM MENDA TION FOR TRIGL YCERI FELICIA: ADULT CHILD LOW RISK: <150 ----- BODER LINE: 150-1 99 ----- HIGH RISK: >200 ----- Not Available [facility] (Lab) [address] [place], [address], 01/14/2022 14:44:44 01/15/20 22 01/14/2022 LIPID PANEL HDL cholesterol 68 mg/dL 40- Not Available [facility] (Lab) [address] [place], [address], 01/14/2022 14:44:44 01/15/2001/14/2022 LIPID PANEL LDL cholesterol, calculated 105 mg/dL [...] WILL NOT BE REPOR KIMI. Not Available [facility] (Lab) [address] [place], [address], 01/14/2022 14:44:44 01/15/20 22 01/14/2022 COMPR EHENS STAR METAB OLIC PANEL sodium 139 mmol/ L 137-14 5 Not Available [facility] (Lab) [address] [place], [address], 01/14/2022 14:44:42 01/15/20 22 01/14/2022 COMPR EHENS STAR METAB OLIC PANEL potassium 4.3 mmol/ L 3.5-5. 1 Not Available [facility] (Lab) [address] [place], [address], 01/14/2022 14:44:42 01/15/20 22 01/14/2022 COMPR EHENS STAR METAB OLIC PANEL chloride 104 mmol/ L 98-107 Not Available [facility] (Lab) [address] [place], [address], 01/14/2022 14:44:42 01/15/20 22 01/14/2022 COMPR EHENS STAR METAB OLIC PANEL carbon dioxide 31 mmol/ L 22-30 high Not Available [facility] (Lab) [address] [place], [address], 01/14/2022 14:44:42 01/15/20 22 01/14/2022 COMPR EHENS STAR METAB OLIC PANEL anion gap 8.3 mmol/ L 14-22 low Not Available [facility] (Lab) [address] [place], [address], 01/14/2022 14:44:42 01/15/20 22 01/14/2022 COMPR EHENS STAR METAB OLIC PANEL glucose 92 mg/dL 70-99 Not Available [facility] (Lab) [address] [facility] [place], [address], 01/14/2022 14:44:42 01/15/20 22 01/14/2022 COMPR EHENS STAR METAB OLIC PANEL BUN 15 mg/dL 8-19 Not Available [facility] (Lab) [address] [place], [address], 01/14/2022 14:44:42 01/15/20 22 01/14/2022 COMPR EHENS STAR METAB OLIC PANEL creatinine 0.77 mg/dL 0.66-1 .25 Not Available [facility] (Lab) [address] [facility] [place], [address], 01/14/2022 14:44:42 01/15/20 22 01/14/2022 COMPR EHENS STAR METAB OLIC PANEL GFR >60 Refer ence Range : [place] ge GFR Healt hy Adult : >60 [...] or ethni c subgr oups, such as Hisnj nics. Outsi de the valid ated jay [...] calcu lator is avail able on the [employer] websi te: https :[email or web address] rg/pr ofess ional s/kdo qi/gf r_cal culat or Not Available [facility] (Lab) [address] [place], [address], 01/14/2022 14:44:42 01/15/20 22 01/14/2022 COMPR EHENS STAR METAB OLIC PANEL alkaline phosphatase 107 U/L 38-126 Not Available [facility] (Lab) [address] [place], [address], 01/14/2022 14:44:42 01/15/20 22 01/14/2022 COMPR EHENS STAR METAB OLIC PANEL alanine aminotransfe rase 24 U/L 0-35 Not Available [facility] (Lab) [address] [place], [address], 01/14/2022 14:44:42 01/15/20 22 01/14/2022 COMPR EHENS STAR METAB OLIC PANEL aspartate aminotransfe rase 36 U/L 15-37 Not Available [facility] (Lab) [address] [place], [address], 01/14/2022 14:44:42 01/15/20 22 01/14/2022 COMPR EHENS STAR METAB OLIC PANEL bilirubin, total 0.60 mg/dL 0.20-1 .30 Not Available [facility] (Lab) [address] [place], [address], 01/14/2022 14:44:42 01/15/20 22 01/14/2022 COMPR EHENS STAR METAB OLIC PANEL calcium 9.2 mg/dL 8.4-10 .2 Not Available [facility] (Lab) [address] [place], [address], 01/14/2022 14:44:42 01/15/20 22 01/14/2022 COMPR EHENS STAR METAB OLIC PANEL total protein 7.1 g/dL 6.3-8. 2 Not Available [facility] (Lab) [address] [place], [address], 01/14/2022 14:44:42 01/15/20 22 01/14/2022 COMPR EHENS STAR METAB OLIC PANEL albumin 4.4 g/dL 3.0-4. 4 Not Available [facility] (Lab) [address] [place], [address], 01/14/2022 14:44:42 01/15/20 22 01/14/2022 COMPR EHENS STAR METAB OLIC PANEL globulin 2.7 g/dL 2.6-4. 2 Not Available [facility] (Lab) [address] [place], [address], 01/14/2022 14:44:42 01/15/20 22 01/14/2022 COMPR EHENS STAR METAB OLIC PANEL A/G ratio 1.6 ratio 1.0-2. 0 Not Available [facility] (Lab) [address] [place], [address], 01/14/2022 14:44:42 12/10/19 23 12/09/2022 CBC/C OMPLE TE BLD COUNT W/DIF F white blood cells 4.1 x10'3 /uL 4.2-10 .8 low Not Available [facility] (Lab) [address] [place], [address], 12/09/2022 12:45:56 12/10/19 23 12/09/2022 CBC/C OMPLE TE BLD COUNT W/DIF F red blood cells 5.31 x10'6 /uL 3.80-5 .20 high Not Available [facility] (Lab) [address] [place], [address], 12/09/2022 12:45:56 12/10/19 23 12/09/2022 CBC/C OMPLE TE BLD COUNT W/DIF F hemoglobin 15.2 g/dL 12.0-1 5.6 Not Available [facility] (Lab) [address] [place], [address], 12/09/2022 12:45:56 12/10/19 23 12/09/2022 CBC/C OMPLE TE BLD COUNT W/DIF F hematocrit 48.3 % 35.7-4 5.7 high Not Available [facility] (Lab) [address] [place], [address], 12/09/2022 12:45:56 12/10/19 23 12/09/2022 CBC/C OMPLE TE BLD COUNT W/DIF F mean red cell volume 91.0 fL 82.0-9 9.0 Not Available [facility] (Lab) [address] [place], [address], 12/09/2022 12:45:56 12/10/19 23 12/09/2022 CBC/C OMPLE TE BLD COUNT W/DIF F mean red cell hemoglobin 28.6 pg 27.0-3 3.0 Not Available [facility] (Lab) [address] [place], [address], 12/09/2022 12:45:56 12/10/19 23 12/09/2022 CBC/C OMPLE TE BLD COUNT W/DIF F mean RBC HGB concentratio n 31.5 g/dL 31.0-3 6.0 Not Available [facility] (Lab) [address] [place], [address], 12/09/2022 12:45:56 12/10/19 23 12/09/2022 CBC/C OMPLE TE BLD COUNT W/DIF F red cell distribution width 13.2 % 11.8-1 5.5 Not Available [facility] (Lab) [address] [place], [address], 12/09/2022 12:45:56 12/10/19 23 12/09/2022 CBC/C OMPLE TE BLD COUNT W/DIF F platelets 205 x10'3 /uL 150-40 0 Not Available [facility] (Lab) [address] [place], [address], 12/09/2022 12:45:56 12/10/19 23 12/09/2022 CBC/C OMPLE TE BLD COUNT W/DIF F mean platelet volume 10.9 fL 9.0-12 .4 Not Available [facility] (Lab) [address] [place], [address], 12/09/2022 12:45:56 12/10/19 23 12/09/2022 CBC/C OMPLE TE BLD COUNT W/DIF F neutrophils 49.0 % 39.0-7 2.0 Not Available [facility] (Lab) [address] [place], [address], 12/09/2022 12:45:56 12/10/19 23 12/09/2022 CBC/C OMPLE TE BLD COUNT W/DIF F lymphocytes 34.5 % 16.0-4 7.0 Not Available [facility] (Lab) [address] [place], [address], 12/09/2022 12:45:56 12/10/19 23 12/09/2022 CBC/C OMPLE TE BLD COUNT W/DIF F monocytes 12.6 % 5.0-12 .0 high Not Available [facility] (Lab) [address] [place], [address], 12/09/2022 12:45:56 12/10/19 23 12/09/2022 CBC/C OMPLE TE BLD COUNT W/DIF F eosinophils 2.7 % 1.0-7. 0 Not Available [facility] (Lab) [address] [place], [address], 12/09/2022 12:45:56 12/10/19 23 12/09/2022 CBC/C OMPLE TE BLD COUNT W/DIF F basophils 1.0 % 0.0-2. 0 Not Available [facility] (Lab) [address] [place], [address], 12/09/2022 12:45:56 12/10/19 23 12/09/2022 CBC/C OMPLE TE BLD COUNT W/DIF F immature granulocytes 0.2 % 0.00-0 .50 Not Available [facility] (Lab) [address] [place], [address], 12/09/2022 12:45:56 12/10/19 23 12/09/2022 CBC/C OMPLE TE BLD COUNT W/DIF F neutrophils, absolute count 2.03 x10'3 /uL 1.5-8. 0 Not Available [facility] (Lab) [address] [place], [address], 12/09/2022 12:45:56 12/10/19 23 12/09/2022 CBC/C OMPLE TE BLD COUNT W/DIF F lymphocytes, absolute count 1.43 x10'3 /uL 1.07-3 .43 Not Available [facility] (Lab) [address] [place], [address], 12/09/2022 12:45:56 12/10/19 23 12/09/2022 CBC/C OMPLE TE BLD COUNT W/DIF F monocytes, absolute count 0.52 x10'3 /uL 0.29-0 .99 Not Available [facility] (Lab) [address] [place], [address], 12/09/2022 12:45:56 12/10/19 23 12/09/2022 CBC/C OMPLE TE BLD COUNT W/DIF F eosinophils, absolute count 0.11 x10'3 /uL 0.02-0 .53 Not Available [facility] (Lab) [address] [place], [address], 12/09/2022 12:45:56 12/10/19 23 12/09/2022 CBC/C OMPLE TE BLD COUNT W/DIF F basophils, absolute count 0.04 x10'3 /uL 0.01-0 .08 Not Available [facility] (Lab) [address] [place], [address], 12/09/2022 12:45:56 12/10/19 23 12/09/2022 CBC/C OMPLE TE BLD COUNT W/DIF F immature granulocytes ,absolute 0.01 x10'3 /uL 0.00-0 .05 Not Available [facility] (Lab) [address] [place], [address], 12/09/2022 12:45:56 12/10/19 23 12/09/2022 CBC/C OMPLE TE BLD COUNT W/DIF F nucleated red blood cells 0.0 % -0 Not Available [facility] (Lab) [address] [place], [address], 12/09/2022 12:45:56 12/10/19 23 12/09/2022 CBC/C OMPLE TE BLD COUNT W/DIF F NRBC# 0.00 x10'3 /uL Not Available [facility] (Lab) [address] [place], [address], 12/09/2022 12:45:56 12/10/19 23 12/09/2022 LIPID PANEL cholesterol 189 mg/dL 140-19 9 NIH ANUPAM NSUS RECOM MENDA TION FOR JAMIE STERO L: ADULT CHILD LOW RISK: <200 <170 BORDE RLINE : <200- 239 ----- HIGH RISK: >240 >200 Not Available [facility] (Lab) [address] [place], [address], 12/09/2022 12:58:29 12/10/19 23 12/09/2022 LIPID PANEL triglyceride s 118 mg/dL 0-150 NIH ANUPAM NSUS REPOR T RECOM MENDA TION FOR TRIGL YCERI FELICIA: ADULT CHILD LOW RISK: <150 ----- BODER LINE: 150-1 99 ----- HIGH RISK: >200 ----- Not Available [facility] (Lab) [address] [place], [address], 12/09/2022 12:58:29 12/10/19 23 12/09/2022 LIPID PANEL HDL cholesterol 77 mg/dL 40- Not Available [facility] (Lab) [address] [place], [address], 12/09/2022 12:58:29 12/10/19 23 12/09/2022 LIPID PANEL [...] WILL NOT BE REPOR KIMI. Not Available [facility] (Lab) [address] [place], [address], 12/09/2022 12:58:29 12/10/19 23 12/09/2022 COMPR EHENS STAR METAB OLIC PANEL sodium 140 mmol/ L 137-14 5 Not Available [facility] (Lab) [address] [place], [address], 12/09/2022 12:58:41 12/10/19 23 12/09/2022 COMPR EHENS STAR METAB OLIC PANEL potassium 4.3 mmol/ L 3.5-5. 1 Not Available [facility] (Lab) [address] [place], [address], 12/09/2022 12:58:41 12/10/19 23 12/09/2022 COMPR EHENS STAR METAB OLIC PANEL chloride 104 mmol/ L 98-107 Not Available [facility] (Lab) [address] [place], [address], 12/09/2022 12:58:41 12/10/19 23 12/09/2022 COMPR EHENS STAR METAB OLIC PANEL carbon dioxide 31 mmol/ L 22-30 high Not Available [facility] (Lab) [address] [place], [address], 12/09/2022 12:58:41 12/10/19 23 12/09/2022 COMPR EHENS STAR METAB OLIC PANEL anion gap 9.3 mmol/ L 14-22 low Not Available [facility] (Lab) [address] [place], [address], 12/09/2022 12:58:41 12/10/19 23 12/09/2022 COMPR EHENS STAR METAB OLIC PANEL glucose 81 mg/dL 70-99 Not Available [facility] (Lab) [address] [place], [address], 12/09/2022 12:58:41 12/10/19 23 12/09/2022 COMPR EHENS STAR METAB OLIC PANEL BUN 21 mg/dL 8-19 high Not Available [facility] (Lab) [address] [place], [address], 12/09/2022 12:58:41 12/10/19 23 12/09/2022 COMPR EHENS STAR METAB OLIC PANEL creatinine 0.74 mg/dL 0.66-1 .25 Not Available [facility] (Lab) [address] [place], [address], 12/09/2022 12:58:41 12/10/19 23 12/09/2022 COMPR EHENS STAR METAB OLIC PANEL GFR >60 Refer ence Range : [place] ge GFR Healt hy Adult : >60 [...] calcu lator is avail able on the [facility] websi te: https :[email or web address] jose/pr ofess ional s/kdo qi/gf r_cal culat or Not Available [facility] (Lab) [address] [place], [address], 12/09/2022 12:58:41 12/10/19 23 12/09/2022 COMPR EHENS STAR METAB OLIC PANEL alkaline phosphatase 94 U/L 38-126 Not Available [facility] (Lab) [address] [place], [address], 12/09/2022 12:58:41 12/10/19 23 12/09/2022 COMPR EHENS STAR METAB OLIC PANEL alanine aminotransfe rase 34 U/L 0-35 Not Available [facility] (Lab) [address] [place], [address], 12/09/2022 12:58:41 12/10/19 23 12/09/2022 COMPR EHENS STAR METAB OLIC PANEL aspartate aminotransfe rase 40 U/L 15-37 high Not Available [facility] (Lab) [address] [place], [address], 12/09/2022 12:58:41 12/10/19 23 12/09/2022 COMPR EHENS STAR METAB OLIC PANEL bilirubin, total 0.50 mg/dL 0.20-1 .30 Not Available [facility] (Lab) [address] [place], [address], 12/09/2022 12:58:41 12/10/19 23 12/09/2022 COMPR EHENS STAR METAB OLIC PANEL calcium 8.9 mg/dL 8.4-10 .2 Not Available [facility] (Lab) [address] [place], [address], 12/09/2022 12:58:41 12/10/19 23 12/09/2022 COMPR EHENS STAR METAB OLIC PANEL total protein 7.0 g/dL 6.3-8. 2 Not Available [facility] (Lab) [address] [place], [address], 12/09/2022 12:58:41 12/10/19 23 12/09/2022 COMPR EHENS STAR METAB OLIC PANEL albumin 4.2 g/dL 3.0-4. 4 Not Available [facility] (Lab) [address] [place], [address], 12/09/2022 12:58:41 12/10/19 23 12/09/2022 COMPR EHENS STAR METAB OLIC PANEL globulin 2.8 g/dL 2.6-4. 2 Not Available [facility] (Lab) [address] [place], [address], 12/09/2022 12:58:41 12/10/19 23 12/09/2022 COMPR EHENS STAR METAB OLIC PANEL A/G ratio 1.5 ratio 1.0-2. 0 Not Available [facility] (Lab) [address] [place], [address], 12/09/2022 12:58:41 12/10/19 23 12/09/2022 T3 FREE free T3 2.8 pg/mL 2.77-5 .27 Not Available [facility] (Lab) [address] [place], [address], 12/09/2022 13:22:19 12/10/19 23 12/09/2022 T4 FREE free T4 0.95 NG/dL 0.78-2 .19 Not Available [facility] (Lab) [address] [place], [address], 12/09/2022 13:22:24 12/10/19 23 12/09/2022 TSH thyroid-stim ulating hormone 5.030 uIU/m L 0.465- 4.680 high Not Available [facility] (Lab) [address] [place], [address], 12/09/2022 13:31:55 06/13/19 24 06/13/2023 CBC/C OMPLE TE BLD COUNT W/DIF F white blood cells 4.4 x10'3 /uL 4.2-10 .8 Not Available [facility] (Lab) [address] [place], [address], 06/13/2023 13:09:11 06/13/19 24 06/13/2023 CBC/C OMPLE TE BLD COUNT W/DIF F red blood cells 5.09 x10'6 /uL 3.80-5 .20 Not Available [facility] (Lab) [address] [place], [address], 06/13/2023 13:09:11 06/13/19 24 06/13/2023 CBC/C OMPLE TE BLD COUNT W/DIF F hemoglobin 15.2 g/dL 12.0-1 5.6 Not Available [facility] (Lab) [address] [place], [address], 06/13/2023 13:09:11 06/13/19 24 06/13/2023 CBC/C OMPLE TE BLD COUNT W/DIF F hematocrit 47.7 % 35.7-4 5.7 high Not Available [facility] (Lab) [address] [place], [address], 06/13/2023 13:09:11 06/13/19 24 06/13/2023 CBC/C OMPLE TE BLD COUNT W/DIF F mean red cell volume 93.7 fL 82.0-9 9.0 Not Available [facility] (Lab) [address] [facility] [place], [address], 06/13/2023 13:09:11 06/13/19 24 06/13/2023 CBC/C OMPLE TE BLD COUNT W/DIF F mean red cell hemoglobin 29.9 pg 27.0-3 3.0 Not Available [facility] (Lab) [address] [place], [address], 06/13/2023 13:09:11 06/13/19 24 06/13/2023 CBC/C OMPLE TE BLD COUNT W/DIF F mean RBC HGB concentratio n 31.9 g/dL 31.0-3 6.0 Not Available [facility] (Lab) [address] [place], [address], 06/13/2023 13:09:11 06/13/19 24 06/13/2023 CBC/C OMPLE TE BLD COUNT W/DIF F red cell distribution width 13.3 % 11.8-1 5.5 Not Available [facility] (Lab) [address] [place], [address], 06/13/2023 13:09:11 06/13/19 24 06/13/2023 CBC/C OMPLE TE BLD COUNT W/DIF F platelets 202 x10'3 /uL 150-40 0 Not Available [facility] (Lab) [address] [place], [address], 06/13/2023 13:09:11 06/13/19 24 06/13/2023 CBC/C OMPLE TE BLD COUNT W/DIF F mean platelet volume 11.4 fL 9.0-12 .4 Not Available [facility] (Lab) [address] [place], [address], 06/13/2023 13:09:11 06/13/19 24 06/13/2023 CBC/C OMPLE TE BLD COUNT W/DIF F neutrophils 51.4 % 39.0-7 2.0 Not Available [facility] (Lab) [address] [place], [address], 06/13/2023 13:09:11 06/13/19 24 06/13/2023 CBC/C OMPLE TE BLD COUNT W/DIF F lymphocytes 32.9 % 16.0-4 7.0 Not Available [facility] (Lab) [address] [place], [address], 06/13/2023 13:09:11 06/13/19 24 06/13/2023 CBC/C OMPLE TE BLD COUNT W/DIF F monocytes 12.6 % 5.0-12 .0 high Not Available [facility] (Lab) [address] [place], [address], 06/13/2023 13:09:11 06/13/19 24 06/13/2023 CBC/C OMPLE TE BLD COUNT W/DIF F eosinophils 2.0 % 1.0-7. 0 Not Available [facility] (Lab) [address] [place], [address], 06/13/2023 13:09:11 06/13/19 24 06/13/2023 CBC/C OMPLE TE BLD COUNT W/DIF F basophils 0.9 % 0.0-2. 0 Not Available [facility] (Lab) [address] [place], [address], 06/13/2023 13:09:11 06/13/19 24 06/13/2023 CBC/C OMPLE TE BLD COUNT W/DIF F immature granulocytes 0.2 % 0.00-0 .50 Not Available [facility] (Lab) [address] [place], [address], 06/13/2023 13:09:11 06/13/19 24 06/13/2023 CBC/C OMPLE TE BLD COUNT W/DIF F neutrophils, absolute count 2.28 x10'3 /uL 1.5-8. 0 Not Available [facility] (Lab) [address] [place], [address], 06/13/2023 13:09:11 06/13/19 24 06/13/2023 CBC/C OMPLE TE BLD COUNT W/DIF F lymphocytes, absolute count 1.46 x10'3 /uL 1.07-3 .43 Not Available [facility] (Lab) [address] [place], [address], 06/13/2023 13:09:11 06/13/19 24 06/13/2023 CBC/C OMPLE TE BLD COUNT W/DIF F monocytes, absolute count 0.56 x10'3 /uL 0.29-0 .99 Not Available [facility] (Lab) [address] [place], [address], 06/13/2023 13:09:11 06/13/19 24 06/13/2023 CBC/C OMPLE TE BLD COUNT W/DIF F eosinophils, absolute count 0.09 x10'3 /uL 0.02-0 .53 Not Available [facility] (Lab) [address] [place], [address], 06/13/2023 13:09:11 06/13/19 24 06/13/2023 CBC/C OMPLE TE BLD COUNT W/DIF F basophils, absolute count 0.04 x10'3 /uL 0.01-0 .08 Not Available [facility] (Lab) [address] [place], [address], 06/13/2023 13:09:11 06/13/19 24 06/13/2023 CBC/C OMPLE TE BLD COUNT W/DIF F immature granulocytes ,absolute 0.01 x10'3 /uL 0.00-0 .05 Not Available [facility] (Lab) [address] [place], [address], 06/13/2023 13:09:11 06/13/19 24 06/13/2023 CBC/C OMPLE TE BLD COUNT W/DIF F nucleated red blood cells 0.0 % -0 Not Available [facility] (Lab) [address] [place], [address], 06/13/2023 13:09:11 06/13/19 24 06/13/2023 CBC/C OMPLE TE BLD COUNT W/DIF F NRBC# 0.00 x10'3 /uL Not Available [facility] (Lab) [address] [place], [address], 06/13/2023 13:09:11 06/13/19 24 06/13/2023 LIPID PANEL cholesterol 186 mg/dL 140-19 9 NIH ANUPAM NSUS RECOM MENDA TION FOR JAMIE STERO L: ADULT CHILD LOW RISK: <200 <170 BORDE RLINE : <200- 239 ----- HIGH RISK: >240 >200 Not Available [facility] (Lab) [address] [place], [address], 06/13/2023 19:28:43 06/13/1906/13/2023 LIPID PANEL triglyceride s 104 mg/dL 0-150 NIH ANUPAM NSUS REPOR T RECOM MENDA TION FOR TRIGL YCERI FELICIA: ADULT CHILD LOW RISK: <150 ----- BODER LINE: 150-1 99 ----- HIGH RISK: >200 ----- Not Available [facility] (Lab) [address] [place], [address], 06/13/2023 19:28:43 06/13/19 24 06/13/2023 LIPID PANEL HDL cholesterol 71 mg/dL 40- Not Available [facility] (Lab) [address] [facility] [place], [address], 06/13/2023 19:28:43 06/13/19 24 06/13/2023 LIPID PANEL [...] WILL NOT BE REPOR KIMI. Not Available [facility] (Lab) [address] [place], [address], 06/13/2023 19:28:43 06/13/19 24 06/13/2023 COMPR EHENS STAR METAB OLIC PANEL sodium 140 mmol/ L 137-14 5 Not Available [facility] (Lab) [address] [place], [address], 06/13/2023 19:28:47 06/13/19 24 06/13/2023 COMPR EHENS STAR METAB OLIC PANEL potassium 4.2 mmol/ L 3.5-5. 1 Not Available [facility] (Lab) [address] [place], [address], 06/13/2023 19:28:47 06/13/19 24 06/13/2023 COMPR EHENS STAR METAB OLIC PANEL chloride 102 mmol/ L 98-107 Not Available [facility] (Lab) [address] [place], [address], 06/13/2023 19:28:47 06/13/19 24 06/13/2023 COMPR EHENS STAR METAB OLIC PANEL carbon dioxide 32 mmol/ L 22-30 high Not Available [facility] (Lab) [address] [place], [address], 06/13/2023 19:28:47 06/13/19 24 06/13/2023 COMPR EHENS STAR METAB OLIC PANEL anion gap 10.2 mmol/ L 14-22 low Not Available [facility] (Lab) [address] [place], [address], 06/13/2023 19:28:47 06/13/19 24 06/13/2023 COMPR EHENS STAR METAB OLIC PANEL glucose 82 mg/dL 70-99 Not Available [facility] (Lab) [address] [place], [address], 06/13/2023 19:28:47 06/13/19 24 06/13/2023 COMPR EHENS STAR METAB OLIC PANEL BUN 21 mg/dL 8-19 high Not Available [facility] (Lab) [address] [place], [address], 06/13/2023 19:28:47 06/13/19 24 06/13/2023 COMPR EHENS STAR METAB OLIC PANEL creatinine 0.75 mg/dL 0.66-1 .25 Not Available [facility] (Lab) [address] [place], [address], 06/13/2023 19:28:47 06/13/19 24 06/13/2023 COMPR EHENS STAR METAB OLIC PANEL GFR >60 Refer ence Range : [place] ge GFR Healt hy Adult : >60 [...] calcu lator is avail able on the [facility] websi te: [email or web address] :[email or web address] rebeca/pr ofess ional s/kdo qi/gf r_cal culat or Not Available [facility] (Lab) [address] [place], [address], 06/13/2023 19:28:47 06/13/19 24 06/13/2023 COMPR EHENS STAR METAB OLIC PANEL alkaline phosphatase 100 U/L 38-126 Not Available [facility] (Lab) [address] [place], [address], 06/13/2023 19:28:47 06/13/19 24 06/13/2023 COMPR EHENS STAR METAB OLIC PANEL alanine aminotransfe rase 33 U/L 0-35 Not Available [facility] (Lab) [address] [place], [address], 06/13/2023 19:28:47 06/13/19 24 06/13/2023 COMPR EHENS STAR METAB OLIC PANEL aspartate aminotransfe rase 38 U/L 15-37 high Not Available [facility] (Lab) [address] [place], [address], 06/13/2023 19:28:47 06/13/19 24 06/13/2023 COMPR EHENS STAR METAB OLIC PANEL bilirubin, total 0.30 mg/dL 0.20-1 .30 Not Available [facility] (Lab) [address] [place], [address], 06/13/2023 19:28:47 06/13/19 24 06/13/2023 COMPR EHENS STAR METAB OLIC PANEL calcium 9.3 mg/dL 8.4-10 .2 Not Available [facility] (Lab) [address] [place], [address], 06/13/2023 19:28:47 06/13/19 24 06/13/2023 COMPR EHENS STAR METAB OLIC PANEL total protein 6.9 g/dL 6.3-8. 2 Not Available [facility] (Lab) [address] [place], [address], 06/13/2023 19:28:47 06/13/19 24 06/13/2023 COMPR EHENS STAR METAB OLIC PANEL albumin 4.3 g/dL 3.0-4. 4 Not Available [facility] (Lab) [address] [place], [address], 06/13/2023 19:28:47 06/13/19 24 06/13/2023 COMPR EHENS STAR METAB OLIC PANEL globulin 2.6 g/dL 2.6-4. 2 Not Available [facility] (Lab) [address] [place], [address], 06/13/2023 19:28:47 06/13/19 24 06/13/2023 COMPR EHENS STAR METAB OLIC PANEL A/G ratio 1.7 ratio 1.0-2. 0 Not Available [facility] (Lab) [address] [place], [address], 06/13/2023 19:28:47 06/13/19 24 06/13/2023 T3 FREE free T3 3.2 pg/mL 2.77-5 .27 Not Available [facility] (Lab) [address] [place], [address], 06/13/2023 19:48:14 06/13/19 24 06/13/2023 TSH thyroid-stim ulating hormone 4.820 uIU/m L 0.465- 4.680 high Not Available [facility] (Lab) [address] [place], [address], 06/13/2023 20:03:43 06/13/19 24 06/13/2023 T4 FREE free T4 1.03 NG/dL 0.78-2 .19 Not Available [facility] (Lab) [address] [place], [address], 06/13/2023 20:21:37 10/10/19 24 10/10/2023 CBC/C OMPLE TE BLD COUNT W/DIF F white blood cells 3.5 x10'3 /uL 4.2-10 .8 low Not Available [facility] (Lab) [address] [place], [address], 10/10/2023 12:38:35 10/10/19 24 10/10/2023 CBC/C OMPLE TE BLD COUNT W/DIF F red blood cells 5.10 x10'6 /uL 3.80-5 .20 Not Available [facility] (Lab) [address] [place], [address], 10/10/2023 12:38:35 10/10/19 24 10/10/2023 CBC/C OMPLE TE BLD COUNT W/DIF F hemoglobin 15.3 g/dL 12.0-1 5.6 Not Available [facility] (Lab) [address] [place], [address], 10/10/2023 12:38:35 10/10/19 24 10/10/2023 CBC/C OMPLE TE BLD COUNT W/DIF F hematocrit 47.3 % 35.7-4 5.7 high Not Available [facility] (Lab) [address] [place], [address], 10/10/2023 12:38:35 10/10/19 24 10/10/2023 CBC/C OMPLE TE BLD COUNT W/DIF F mean red cell volume 92.7 fL 82.0-9 9.0 Not Available [facility] (Lab) [address] [place], [address], 10/10/2023 12:38:35 10/10/19 24 10/10/2023 CBC/C OMPLE TE BLD COUNT W/DIF F mean red cell hemoglobin 30.0 pg 27.0-3 3.0 Not Available [facility] (Lab) [address] [place], [address], 10/10/2023 12:38:35 10/10/19 24 10/10/2023 CBC/C OMPLE TE BLD COUNT W/DIF F mean RBC HGB concentratio n 32.3 g/dL 31.0-3 6.0 Not Available [facility] (Lab) [address] [place], [address], 10/10/2023 12:38:35 10/10/19 24 10/10/2023 CBC/C OMPLE TE BLD COUNT W/DIF F red cell distribution width 13.2 % 11.8-1 5.5 Not Available [facility] (Lab) [address] [place], [address], 10/10/2023 12:38:35 10/10/19 24 10/10/2023 CBC/C OMPLE TE BLD COUNT W/DIF F platelets 198 x10'3 /uL 150-40 0 Not Available [facility] (Lab) [address] [place], [address], 10/10/2023 12:38:35 10/10/19 24 10/10/2023 CBC/C OMPLE TE BLD COUNT W/DIF F mean platelet volume 11.3 fL 9.0-12 .4 Not Available [facility] (Lab) [address] [place], [address], 10/10/2023 12:38:35 10/10/19 24 10/10/2023 CBC/C OMPLE TE BLD COUNT W/DIF F neutrophils 48.7 % 39.0-7 2.0 Not Available [facility] (Lab) [address] [place], [address], 10/10/2023 12:38:35 10/10/19 24 10/10/2023 CBC/C OMPLE TE BLD COUNT W/DIF F lymphocytes 32.5 % 16.0-4 7.0 Not Available [facility] (Lab) [address] [place], [address], 10/10/2023 12:38:35 10/10/19 24 10/10/2023 CBC/C OMPLE TE BLD COUNT W/DIF F monocytes 15.1 % 5.0-12 .0 high Not Available [facility] (Lab) [address] [place], [address], 10/10/2023 12:38:35 10/10/19 24 10/10/2023 CBC/C OMPLE TE BLD COUNT W/DIF F eosinophils 2.3 % 1.0-7. 0 Not Available [facility] (Lab) [address] [place], [address], 10/10/2023 12:38:35 10/10/19 24 10/10/2023 CBC/C OMPLE TE BLD COUNT W/DIF F basophils 1.4 % 0.0-2. 0 Not Available [facility] (Lab) [address] [place], [address], 10/10/2023 12:38:35 10/10/19 24 10/10/2023 CBC/C OMPLE TE BLD COUNT W/DIF F immature granulocytes 0.0 % 0.00-0 .50 Not Available [facility] (Lab) [address] [place], [address], 10/10/2023 12:38:35 10/10/19 24 10/10/2023 CBC/C OMPLE TE BLD COUNT W/DIF F neutrophils, absolute count 1.71 x10'3 /uL 1.5-8. 0 Not Available [facility] (Lab) [address] [place], [address], 10/10/2023 12:38:35 10/10/19 24 10/10/2023 CBC/C OMPLE TE BLD COUNT W/DIF F lymphocytes, absolute count 1.14 x10'3 /uL 1.07-3 .43 Not Available [facility] (Lab) [address] [place], [address], 10/10/2023 12:38:35 10/10/19 24 10/10/2023 CBC/C OMPLE TE BLD COUNT W/DIF F monocytes, absolute count 0.53 x10'3 /uL 0.29-0 .99 Not Available [facility] (Lab) [address] [place], [address], 10/10/2023 12:38:35 10/10/19 24 10/10/2023 CBC/C OMPLE TE BLD COUNT W/DIF F eosinophils, absolute count 0.08 x10'3 /uL 0.02-0 .53 Not Available [facility] (Lab) [address] [place], [address], 10/10/2023 12:38:35 10/10/19 24 10/10/2023 CBC/C OMPLE TE BLD COUNT W/DIF F basophils, absolute count 0.05 x10'3 /uL 0.01-0 .08 Not Available [facility] (Lab) [address] [place], [address], 10/10/2023 12:38:35 10/10/19 24 10/10/2023 CBC/C OMPLE TE BLD COUNT W/DIF F immature granulocytes ,absolute 0.00 x10'3 /uL 0.00-0 .05 Not Available [facility] (Lab) [address] [place], [address], 10/10/2023 12:38:35 10/10/19 24 10/10/2023 CBC/C OMPLE TE BLD COUNT W/DIF F nucleated red blood cells 0.0 % -0 Not Available [facility] (Lab) [address] [place], [address], 10/10/2023 12:38:35 10/10/19 24 10/10/2023 CBC/C OMPLE TE BLD COUNT W/DIF F NRBC# 0.00 x10'3 /uL Not Available [facility] (Lab) [address] [place], [address], 10/10/2023 12:38:35 10/10/19 24 10/10/2023 COMPR EHENS STAR METAB OLIC PANEL sodium 139 mmol/ L 137-14 5 Not Available [facility] (Lab) [address] [place], [address], 10/10/2023 17:48:37 10/10/19 24 10/10/2023 COMPR EHENS STAR METAB OLIC PANEL potassium 4.0 mmol/ L 3.5-5. 1 Not Available [facility] (Lab) [address] [place], [address], 10/10/2023 17:48:37 10/10/19 24 10/10/2023 COMPR EHENS STAR METAB OLIC PANEL chloride 104 mmol/ L 98-107 Not Available [facility] (Lab) [address] [place], [address], 10/10/2023 17:48:37 10/10/19 24 10/10/2023 COMPR EHENS STAR METAB OLIC PANEL carbon dioxide 29 mmol/ L 22-30 Not Available [facility] (Lab) [address] [place], [address], 10/10/2023 17:48:37 10/10/19 24 10/10/2023 COMPR EHENS STAR METAB OLIC PANEL anion gap 10.0 mmol/ L 14-22 low Not Available [facility] (Lab) [address] [place], [address], 10/10/2023 17:48:37 10/10/19 24 10/10/2023 COMPR EHENS STAR METAB OLIC PANEL glucose 76 mg/dL 70-99 Not Available [facility] (Lab) [address] [place], [address], 10/10/2023 17:48:37 10/10/19 24 10/10/2023 COMPR EHENS TSAR METAB OLIC PANEL BUN 16 mg/dL 8-19 Not Available [facility] (Lab) [address] [place], [address], 10/10/2023 17:48:37 10/10/19 24 10/10/2023 COMPR EHENS STAR METAB OLIC PANEL creatinine 0.73 mg/dL 0.66-1 .25 Not Available [facility] (Lab) [address] [place], [address], 10/10/2023 17:48:37 10/10/19 24 10/10/2023 COMPR EHENS STAR METAB OLIC PANEL GFR >60 Refer ence Range : [place] ge GFR Healt hy Adult : >60 [...] calcu lator is avail able on the [facility] websi te: https :[email or web address] rebeca/pr maress ional s/kdo qi/gf r_cal culat or Not Available [facility] (Lab) [address] [place], [address], 10/10/2023 17:48:37 10/10/19 24 10/10/2023 COMPR EHENS STAR METAB OLIC PANEL alkaline phosphatase 96 U/L 38-126 Not Available [facility] (Lab) [address] [place], [address], 10/10/2023 17:48:37 10/10/19 24 10/10/2023 COMPR EHENS STAR METAB OLIC PANEL alanine aminotransfe rase 30 U/L 0-35 Not Available [facility] (Lab) [address] [place], [address], 10/10/2023 17:48:37 10/10/19 24 10/10/2023 COMPR EHENS STAR METAB OLIC PANEL aspartate aminotransfe rase 39 U/L 15-37 high Not Available [facility] (Lab) [address] [place], [address], 10/10/2023 17:48:37 10/10/19 24 10/10/2023 COMPR EHENS STAR METAB OLIC PANEL bilirubin, total 0.60 mg/dL 0.20-1 .30 Not Available [facility] (Lab) [address] [place], [address], 10/10/2023 17:48:37 10/10/19 24 10/10/2023 COMPR EHENS STAR METAB OLIC PANEL calcium 9.4 mg/dL 8.4-10 .2 Not Available [facility] (Lab) [address] [place], [address], 10/10/2023 17:48:37 10/10/19 24 10/10/2023 COMPR EHENS STAR METAB OLIC PANEL total protein 6.7 g/dL 6.3-8. 2 Not Available [facility] (Lab) [address] [place], [address], 10/10/2023 17:48:37 10/10/19 24 10/10/2023 COMPR EHENS STAR METAB OLIC PANEL albumin 4.3 g/dL 3.0-4. 4 Not Available [facility] (Lab) [address] [place], [address], 10/10/2023 17:48:37 10/10/19 24 10/10/2023 COMPR EHENS STAR METAB OLIC PANEL globulin 2.4 g/dL 2.6-4. 2 low Not Available [facility] (Lab) [address] [place], [address], 10/10/2023 17:48:37 10/10/19 24 10/10/2023 COMPR EHENS STAR METAB OLIC PANEL A/G ratio 1.8 ratio 1.0-2. 0 Not Available [facility] (Lab) [address] [place], [address], 10/10/2023 17:48:37 10/10/19 24 10/10/2023 T4 FREE free T4 1.00 NG/dL 0.78-2 .19 Not Available [facility] (Lab) [address] [place], [address], 10/10/2023 17:51:25 10/10/19 24 10/10/2023 TSH thyroid-stim ulating hormone 3.440 uIU/m L 0.465- 4.680 Not Available [facility] (Lab) [address] [place], [address], 10/10/2023 17:53:54 10/10/19 24 10/10/2023 T3 TOTAL T3, total 1.290 NG/mL 0.970- 1.690 Not Available [facility] (Lab) [address] [place], [address], 10/10/2023 17:53:59 03/17/20 22 03/16/2022 MAMMO , bilat eral and US, breas t, bilat eral No observ ation record ed. [id number] [facility] [address], [place], [address], 07/20/2022 05:04:45 03/17/20 22 03/16/2022 MAMMO , diagn ostic , unila teral No observ ation record ed. [id number] [facility] [address], [place], [address], 07/20/2022 05:04:45 09/23/19 23 09/22/2022 MAMMO , scree nighat, digit al, bilat eral No observ ation record ed. [facility] [address], [place], [address], 12/07/2022 10:03:40 09/23/19 23 09/22/2022 MAMMO , scree nighat, digit al, bilat eral No observ ation record ed. [facility] [address], [place], [address], 12/07/2022 10:02:45 10/22/19 23 10/21/2022 MAMMO , scree nighat, digit al, bilat eral No observ ation record ed. [facility] [address], [place], [address], 12/07/2022 09:59:43 10/22/19 23 10/21/2022 MAMMO , brandone nighat, digit al, bilat eral No observ ation record ed. [facility] [address], [place], [address], 12/07/2022 09:59:36 12/23/19 23 audio gram + tympa nogra m No observ ation record ed. [email or web address] Not Available 2022 12:48:53 06/17/19 24 US, thyro id [facility] [address] [address] Patien t Name: DARIUSZ KEMP ion #: [id number] Sex: F : 1955 4 Dictat [...] > or = 1.5 cm Page 1 [facility] [address] [address] Patien t Name: DARIUSZ KEMP ion #: [id number] Sex: F : 1955 4 Dictat ed By: Amelia Cruz Attend ing Physic reji: CINDY CURRY [facility] Physic reji: NOELLE DE LA ROSA Exam [...] at 2023 07:02: 08 AM Page 2 [facility] ([facility] [address] [place], [address], 06/21/2023 11:10:32 Result Notes None recorded. Problems Name Problem SNOMED Code Status Onset Date Resolution Date Notes Provider Name and Address Organization Details Recorded Time Bilateral hearing loss 70504272 Active 2022 Not Available [facility] 4 06:06:45 Sensorineu ral hearing loss 48840637 Active 2022 Not Available [facility] 4 06:06:45 Neck pain 59253999 Active 2023 Not Available [facility] 4 06:06:45 Trochanter ic bursitis of right hip [id number] 00 Active 2023 Not Available [facility] 4 06:06:45 Tro[facility] ic bursitis of left hip 0298769809486 03 Active 2023 Not Available [facility] 4 06:06:45 Osteopenia 107818501 Active Not Available [facility] 4 06:06:45 Hypothyroi dism 96485631 Active Not Available [facility] 4 06:06:45 Hyperlipid emia 79987036 Active 2016 Not Available [facility] 4 06:06:45 COVID-19 725656436 Active 2021 Not Available [facility] 4 06:06:45 Problem Notes None recorded. Procedures Surgical History Date Name Laterality Status Provider Name and Address Organization Details Recorded Time 12/07/19 23 Medicare Wellness CPT Code, subsequent completed Stefania Hearn RN [place] - [facility] 12/06/2022 14:31:06 07/13/19 21 Most Recent Bone Density completed Not Available [facility] 07/20/2022 04:44:17 12/04/19 20 Date of Last Colonoscopy completed Not Available [facility] 07/20/2022 04:44:17 11/28/19 20 Colonoscopy completed Not Available [facility] 07/21/19 04:44:20 Shoulder completed Not Available [facility] 04:44:20 Cataract Surgery completed Not Available [facility] 07/20/2022 04:44:20 Remove tonsils and adenoids completed Shanice Goodman RN [place] - [facility] [employer] 12/22/2022 10:36:52 Imaging Results None recorded. Procedure Notes None recorded. Medical Equipment None Reported. Allergies Allergen ID Allergen Name Allergen Category Reaction Reaction Severity Criticality Documentation Date Start Date Code Code System Note Provider Name and Address Organization Details Recorded Time 8215 Keflex medicatio n Not available Not available Not available 07/20/2022 7 RxNorm Not Available [facility] 05:04:19 Medications Name Sig Start Date Stop [...] administe red by the provider 04/23 completed [place]: [id number] Not Available Not Available [...] administe red by the provider 04/23 completed [facility]: 0409- 4276- 17 Not Available Not Available Not Available Suprep Bowel Prep Kit 17.5 gram-3.13 gram-1.6 gram oral solution MIX AND DRINK UTD active Not Available Not Available No t Available Pazeo 0.7 % eye drops 10/23 completed Not Available Not Available Not Available Fluvirin 0627-9416 45 mcg (15 mcg x 3)/0.5 mL [...] Updated DateTime 4 166.37 cm 22.5 kg/m2 03170.1 5 g 97.6 [degF] 77 /min 98 % 98 % 151/74 mm[Hg] Leny Patel MA [facility] 4 11:01:20 Date Recorded Body mass index (BMI) Body height Heart rate Body temperature Body weight Systolic And Diastolic Provider Name and Address Organization Details Last Updated DateTime 2 22.1 kg/m2 166.37 cm 68 /min 96.6 [degF] 54347.9 7 g 140/80 mm[Hg] Not Available [facility] 3 04:50:37 Date Recorded Body height Body mass index (BMI) Body weight Body temperature Heart rate Oxygen saturation Oxygen saturation in Arterial blood by Pulse oximetry Systolic And Diastolic Provider Name and Address Organization Details Last Updated DateTime 3 166.37 cm 22.3 kg/m2 09410.5 6 g 97.8 [degF] 68 /min 98 % 98 % 140/80 mm[Hg] Bindu Navarro MA [facility] 3 14:20:00 Date Recorded Body height Body mass index (BMI) Body weight Body temperature Provider Name and Address Organization Details Last Updated DateTime 12/22/2022 166.37 cm 22.2 kg/m2 14060.13 g 97.7 [degF] Shanice Goodman RN [facility] [employer] [facility] 12/22/2022 10:35:17 Date Recorded Body mass index (BMI) Body height Heart rate Body temperature Body weight Systolic And Diastolic Provider Name and Address Organization Details Last Updated DateTime 2 22.3 kg/m2 166.37 cm 72 /min 98.2 [degF] 03061.5 6 g 124/78 mm[Hg] Not Available [facility] 04:50:37 Social History Question Answer Notes LastModified by Organization Details LastModified Time Tobacco Smoking Status Never Smoker Dayna nguyen, [place] - [facility] [employer] [facility] 12/22/2022 10:10:50 Do You Have An Advance Directive? Yes [id number] Information not available 07/20/2022 Are You Blind Or Do You Have Difficulty Seeing? No Information not available 12/22/2022 What Is Your Level Of Caffeine Consumption? Moderate [id number] Information not available 07/20/2022 How Much Tobacco Do You Chew? None [id number] Information not available 07/20/2022 In The 14 Days Before Symptom Onset, Have You Had Close Contact With A Laboratory-confi rmed COVID-19 While That Case Was Ill? No [...] Type Of Diet Are You Following? REGULAR [id number] Information not available 07/20/2022 Which Illicit Or Recreational Drugs Have You Used? None Information not available 12/22/2022 What Is The Highest Grade Or Level Of School You Have Completed Or The Highest Degree You Have Received? 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 12/06/2022 Information not available 12/22/2022 Do You Have Any Pets? Yes Information not available 12/22/2022 What Is Your Relationship Status? [id number] Information not available 07/20/2022 Do You Use Your Seat Belt Or Car Seat Routinely? Yes Information not available 12/22/2022 Do You Have Smoke And Carbon Monoxide Detectors In Your Home? Yes Information not available 12/22/2022 Are You Passively Exposed To Smoke? No Information not available 12/22/2022 Are There Any Smokers In Your House? No Information not available 12/22/2022 How Much Tobacco Do You Smoke? No [id number] Information not available 07/20/2022 What Types Of Sporting Activities Do You Participate In? None Information not available 12/22/2022 Do You Use Sunscreen Routinely? No Information not available 12/22/2022 Has Tobacco Cessation Counseling Been Provided? No Not Neeeded-ne paul Smoked Information not available 12/22/2022 How Many Years Have You Smoked Tobacco? 0 Information not available 12/22/2022 Have You Recently Traveled Abroad? No Information not available 12/22/2022 Do You Have Difficulty Walking Or Climbing Stairs? No Information not available 12/22/2022 Do You Have Any Dietary Restrictions? No Information not available 12/22/2022 Sex: Female Functional Status Question Answer Note LastModified by Organizat ion Details LastModified Time Do you use any illicit or recreational drugs? No Information not available 12/22/2022 Do you or have you ever used any other forms of tobacco or nicotine? No Information not available 12/22/2022 What is your level of alcohol consumption? None [id number] Information not available 07/20/2022 Do you or have you ever used smokeless tobacco? Never used smokeless tobacco [id number] Information not available 07/20/2022 Do you have transportation difficulties? No Information not available 12/22/2022 Are you able to walk? YESWOREST Information not available 12/22/2022 Do you have difficulty doing errands alone? No Information not available 12/22/2022 Are you able to care for yourself? Yes Information n ot available 12/22/2022 What is your occupation? retired Information not available 12/22/2022 Do you have difficulty dressing or bathing? No Information not available 12/22/2022 Do you or have you ever used e-cigarettes or vape? Never used electronic cigarettes Information not available 12/22/2022 What is your exercise level? Moderate [id number] Information not available 07/20/2022 Mental Status Question Answer Note LastModified by Organizat ion Details LastModified Time Do you feel stressed (tense, restless, nervous, or anxious, or unable to sleep at night)? [id number] Information not available 12/22/2022 Do you have difficulty concentrating, remembering or making decisions? No Information no t available 12/22/2022 Family History Relationship Description Onset Age of this Age Resolved Age Notes LastModified by Organization Details LastModified Time Father Ulcer [email or web address] Not available 10:10:48 Father Family history of malignant neoplasm [email or web address] Not available 2022 10:10:48 Mother Hypertensive disorder [id number] Not available 07/20/2022 04:44:28 Notes:NO ENT Medical History Condition Response BLINDNESS N NERVE DISEASE N RHEUMATIC FEVER N BLADDER PROBLEMS N KIDNEY STONES N MRSA N OTHER # 1 Y POLIO N LUNG DISEASE/DISORDER N RADIATION / CHEMOTHERAPY N COPD N Other # 2 N BLOOD DISEASES N EAR OR HEARING PROBLEMS N MUMPS N DEPRESSION (INCLUDING POST ) N BOWEL PROBLEMS N STROKE/TIA N ULCERS N BENIGN PROSTATIC [...] (RSV) vaccine, unspecified 3 completed Not Available [facility] 06/30/2023 06:06:46 COVID-19, mRNA, LNP-S, PF, 100 mcg/0.5mL dose or 50 mcg/0.25mL dose 1 completed Not Available [facility] 06/30/2023 06:06:46 Influenza, high-dose, quadrivalent, PF 1 completed Not Available [facility] 06/30/2023 06:06:46 COVID-19, mRNA, LNP-S, PF, 100 mcg/0.5mL dose or 50 mcg/0.25mL dose 1 completed Not Available [facility] 06/30/2023 06:06:46 COVID-19, mRNA, LNP-S, PF, 100 mcg/0.5mL dose or 50 mcg/0.25mL dose 1 completed Not Available [facility] 06/30/2023 06:06:46 Influenza, high-dose, quadrivalent, PF 0 completed Not Available [facility] 06/30/2023 06:06:46 Influenza, split virus, quadrivalent, preservative 9 completed Not Available [facility] 06/30/2023 06:06:46 Influenza, split virus, quadrivalent, preservative 8 completed Not Available [facility] 06/30/2023 06:06:46 Influenza, split virus, quadrivalent, preservative 7 completed Not Available [facility] 06/30/2023 06:06:46 Influenza, split virus, quadrivalent, preservative 6 completed Not Available [facility] 06/30/2023 06:06:46 COVID-19, mRNA, LNP-S, PF, 30 mcg/0.3 mL dose 2 completed Not Available [facility] 06/30/2023 06:06:46 Influenza, high-dose, quadrivalent, PF 2 completed Not Available [facility] 06/30/2023 06:06:46 Tdap 1 completed Not Available [facility] 06/30/2023 06:06:46 pneumococcal polysaccharide PPV23 9 completed Not Available [facility] 06/30/2023 06:06:46 Pneumococcal conjugate PCV 13 1 completed Not Available [facility] 06/30/2023 06:06:46 Past Encounters Encounter ID Performer Location Encounter Start Date Encounter Closed Date Diagnosis/Indication Diagnosis SNOMED-CT Code Diagnosis ICD10 Code Diagnosis Note [id number] Brando De La Rosa MD [facility] [place] [address] [place] [address] y , [place] [address] 10/22/2020 00:00:00 10/22/2020 21:19:33 [id number] Brando De La Rosa MD [facility] [place] [address] [place] [address] y , [place] [address] 05/06/2021 00:00:00 05/06/2021 19:38:00 [id number] Brando De La Rosa MD [facility] [place] [address] [place] [address] [place] [address] 10/28/2021 00:00:00 11/22/2021 12:50:17 [id number] Brando De La Rosa MD [facility] Internal [facility] [place] [address] [place] [address] y , [place] [address] 04/21/2022 00:00:00 04/21/2022 21:45:15 [id number] Brando De La Rosa MD [facility] Internal [facility] [place] [address] [place] [address] [place] [address] 12/06/2022 14:12:39 12/06/2022 14:57:05 Adult health examination [id number] Z00.00 Screening for disorder 731621314 Z13.9 Bilateral hearing loss 94955863 H91.93 Hyperlipidemia 48364587 E78.5 Hypothyroidism 52749139 E03.9 [id number] Oliver Burger MD [facility] [place] [address] [place] [address] 12/22/2022 09:57:09 12/22/2022 11:43:01 Sensorineural hearing loss 25662970 H90.5 [id number] Brando De La Rosa MD [facility] Internal [facility] [place] [address] [place] [address] y , [place] [address] 06/06/2023 10:41:09 06/06/2023 12:05:16 Hypothyroidism 89160478 E03.9 Hyperlipidemia 92696295 E78.5 Neck pain 41133747 M54.2 Long-term drug therapy 589357871 Z79.899 Trochanter ic bursitis of right hip [id number] 75844 M70.61 Health Concerns Section Related Observation LastModified by Organization Detai ls LastModified Time None Recorded Concern Status LastModified by Organization Details LastModified Time None Recorded Advance Directives Directive Y: Payers Insurance Date Sequence Insurance Name Policy Number Policy Venegas Covered Member ID Venegas Member ID Guarantor Name 06/13/2023 1 [employer] (MEDICARE REPLACEMENT/A DVANTAGE - PPO) [id number] Dariusz Lomax Cabazon [id number] Dariusz M Cabazon 06/13/2023 1 [facility] (MEDICARE REPLACEMENT/A DVANTAGE - PPO) [id number] Dariusz Lomax Cabazon [id number] Dariusz Lomax Cabazon Notes Date Note Type Note Provider Name and Address Organization Details Recorded Time 12/06/2022 text/html Chronic problems with the left ear. Dyslipidemia on follow low-fat diet. Hypothyroid heat or cold intolerance. Wellness concluded Brando De La Rosa MD [address] [employer] [place], [address], [employer] 12/09/2022 21:05:53 12/22/2022 text/html this patient has hearing loss and reports difficulty in crowded situations. She did have an audiogram which demonstrates mild bilateral sensorineural hearing loss. Her tympanograms were normal Oliver Burger MD [address] [employer] [place], [address], [employer] 12/22/2022 11:20:09 06/06/2023 text/html Trochanteric bur sitis worseHaving some vague discomfort in thyroid areaDyslipidemia trying to follow dietNo other complaints Brando De La Rosa MD [address] [employer] [place], [address], [employer] 06/06/2023 22:53:17 OBGyn Episode No OBEpisode recorded.
--- OUTSIDE RECORDS SUMMARY | 2024-12-04 08:09 | XMS_ITS | Data Portability ---
Author Organization [facility] Address [address] [place] [address] [place] [address] Care Team Providers Care Media Aid Name Role Phone BRANDO WHITE Primary Care Provider Assessment Encounter Date Assessment [...] May perform Diagnostic mammo if required. 2021 022 [facility], [address], [place], [address], 2 13:02:47 Medication Orders clobetasol 0.05 % topical ointment 2022 023 [facility] #[id number], [address] [place], [place], [id number], 3 10:54:49 tacrolimus 0.03 % topical ointment 2022 023 [facility] #40746, [address] [place], [place], [id number], 10:54:48 clobetasol 0.05 % topical ointment 2021 [facility] #04719, [address], [place], [id number], 10:52:12 tacrolimus 0.03 % topical ointment 2021 [facility] #66692, [address], [place], [id number], 10:52:10 Imvexxy Maintenance Pack 4 mcg vaginal insert [address] [place] [address] [facility], [address] [place], [place], [id number], 10:39:20 tacrolimus 0.03 % topical ointment 2021 [facility] #94197, [address], [place], [id number], 11:49:58 clobetasol 0.05 % topical ointment 2021 [facility] #19779, [address], [place], [id number], 11:49:59 Imvexxy Maintenance Pack 4 mcg vaginal insert 2021 [place] [address] [facility] #77356, [address], [place], [id number], 10:39:20 Patient TargetsNo targets recorded. Patient InstructionsNo instructions recorded. Reason for Referral None Reported. 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 [facility] [address], [place], [address], 03/23/2022 16:53:00 09/23/19 23 09/22/2022 MAMMO , scree nighat, bilat eral No observ ation record ed. [facility] [address], [place], [address], 11/08/2022 13:05:13 09/24/19 23 09/22/2022 MAMMO , scree nighat, bilat eral No observ ation record ed. [address] [facility] [address], [place], [address], 11/08/2022 13:05:23 12/07/19 24 12/07/2023 MAMMO , scree nighat, bilat eral No observ ation record ed. [facility] [address], [place], [address], 12/08/2023 12:13:53 Result Notes None recorded. 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: EHR Chroni c: N Practice ID: [id number] Billa ble Time: 11:15:00 AM LUPE Salazar - [facility] 05/13/202 2 11:27:48 Screening for malignant neoplasm of rectum Completed 201810/01/2021 Encounter for screening for malignant neoplasm of rectum;Rec orded Elsewhere: No Locatio n: [facility]: EHR Chroni c: N Practice ID: 0001 Billa ble Time: 10:00:00 AM Little nguyen [facility] [address] 11:27:[address] Concept Completed 201810/01/2021 Encntr for general adult medical exam w/o abnormal findings;R ecorded Elsewhere: No Locatio n: [facility]: EHR Chroni c: N Practice ID: 0001 Billa ble Time: 10:00:00 AM Little nguyen [facility] 2 11:27:48 Problem Notes None recorded. Procedures Surgical History Date Name Laterality Status Provider Name and Address Organization Details Recorded Time 09/23/19 23 Date of Last Mammogram completed Daniela Jimenez [facility] 02/23/2023 10:39:39 01/05/20 22 biopsy of vulva completed Janell Dahl [facility] 09/01/2022 09:50:59 01/04/20 22 Vulvar Biopsy completed Vernell Arambula [facility]- [address], [place], [address], [facility] 01/04/2022 10:31:24 05/22/19 20 Date of Last Colonoscopy completed Little Wahl [facility] 10/05/2021 10:11:11 07/02/19 19 Date of Last Pap Smear completed Daniela Jimenez [facility] 02/23/2023 10:39:34 05/22/19 14 Xcapsl ctrc rmvl cplx wo ecp completed Janell Dahl [facility] 09/01/2022 10:59:53 05/22/19 10 Shoulder joint surgery completed [facility] 09/01/2022 10:59:35 05/22/18 87 Abdominoplasty completed [facility] 09/01/2022 10:59:15 05/22/18 61 tonsilectomy/gela oids completed [facility] 09/01/2022 11:00:03 Imaging Results None recorded. Procedure Notes None recorded. Medical Equipment None Reported. Allergies Allergen ID Allergen Name Allergen Category Reaction Reaction Severity Criticality Documentation Date Start Date Code Code System Note Provider Name and Address Organization Details Recorded Time cephalexi n medicatio n Not available Not available Not available 10/05/20212230 RxNorm Little Wahl [facility] 10:08:09 Medications Name Sig Start Date [...] Prescrib ed Elsewher e: Yes [facility] By: haris rosario DateTime : 07/02/19 10:00:00 AM Not Available Not Available Not Available Tirosint 13 mcg capsule take 1 capsule by oral route every day 10/05 completed Prescrib ed Elsewher e: Yes Loca tion: Meghana burks [facility] M odify By: haris ninountaleksey DateTime : 07/02/19 10:00:00 AM Not Available Not Available Not Available Imvexxy Maintenan ce Pack 4 mcg vaginal insert Insert [...] Not Available Not Available Vitals Date Recorded Systolic And Diastolic Provider Name and Address Organization Details Last Updated DateTime 09/01/2022 132/82 mm[Hg] Vernell Arambula, [facility] [address], [place], [address], [facility] 09/01/2022 13:53:33 Date Recorded Body height Body mass index (BMI) Body weight Provider Name and Address Organization Details Last Updated DateTime 09/01/2022 165.1 cm 22.5 kg/m2 15166.97 g Janell Dahl [facility] 09/01/2022 10:53:46 Date Recorded Systolic And Diastolic Provider Name and Address Organization Details Last Updated DateTime 01/03/2022 122/82 mm[Hg] Vernell Arambula [facility] [address], [place], [address], [facility] 01/04/2022 10:38:39 Date Recorded Body height Body weight Body mass index (BMI) Provider Name and Address Organization Details Last Updated DateTime 01/03/2022 165.1 cm 17363.25 g 22.4 kg/m2 Little Wahl [facility] 01/03/2022 10:44:13 Date Recorded Body height Systolic And Diastolic Provider Name and Address Organization Details Last Updated DateTime 01/19/2022 165.1 cm 120/82 mm[Hg] Little Wahl [facility] 01/19/2022 11:08:54 Date Recorded Body height Body mass index (BMI) Body weight Systolic And Diastolic Provider Name and Address Organization Details Last Updated DateTime 02/23/2023 165.1 cm 22.5 kg/m2 73395.97 g 123/73 mm[Hg] Daniela Jimenez [facility] 02/23/2023 10:38:20 Date Recorded Body height Body weight Body mass index (BMI) Systolic And Diastolic Provider Name and Address Organization Details Last Updated DateTime 03/02/2022 165.1 cm 03624.25 g 22.4 kg/m2 128/70 mm[Hg] Little Wahl [facility] 03/02/2022 10:37:17 Social History Question Answer Notes LastModified by Organizat ion Details LastModified Time Tobacco Smoking Status Never Smoker Little Wahl [facility] 10/05/2021 10:14:11 Are You Blind Or Do You Have Difficulty Seeing? No Information n ot available 10/05/2021 What Is Your Level Of Caffeine Consumption? Occasional Information not available 10/05/2021 In The 14 Days Before Symptom Onset, Have You Had Close Contact With A Laboratory-confirm ed COVID-19 While That Case Was Ill? No [email or web address] Information n ot available 09/01/2022 In The 14 Days Before Symptom Onset, Have You Had Close Contact With A Person Who Is Under Investigation For COVID-19 While That Person Was Ill? No [email or web address] Information not available 09/01/2022 Have You Been To An Area Known To Be High Risk For COVID-19? No [email or web address] Information not available 09/01/2022 Are You Deaf Or Do You Have Serious Difficulty Hearing? No Information not available 10/05/2021 What Type Of Diet Are You Following? REGULAR Information n ot available 10/05/2021 Have You Ever Been Counseled For Unhealthy Alcohol Use? No [email or web address] Information not available 09/01/2022 Do You Use Your Seat Belt Or Car Seat Routinely? Yes Information not available 10/05/2021 Do You Have Smoke And Carbon Monoxide Detectors In Your Home? Yes Information not available 10/05/2021 Do You Use Sunscreen Routinely? Yes Information not available 10/05/2021 Has Tobacco Cessation Counseling Been Provided? No [email or web address] Information not available 09/01/2022 Do You Have Difficulty Walking Or Climbing Stairs? No Information not available 10/05/2021 Sex: Unknown Functional Status Question Answer Note LastModified by Organizat ion Details LastModified Time Do you use any illicit or recreational drugs? No Information not available 10/05/2021 Do you or have you ever used any other forms of tobacco or nicotine? No [email or web address] Information not available 09/01/2022 What is your level of alcohol consumption? Occasional Information not available 10/05/2021 Are you able to walk? YESWOREST Information not available 10/05/2021 Are you able to care for yourself? Yes Information n ot available 10/05/2021 Do you have difficulty dressing or bathing? No Information not available 10/05/2021 What is your exercise level? Occasional Information not available 10/05/2021 Mental Status Question Answer Note LastModified by Organization D etails LastModified Time Do you feel stressed (tense, restless, nervous, or anxious, or unable to sleep at night)? [id number] Information not available 10/05/2021 Family History Relationship Description Onset Age of [...] breast Not available 2021 10:13:39 Sister Malignant neoplasm of lung Not available 2021 10:13:46 Medical History Condition Response Allergies (Food, seasonal, environmental ) N Other N Breast Cancer N Drug/Latex Allergies/Reactions Y Blood Transfusion N Dermatologic Disorders N Lung Disease N Defects or Inherited Disease N Breast Problem N Gestational Diabetes N Hematologic disorders N Anesthesia Complications N History of STI N Deep Vein Thrombosis N Polycystic ovary syndrome N Anxiety Disorder N Autoimmune disease N Arthritis N Infertility N Polyps N Acid Reflux (GERD) N History of abnormal pap N Cancer N Stroke N Varicosities N Neurologic/Epilepsy Y Endometriosis Y High Cholesterol N Headaches N Fibromyalgia N Kidney Disease N Heart Problems N Kidney or Bladder Problems N Thyroid Problems Y GI Problems N Eating Disorder N Anemia N Art (IVF or FET) N Psychiatric Illness N Ovarian Cancer N Diabetes N Pulmonary (TB, Asthma) Y Hepatitis/Liver Disease N No Past Medical History N Eczema N Urinary Tract Infection N Abuse/Domestic Violence N Asthma N Trauma/Violence N Depression/ depression N Heart Disease N Pre-Eclampsia N Hypertension N Osteoporosis N Thrombophilias N Gynecological History Statement/Question Response Abnormal Pap [...] SNOMED-CT Code Diagnosis ICD10 Code Diagnosis Note [id number] Vernell Arambula [facility] [address] [address] 10/05/2021 09:31:14 10/05/2021 10:37:03 Gynecologic examination [id number] Z01.419 Take Calcium with Vitamin D 12-1500mg daily. Do monthly self breast exams. It is advised to get annual flu shot in the fall and she could obtain at [facility] or [facility]. If you haven't received the Tdap vaccine [...] call or respond to this email Pap/hpvUSP ST recommends against screening for cervical cancer in women older than 65yo, those who've had a hysterecto my for non-cancer indication s, & who have had adequate prior screening & are not otherwise at high risk for cervical cancer.STD Screen declinedGe netic Screen discussed & declinedCo elisabet Screen UTD PCPDexa Screen UTD PCPRoutine Labs MSD PCPMammo completed 2021-WN Vaginal dryness 05195691 N89.8 R23.8 Today we agreed to trial of topical imvexxy 4mcg on inner labia minora as there is a lot of irritation in this area from thinning skin due to postmenopa usal changes hypoestrog enic effects. Samples imvexxy 4mcg given to use topically at night with f/u in 2wks for vulva check [id number] [facility] [address],[place] [address] 10/19/2021 13:32:57 10/19/2021 14:31:42 Vaginal irritation 861785493 N89.8 Improvemen t of inner left labia [...] counseling and review of plan of care. [id number] Vernell Aramubla [facility] [address] [address] 12/21/2021 10:30:12 12/21/2021 11:54:07 Lesion of vulva 097322571 N90.89 Today we discussed another vulvar biopsy [...] counseling and review of plan of care. [id number] Vernell Arambula [facility] [address],[place] [address] 01/03/2022 10:20:47 01/04/2022 17:03:12 Lesion of vulva 472035224 N90.89 See procedure notes from today's Vulvar bx procedure. Will continue current regimen & await results to determine further steps in plan of care. Pre/post procedure instructio ns given with understand ing verbalized . [id number] Vernell Arambula [facility] [address],[place] [address] 01/19/2022 11:01:39 01/19/2022 12:23:13 Genital lichen planus 892779321 L43.9 Here today to review bx resultsSus [...] counseling and review of plan of care. [id number] Vernell Arambula [facility] [address] [address] 03/02/2022 10:13:15 03/02/2022 11:16:32 Genital lichen planus 635409167 L43.9 Vulvar med checkDoing extremely well on [...] counseling and review of plan of care. Tenderness of breast 552 58522 N64.4 Having some breast tenderness on left sideExam wnl except voiced tenderness upper outer quadrant of left breast sensitivit y/tenderne ss.Updated mammo 08/2021 wnlWill complete breast US & if needed may order diag mammo if required [id number] Vernell Arambula , [facility] [address],[place] [address] 09/01/2022 10:13:09 09/01/2022 14:23:35 Genital lichen planus 776207091 L43.9 Vulvar med check x 6mos Doing extremely well on current regimen which has relieved all her sx's of itching, burning, irritation in this area of concern confirmed to be lichen planus on Bx. We discussed maintenanc e therapy moving forward & instructclemente copeland were reviewed.S he will f/u in 1yr or prn for vulvar/med check. WWE q2yrs will contact for refills Time spent in visit is a total of 15 mins with at least 50% of visit consisting of counseling and review of plan of care. [id number] Vernell Arambula , [facility] [address],[place] [address] 02/23/2023 10:29:20 02/23/2023 11:04:48 Gynecologic examination 42102788 Z01.419 Take Calcium with Vitamin D 12-1500mg daily. Do monthly self breast exams. It is advised to get annual flu shot in the fall and she could obtain at [facility] or [facility] take care clinic. If you haven't received the [...] completed 2022 PCP Genital lichen planus 23 0065307 L43.9 Vulva lichen planus doing well.Not having [...] Recorded Advance Directives Directive None Recorded Payers Insurance Date Sequence Insurance Name Policy Number Policy Venegas Covered Member ID Venegas Member ID Guarantor Name 02/23/2023 2 [facility] (MEDICARE REPLACEMENT/ ADVANTAGE - PPO) [id number] Michaela M Hopland [id number] Michaela M Hopland 02/23/2023 1 [facility] (MEDICARE REPLACEMENT/ ADVANTAGE - PPO) [id number] Michaela M Hopland [id number] Michaela M Hopland 02/23/2023 1 [facility] (MEDICARE REPLACEMENT/ ADVANTAGE - PPO) [id number] Michaela M Hopland [id number] Michaela Lomax Hopland Notes Date Note Type Note Provider Name and Address Organization Details Recorded Time 01/03/2022 text/html Here today for updated Vulvar bx for vulvar lesion. [facility] [address], [place], [address], [facility] 01/04/2022 14:23:56 01/19/2022 text/html Here today to review vulvar bx results. Vernell Arambula [facility] [address], [place], [address], [facility] 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 [facility] [address], [place], [address], [facility] 03/02/2022 11:02:28 09/01/2022 text/html Here today for 6mos med check for lichen's planus. [facility] [address], [place], [address], [facility] 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 02/23/2023 11:01:33 OBGyn Episode Ob Episode Information Episode Created Date Number of Fetuses Patient Bloodtype Patient rh Status Prepregnancy Weight lbs Domestic Partner Domestic Partner Phone Father Name Delivery Crew Member Status 10/06/19 22 1 CLOSED Fetus Data First Name Last Name Admitted to NICU Weight (g) Sex Living Outcome Pediatric Complications Fetus ID Race Codes Race Delivery Type F Full Term [id number] Vaginal Delivery Barak Calculation Initial Barak Date [...] Domestic Partner Domestic Partner Phone Father Name Delivery Crew Member Status 09/02/19 23 1 CLOSED Fetus Data First Name Last Name Admitted to NICU Weight (g) Sex Living Outcome Pediatric Complications Fetus ID Race Codes Race Delivery Type , Spontane ous [id number] Barak Calculation Initial Barak Date Initial Exam [...] Domestic Partner Domestic Partner Phone Father Name Delivery Crew Member Status 10/06/19 22 1 CLOSED Fetus Data First Name Last Name Admitted to NICU Weight (g) Sex Living Outcome Pediatric Complications Fetus ID Race Codes Race Delivery Type F Full Term [id number] Vaginal Delivery Barak Calculation Initial Barak Date [...]
[2024-12-04 08:29] LABS: Hematocrit 45.7 % (37.0-47.0); Hemoglobin 14.6 g/dL (12.0-15.0); Immature Granulocyte Percent A 0.4 % (0-0.5); Lymphocytes Absolute Auto 1.23 K/mm3 (0.9-3.2); Mean Corpuscular HGB Conc 31.9 g/dl (32-36); Mean Corpuscular Hemoglobin 29.3 pg (26-34); Mean Corpuscular Volume 91.8 fl (80-100); Nucleated Red Blood Cells Absolute Auto 0.000 K/mm3 (0.0-0.012); Nucleated Red Blood Cells Perc 0.0 % (0.0-0.2); Platelet Count Result 193 k/mm3 (150-375); Red Blood Count 4.98 M/mm3 (4.2-5.4); White Blood Count 5.6 K/mm3 (4.5-10.0)
[2024-12-04 09:12] LABS: Alanine Aminotransferase 26 U/L (6-35); Albumin Level 4.3 g/dL (3.5-5.1); Alkaline Phosphatase 96 U/L (38-126); Anion Gap 5 mmol/L (4-12); Aspartate Amino Transferase 38 U/L (14-36); Bilirubin,Total 0.5 mg/dL (0.2-1.3); Blood Urea Nitrogen 14 mg/dL (7-17); Calcium 9.3 mg/dL (8.4-10.2); Carbon Dioxide 29 mmol/L (22-30); Chloride 104 mmol/L (98-107); Cholesterol 190 mg/dL (0-200); Estimated Glomerular Filt Rate > 60; Glucose 90 mg/dL (65-110); HDL Direct 71 mg/dL; Potassium 4.2 mmol/L (3.4-5.0); Sodium 138 mmol/L (137-145); Total Protein 7.1 g/dL (6.3-8.2); Triglycerides 106 mg/dL (<150)
[2024-12-04 09:47] LABS: Thyroid Stimulating Hormone 5.530 uIU/mL (0.465-4.680)
[2024-12-04 10:23] LABS: Free T3 3.23 pg/mL (2.45-5.93); Free T4 Free Thyroxine 1.04 ng/dL (0.78-2.19)
== END 2024-12-04 08:05 | disposition home or self-care (01) ==
LOC: ANHLAB 08:05
PROVIDERS: PCP Internal Medicine; Visit Provider Internal Medicine
DX: E78.5 Hyperlipidemia, unspecified (principal); E03.9 Hypothyroidism, unspecified
CPT/HCPCS: 36415; 80053; 80061; 84439; 84443; 84481; 85025

== ENCOUNTER 2024-12-12 10:17 | Outpatient (CLI) | payer MEDICARE, SELFPAY ==
--- NOTE | ~2024-12-12 | MM_ITS ---
EXAMINATION: MM screening walker BI w melina HISTORY: Screening TECHNIQUE: Craniocaudal and mediolateral oblique 3-D tomosynthesis images were obtained and synthetic 2-D images were generated. CAD analysis was submitted and interpreted. COMPARISON: Comparison to multiple prior studies sequentially, with oldest reviewed study dated 04/25. BREAST PARENCHYMAL COMPOSITION: There are scattered areas of fibroglandular density. FINDINGS: There is no evidence of suspicious mass, calcification, or architectural distortion to sug gest malignancy in either breast. IMPRESSION: 1. No mammographic evidence of malignancy. 2. Recommend routine screening mammography in one year. BI-RADS Category 1: Negative Reviewed, dictated and finalized at location B.
== END 2024-12-12 10:18 | disposition home or self-care (01) ==
LOC: MICIMG 10:18
PROVIDERS: PCP Internal Medicine; Visit Provider Internal Medicine
DX: Z12.31 Encounter for screening mammogram for malignant neoplasm of breast (principal)
CPT/HCPCS: 77063; 77067

== ENCOUNTER 2025-01-22 10:39 | Outpatient (CLI) | payer MEDICARE, SELFPAY ==
--- OUTSIDE RECORDS SUMMARY | 2023-09-29 05:00 | XMS_ITS | Continuity of Care Document ---
Author Organization [facility] Address [address] [address] Phone Care Team Providers Care Director Microbiology Name Role Phone Travis Masters MD Unavailable Unavailable Allergies, Adverse Reactions, Alerts Substance Reaction Status Criticality enalapril Active No Information PSEUDOEPHEDRINE HCL Active No Infor mation nabumetone Active No Information Medications Medication Instructions Dosage Effective Dates (start - stop) Status Comments GABAPENTIN (unknown strength) Not Available - Active CAROSPIR (unknown strength) Not Available - Active LOSARTAN POTASSIUM (unknown strength) Not Available - Active CALCIUM (unknown strength) Not Available - Active FISH OIL (unknown strength) Not Available - Active VITAMIN D3 (unknown strength) Not Available - Active CO Q-10 (unknown strength) Not Available - Active ASPIRIN (unknown strength) Not Available - Active ATORVASTATIN CALCIUM (unknown strength) Not Available - Active METFORMIN HCL (unknown strength) Not Available - Active Procedures Procedure Date Fundus Photography W/i&r Ophth Serv: Med Exam; Comp Est Ophth Serv: Med Exam; Interm E Medicare Standard Frame PAL FreeForm 1.60 Index PAL FreeForm 1.60 Index Tint Photochromatic Per Lens Anti-reflective Avance [facility] Trifoc Coalgate +/-4.00d, 0.12-2. 23 Trifoc Coalgate +/-4.00d, 0.12-2. 23 Progressive Lens, Per Lens Progressive Lens, Per Lens Tint Photochromatic Per Lens Anti-reflective Avance Lens, Poly Or Equal, Any Index 23 Postop F/u Visit Incld Global 3 Determ Refractive State Postop F/u Visit Incld [facility] 3 Postop F/u Visit Incld [facility] 3 Extracap Cat Rem W/IOL Ophth Biomet Part Cohernc Intr 23 Postop F/u Visit Incld [facility] 3 Postop F/u Visit Incld [facility] 3 Extracap Cat Rem W/IOL Ophth Biomet Part Cohernc Intr 23 Determ Refractive State Ophth Serv: Med Exam; Comp Est 23 Determ Refractive State Ophth Serv: Med Exam; Comp Est 21 Medicare Standard Frame PAL FreeForm 1.60 Index PAL FreeForm 1.60 Index Anti-reflective Avance Tint Photochromatic Per Lens Determ Refractive State Ophth Serv: Med Exam; Comp Est 19 <content ID='ProcedureDescri ption_37' xmlns='urn:[email or web address]-org:v3'>Visual Field Exam W/i&r; Exten</content> Ophth Serv: Med Exam; Comp Est 18 Determ Refractive State Ophth Serv: Med Exam; Comp Est 17 Deluxe Frame PAL Conventional 1.67 PAL Conventional 1.67 Anti-reflective Coating Per Lens, Premiu m Tint Photochromatic Per Lens Ophth Serv: Med Exam; Comp Est 14 Determ Refractive State <content ID='ProcedureDescri ption_48' xmlns='urn:[email or web address]-org:v3'>Visual Field Exam W/i&r; Exten</content> Ophth Serv: Med Exam; Comp Est 13 Ophth Serv: Med Exam; Interm E 12 <content ID='ProcedureDescri ption_51' xmlns='urn:hl7-org:v3'>Visual Field Exam W/i&r; Exten</content> Scanning; Posterior Segment Ophth Serv: Med Exam; Comp Est 12 Determ Refractive State Deluxe Frame Progressive High Index Tint Photochromatic Per Lens Anti-reflective Coating Per Lens, Premiu m Ophth Serv: Med Exam; Comp Est 11 Determ Refractive State Ophth Serv: Med Exam; Comp Est 10 Determ Refractive State Ophth Serv: Med Exam; Comp New 09 Determ Refractive State Advance Directives Directive Yes / No Effective Date File Name No Information Encounters Encounter Description Practice Location Reason(s) For Visit Diagnoses Date Provider Providers Copied on Encounter [facility], [address] [place] [address], [id number] , tel:[phone] [facility]) 6monthfup (chief complaint) Presence of intraocular lensType 2 diabetes mellitus without complications 4 Prabha Robles. [address] [place] [address], [id number] , [place]. [phone] Referring Provider: Travis Masters MD, [address] [place] [address], [address] . tel:[phone] [facility], [address] [place] [address], [id number] , tel:[phone] [facility]) IOL follow up (chief complaint) Presence of intraocular lens 3 Prabha Robles. [address] [place] [address], [id number] , [place]. tel:[phone] Referring Provider: Travis Masters MD, [address] [place] [address], [place], [address] . tel:[phone] [facility], [address] [place] [address], [place], [place], [id number] , [place] tel: [phone] [facility] ([place]) No Information 3 Prabha Robles. [address] [place] [address] 1, [place], [id number] , [place]. tel: [phone] Referring Provider: Travis Masters MD, [address] [place] [address], [place], [address] . tel:[phone] [facility], [address] [place] [address], [place], [place], [id number] , [place] tel: [phone] [facility] ([place]) No Information 3 Prabha Robles. [address] [place] [address], [place], [id number] , [place]. tel:[phone] Referring Provider: Travis Masters MD, [address] [place] [address], [place], [address] . tel:[phone] [facility], [address] [place] [address], [place], [place], [id number] , [place] tel:[phone] [facility] ([place]) Presence of intraocular lens 3 Prabha Robles. [address] [place] [address], [place], [id number] , [place]. tel:[phone] Referring Provider: Travis Masters MD, [address] [place] [address] 1, [place], [address] . tel:[phone] [facility], [address] [place] [address], [place], [id number] , [place] tel: [phone] [facility] ([place]) Presence of intraocular lens 3 Prabha Robles. [address] [place] [address] 1, [place], [id number] , [place]. tel: [phone] Referring Provider: Travis Masters MD, [address] [place] [address] 1, [place], [address] . tel:[phone] [facility], [facility] N [facility] [address] 1, [place], [place], [id number] , [place] tel: [phone] [facility] ([place]) Presence of intraocular lens 3 Prabha Robles. [address] [facility] 1, [place], [id number] , [place]. tel: [phone] Referring Provider: Travis Masters MD, [facility] N [facility] 1, [place], [address] . tel:[phone] [facility], [address] [place] [address] [address], [place], [place], [id number] , [place] tel: [phone] [facility] ([place]) No Information 3 Prabha Robles. [address] [facility] 1, [place], [id number] , [place]. tel: [phone] Referring Provider: Travis Masters MD, [address] [place] [address], [place], [address] . tel:[phone] [facility], [address] [place] [address] 1, [place], [id number] , [place] tel: [phone] [facility] ([place]) No Information 3 Prabha Robles. [facility] [address] [facility] 1, [place], [id number] , [place]. tel: [phone] Referring Provider: Travis Masters MD, [address] [place] [address], [place], [address] . tel:[phone] [facility], [address] [place] [address] 1, [place], [place], [id number] , [place] tel: [phone] [facility] ([place]) Presence of intraocular lens 3 Prabha Robles. [address] [place] [address], [place], [place], [id number] , [place]. tel: [phone] Referring Provider: Travis Masters MD, [address] [place] [address] 1, [place], [address] . tel:[phone] [facility], [facility] [address], [id number] , [place] tel: [phone] [facility] ([place]) Presence of intraocular lens 3 Prabha Robles. [address] [place] [address], [id number] , [place]. tel: [phone] Referring Provider: Travis Masters MD, [address] [place] [address], [place], [address] . tel:[phone] [facility], [address] [place] [address], [id number] , [place] tel: [phone] [facility] ([place]) No Information 3 Prabha Robles. [address] [place] [address], [id number] , [place]. tel: [phone] Referring Provider: Travis Masters MD, [address] [place] [address], [address] . tel:[phone] [facility], [address] [place] [address], [id number] , [place] tel: [phone] [facility] ([place]) Ultrasound (chief complaint) Combined forms of age-related cataract, left eye 3 Prabha Robles. [address] [place] [address], [id number] , [place]. tel:[phone] Referring Provider: Travis Masters MD, [address] [place] [address], [address] . tel:[phone] [facility], [address] [place] [address], [id number] , [place] tel:[phone] [facility]) Exam (chief complaint) Combined forms of age-related cataract, bilateralOptic atrophyType 2 diabetes mellitus without complicationsMiosis 3 Prabha Robles. [address] [place] [address], [id number] , [place]. tel:[phone] Referring Provider: Travis Masters MD, [address] [place] [address], [place], [address] . tel:[phone] [facility], [address] [place] [address], [id number] , [place] tel: [phone] [facility] ([place]) exam (chief complaint) Combined forms of age-related cataract, bilateralOptic atrophyType 2 diabetes mellitus without complications 1 Prabha Robles. [facility] [address] [place] [address], [place], [id number] , [place]. tel:[phone] Referring Provider: Travis Masters MD, [address] [place] [address], [place], [address] . tel:[phone] [facility], [address] [place] [address], [place], [id number] , [place] tel: [phone] [facility] ([place]) No Information 1 Prabha Robles. [address] [place] [address], [place], [place], [id number] , [place]. tel: [phone] Referring Provider: Travis Masters MD, [address] [place] [address], [place], [address] . tel:[phone] [facility], [address] [place] [address], [place], [place], [id number] , [place] tel: [phone] [facility]) DM exam (chief complaint) Type 2 diabetes mellitus without complicationsCombine d forms of age-related cataract, bilateralOptic atrophy 9 Prabha Robles. [address] [place] [address], [place], [place], [id number] , [place]. tel:[phone] Referring Provider: Travis Masters MD, [address] [place] [address], [place], [address] . tel:[phone] [facility], [address] [place] [address], [place], [place], [id number] , [place] tel:[phone] [facility] ([place]) exam (chief complaint) Type 2 diabetes mellitus without complicationsOptic atrophy September- 2-201 8 Prabha Rboles. [facility] [address] [place] [address], [place], [place], [id number] , [place]. tel:[phone] Referring Provider: Travis Masters MD, [address] [place] [address], [place], [address] . tel:[phone] [facility], [facility] [address] [place] [address], [place], [id number] , [place] tel:[phone] [facility] ([place]) routine exam (chief complaint) Type 2 diabetes mellitus without complicationsCombine d forms of age-related cataract, bilateralUnspecified disorder of visual pathways 7 Prabha Robles. [address] [place] [address], [id number] , [place]. tel: [phone] Referring Provider: Travis Masters MD, [address] [place] [address], [place], [address] . tel:[phone] [facility], [address] [place] [address], [id number] , [place] tel: [phone] [facility] ([place]) No Information Prabha Robles. [address] [place] [address], [id number] , [place]. tel: [phone] Referring Provider: Travis Masters MD, [address] [place] [address], [place], [address] . tel:[phone] [facility], [address] [place] [address], [id number] , [place] tel: [phone] [facility] ([place]) Diabetes Mellitus Type 2, UncomplicatedDiabete s Mellitus Type 2, UncomplicatedSenile Cataract NecOptic Atrophy Jan-0 4 Prabha Robles. [facility] N [address], [id number] , [place]. tel: [phone] [facility], [address] [place] [address], [place], [place], [id number] , [place] tel: [phone] [facility] ([place]) Optic AtrophyDiabetes Mellitus Type 2, UncomplicatedPost Subcap Senile Catar 3 Prabha Robles. [facility] N [address], [id number] , [place]. tel: [phone] [facility], [address] [place] [address], [id number] , [place] tel: [phone] [facility] ([place]) Visual Field Defect NosVisual Field Defect NosOptic Atrophy Sep- 0-201 2 Prabha Robles. [address] [address], [place], [place], [id number] , [place]. tel: [phone] [facility], [facility] [address] [place] [address], [place], [place], [id number] , [place] tel: [phone] [facility] ([place]) Diabetes Mellitus Type 2, UncomplicatedPost Subcap Senile CatarDiabetes Mellitus Type 2, UncomplicatedPost Subcap Senile CatarVisual Field Defect Nos 3-201 2 Prabha Robles. [address] [place] [address], [place], [place], [id number] , [place]. tel: [phone] [facility], [facility] [address] [place] [address], [place], [place], [id number] , [place] tel: [phone] [facility] ([place]) No Information 1 Prabha Robles. [address] [place] [address], [place], [id number] , [place]. tel: [phone] [facility], [address] [place] [address], [place], [place], [id number] , [place] tel: [phone] [facility] ([place]) Diabetes Uncompl Type IIOther Forms Of Migraine, W/out Mention Of Intractable Migraine W/out Mention Of Status Migrainosus 2- 1 Prabha Robles. [address] [place] [address], [place], [place], [id number] , [place]. tel: [phone] [facility], [address] [place] [address], [place], [place], [id number] , [place] tel: [phone] [facility] ([place]) Diabetes Uncompl Type II 1-201 0 Prabha Robles. [address], [id number] , [place]. tel: [phone] [facility], [address] [place] [address], [place], [place], [id number] , [place] tel: [phone] [facility] ([place]) Diabetes Uncompl Type IIPost Subcap Senile CatarOptic Nerve Disorder Nos 9200 9 Prabha Robles. [address], [facility] 1, [place], [place], [id number] , [place]. tel:[phone] Family History Family Member Type Diagnosis Age At Onset Grandfather (m) Problem (finding) glaucoma Mother Problem (finding) cataract Grandfather (m) Problem (finding) cataract Mother Problem (finding) glaucoma Payers Payer name Insurance type Covered democrat ID Mamta mccoy(s) Medicare MB [id number] [employer] Senior Supplemental Insurance [id number] Social History Type Description Quantity Date Captured Comments Alcohol Use Details Unknown Caffeine Use Details Unknown Tobacco Use Status Occasional cigarette smoker Smoking Status Heavy tobacco smoker Smoking Tobacco Use Details Cigarette: Years Used 15 Cigarette: 1 Packs per day, Pack Year: 15 Sex Female Chief Complaint And Reason For Visit From encounter dated '09/29/2023 10:00'. 6monthfup (chief complaint). Description: The 68 year old client presents for evaluation of 6 monthfup s/p IOL both eyes & Diabetic exam Ivizia PRNBS 117 a couple weeks ago per pt Reason For Referral Reason For Referral No Information Plan Of Treatment Date Type Action Status Goal Tobacco cessation counseling completed Patient Education Learning About Vision T ests completed Patient Education The Eye: Anatomy Sketch completed Patient Education Type 2 Diabetes: Care I nstructions completed Patient Education Cataracts: Care Instruc tions completed Patient Education Type 2 Diabetes: Care I nstructions completed Patient Education Diabetic Retinopathy: C are Instruction completed Patient Education Dilated Retinal Exam: A bout This Test completed History Of Present Illness Encounter Date Complaint History Of Prese nt Illness 6monthfup The 68 year old client presents for evaluation of 6 month fup s/p IOL both eyes & Diabetic exam Ivizia PRNBS 117 a couple weeks ago per pt IOL follow up The 67 year old client presents for IOL follow up both eyes.Patient denies any visual complaints since last visit Patient comments that she is still happy with vision Ultrasound Pt here today fo r Ultrasound Left eye ordered by Dr Masters for Cataract sx last visit Exam The 67 year old female presents for evaluation of Exam Dr. Masters requests dilation and any testing needed to R/O diabetic and hypertensive retinopathy. Did not take BSL today last A1C 7.3 approx 2 weeks ago.Pt with C/O left eye blurry for past 6 months ther was no high spike in BSL when blurry vision started Denies halos and glare but has difficulty driving. exam dilated exam of type II diabetes w/o complications, cataracts, optic atrophy. 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 She feels her reading RX may need to be a little stronger.Last chart notes states for Dr. Masters to check pupils prior to dilation.Her last A1C was 6.8 and her BS is stable. exam dilated exam/HVF of type II diabetes no complications, cataract, unspefied disorder of visual pathways. Pt states R eye x couple of months twitching.DM 2006BS 114no eye drops routine exam Established rosalia ent with a h/o NIDDM x 10 yrs, BS was 109 yesterday. She has had a progressive decrease in vision, Dist and near, since last visit. Some trouble with glare at night.No retinopathy noted on past exams. Functional Status Date Functional Assessmen t No Information Instructions Date Instruction Additional Infor chevy Impression/Plan Related to Prese nce of intraocular lens Impression/Plan - We disc'd there is no evidence of diabetic retinopathy, including no diabetic macular edema. We again emphasized the need for regular eye exams and adherence to the prescribed diabetic regimen to avoid ocular damage. Related to Type 2 diabetes mellitus without complications Return in in [address] Masters for Diabetes exam (77026). Related to Presence of intraocular lens Impression/Plan Related to Prese nce of intraocular lens Impression/Plan - See post op. R elated to Presence of intraocular lens Impression/Plan - see postop Rel ated to Presence of intraocular lens Impression/Plan - see pst op Rel ated to Presence of intraocular lens Impression/Plan - see post op sc reen Related to Presence of intraocular lens Impression/Plan - see post op sc reen Related to Presence of intraocular lens Impression/Plan - Di sc. there is an increased risk of poor result from cataract surgery due to high myopia Tolerable change in spectacles will not improve function. A surgery pre op was done today. Reviewed the risks and benefits of cataract surgery. Patient wants standard spherical IOL. Pt understands possible side effects of the iol such as but not limited to glare, halo's, need for glasses post op. Answered patients questions. Consent signed. History and Physical done. Reviewed appointments and surgical eye medications.Pt aware that the measurements can be off due to high myopia Pt aware she is at higher risk for RD and Retina tear if pt has and increase in floaters or flashes of light pt needs to call MAUREEN went over the premium IOL and standard IOL Explained to pt that she still may need glasses after sx and she could get halo and glare after the sx from the premium IOL Pt will go with the standard IOL set for distance Pt has some astigmatism that will not be corrected with the standard IOL and will need to be corrected in glasses to get best vision Pt is okay with wearing glasses after sx Related to Combined forms of age-related cataract, left eye Return as scheduled with Dr. Nora stoll Related to Combined forms of age-related cataract, bilateral Impression/Plan - ma y need rings Does not dilate well Related to Miosis Impression/Plan - We disc'd there is no evidence of diabetic retinopathy, including no diabetic macular edema. We again emphasized the need for regular eye exams and adherence to the prescribed diabetic regimen to avoid ocular damage. Related to Type 2 diabetes mellitus without complications Impression/Plan - Stable. 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 Masters Related to Combined forms of age-related cataract, bilateral Impression/Plan - Ca taract dx was discussed. Surgery should only be performed if the cataract is causing problems w/daily activities. Surgery is almost always elective. The pt was told surgery has risks and no guarantees of good vision could be made. Risks and benefits of surgical treatment were discussed and understood. Pt notices difficulty in driving . Disc. there is an increased risk of poor result from cataract surgery due to nerve damage. The patient has determined that they are no longer able to function adequately with the current visual function. Pt wants sx left eye. Order ophthalmic biometry. Pt to write list of questions/concerns for us to discuss prior to sx. Disc. there is an increased risk of poor result from cataract surgery due to miosis high myopia Cataract surgery is considered Complex due to: Malyugin rings. Related to Combined forms of age-related cataract, bilateral Return in 1 year devin Masters Full exam (42812). Related to Type 2 diabetes mellitus without complications Impression/Plan - Roque rgery not indicated will continue to monitor. Related to Combined forms of age-related cataract, bilateral Impression/Plan - Stable. 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 Masters Full exam (28719). Related to Type 2 diabetes mellitus without complications Impression/Plan - We disc'd there is no evidence of diabetic retinopathy, including no diabetic macular edema. We again emphasized the need for regular eye exams and adherence to the prescribed diabetic regimen to avoid ocular damage. Related to Type 2 diabetes mellitus without complications Return in 1 year devin Masters for Cataract exam (13845) , Refx (04438). Related to Combined forms of age-related cataract, bilateral Return in 1 year wit mirian Masters for H. Visual Field (01380) , Dilated exam (73013). 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 Related to Type 2 diabetes mellitus without complications Follow up - Return i n [address] Masters for Cataract exam (66353) , Refx (38400). Related to Combined forms of age-related cataract, bilateral Impression/Plan - We disc'd there is no evidence of diabetic retinopathy, including no diabetic macular edema. We again emphasized the need for regular eye exams and adherence to the prescribed diabetic regimen to avoid ocular damage. Related to Type 2 diabetes mellitus without complications Follow up - Return i n [address] Masters for Diabetes exam (10413) & Refx (88752). Related to Type 2 diabetes mellitus without complications Impression/Plan - Roque rgery not indicated will continue to monitor. Related to Combined forms of age-related cataract, bilateral Follow up - Return i n [address] Masters for H. Visual Field ([id number]) , Dilated exam (49194). Related to Optic atrophy Impression/Plan - St able, will get VF next visit. Related to Optic atrophy Return in 1 year wit mirian Masters for Full exam (78398). Related to Optic atrophy Return in 1 year wit mirian Masters for Diabetes exam (22403). Related to Type 2 diabetes mellitus without complications Impression/Plan - We disc'd there is no evidence of diabetic retinopathy, including no diabetic macular edema. We again emphasized the need for regular eye exams and adherence to the prescribed diabetic regimen to avoid ocular damage.DR MASTERS TO CHECK PUPILS PRIOR TO DILATION NEXT VISIT. Related to Type 2 diabetes mellitus without complications Follow up - Return i n [address] Masters for Diabetes exam ([id number]). Related to Type 2 diabetes mellitus without complications Impression/Plan - Un changed. HVF unchanged as well. Will continue to follow. Related to Optic atrophy Follow up - Return i n [address] Masters for Full exam (53614). Related to Optic atrophy Return in 1 year wit mirian Masters for Diabetes exam (08359) & Refx (91384) , H. Visual Field (08341). Related to Unspecified disorder of visual pathways Return in 1 year wit mirian Masters for Diabetes exam (33675) & Refx (83653). Related to Type 2 diabetes mellitus without complications Impression/Plan - Un changed on exam today, but will get VF next visit Related to Unspecified disorder of visual pathways Follow up - Return i n [address] Masters for Diabetes exam (58263) & Refx (50928) , H. Visual Field (28004). Related to Unspecified disorder of visual pathways Impression/Plan - No treatment is needed at this time, will monitor. Related to Combined forms of age-related cataract, bilateral Impression/Plan - We disc'd there is no evidence of diabetic retinopathy, including no diabetic macular edema. We again emphasized the need for regular eye exams and adherence to the prescribed diabetic regimen to avoid ocular damage. Related to Type 2 diabetes mellitus without complications Follow up - Return i n [address] Masters for Diabetes exam (71458) & Refx (17774). Related to Type 2 diabetes mellitus without complications - Return in [address] Masters H. Visual Field (14402) Related to Optic Atrophy Optic Atrophy Left - Unchanged.HVF was unchanged as well.Will continue to follow. Related to Optic Atrophy - Return in [address] Masters Diabetes exam (15010) & Refx (29500) Related to Diabetes Type II, No Retinopathy Diabetes Type II, No Retinopathy Bilateral - We disc'd there is no evidence of diabetic retinopathy, including no diabetic macular edema. We again emphasized the need for regular eye exams and adherence to the prescribed diabetic regimen to avoid ocular damage. Related to Diabetes Type II, No Retinopathy Cataract, Combined B ilateral - No treatment is needed at this time, will monitor. Surgery not indicated will continue to monitor. Will continue to observe condition and symptoms. Related to Cataract, Combined Optic Atrophy Left- - unchanged - ObservationDiscussed may have been congential . Related to Optic Atrophy - Return in [address] Masters Diabetes exam (50094) & Refx (15816). Related to Diabetes Type II, No Retinopathy Diabetes Type II, No Retinopathy Bilateral - We disc'd the natural history of diabetes and the potential for blindness. Even though there is no retinopathy or macular edema now, the pt needs to have regular eye exams, good control of blood sugar & blood pressure, & refrain from tobacco use. Related to Diabetes Type II, No Retinopathy - Return in [address] Masters Dilated exam (04394). Related to Cataract, PSC Cataract, PSC Bilate ral - No treatment is needed at this time, will monitor. Will continue to observe condition and symptoms. Related to Cataract, PSC - Return in [address] Masters Dilated exam (11237)./ HVF ( 99152 ) Related to Optic Atrophy Optic Atrophy Left - Explained to pt that there is no change in the left eye. The HVF and OCT are unchanged in the left eye still has defect in left eye. Will continue to follow. Related to Optic Atrophy - Return in [address] Masters for Full exam (86612) and Refx (81292). Related to Visual Field Defect, unspecified Visual Field Defect, unspecified Left Visual Field Defect, unspecified Left - Explained to pt that the HVF defect is the same as in 2006. Explained to pt that this is caused by the Optic Atrophy. Will continue to follow. Related to Visual Field Defect, unspecified - Return in [address] Masters for Full exam (62215) and Refx (47349). Related to Optic Atrophy - Return in [address] Masters for Pressure check (33445), H. Visual Field (54263) and G. Nerve Fiber (40217). Related to Visual Field Defect, unspecified Visual Field Defect, unspecified Left - Will repeat HVF and OCT in 6 mos. Explained to pt that the nerve appears the same but will do test to confirm no changes. Related to Visual Field Defect, unspecified - Return in [address] Masters for Diabetes exam (79987) & Refx (34467). Related to Diabetes Type II, No Retinopathy Diabetes Type II, No Retinopathy Bilateral - We disc'd there is no evidence of diabetic retinopathy, including no diabetic macular edema. We again emphasized the need for regular eye exams and adherence to the prescribed diabetic regimen to avoid ocular damage. Related to Diabetes Type II, No Retinopathy - Return in [address] Masters for Cataract exam (08336) and Refx (04966). Related to Cataract, PSC Cataract, PSC Bilate ral - Cataract dx was discussed. Surgery should only be performed if the cataract is causing problems w/daily activities. Surgery is almost always elective. The pt was told surgery has risks and no guarantees of good vision could be made. No treatment is needed at this time, will monitor. Will continue to observe condition and symptoms. Related to Cataract, PSC 346.80, Visual Migra ine, Both eyes - Discussed diagnosis in detail with patient. Explained to pt that this is caused from low blood flow to the brain. Will continue to observe condition and or symptoms. Patient instructed to call if condition gets worse. Related to Visual Migraine 250.00, Type II diab etes, No Retinopathy, Both eyes - We disc'd there is still no evidence of diabetic retinopathy, including no diabetic macular edema. We again emphasised the need for regular eye exams and adherence to the prescribed diabetic regimen to avoid ocular damage. Related to Type II diabetes, No Retinopathy - Return in 1 year f or Diabetes exam (41668) & Refx (21289), with Dr. Masters. Related to Type II diabetes, No Retinopathy - Return in 1 year f or Diabetes exam (68503) & Refx (17010), with Dr. Masters. Related to Type II diabetes, No Retinopathy 250.00, Type II diab etes, No Retinopathy, Both eyes - We discussed the natural history of diabetes and the potential for blindness. We discussed that even though there is no retinopathy and no macular edema now, the patient needs to have regular eye exams, good control of blood sugar and blood pressure, and refrain from tobacco use. Related to Type II diabetes, No Retinopathy 377.9, Optic Nerve D isorder Nos, Left eyeDiscussed with patient , may be congential, to Past record 1987 at [facility] - Last HVf was done at [facility] 1 year ago per pt . Will get HVF records from [facility] . Also get HVf tests & reports from Dr Maximo Disla at [facility] . Related to Optic Nerve Disorder Nos - Return in 1 year f or Diabetes exam (23283) & Refx (95175), with Dr. Masters. Related to Type II diabetes, No Retinopathy 250.00, Type II diab etes, No Retinopathy, Both eyes - We discussed the natural history of diabetes and the potential for blindness. We discussed that even though there is no retinopathy and no macular edema now, the patient needs to have regular eye exams, good control of blood sugar and blood pressure, and refrain from tobacco use. Related to Type II diabetes, No Retinopathy - Pt to call [facility] in 2 months to follow up on records Related to Optic Nerve Disorder Nos 366.14, Cataract, PS C, Both eyesTRACE - No treatment is required at this time. Will continue to observe condition and symptoms. Related to Cataract, PSC Assessments Type Assessment Date assessment Presence of intraocular lens September impression Presence of intraocular lens: Z9 6.1. assessment Type 2 diabetes mellitus without complications impression Type 2 diabetes mellitus without complications: E11.9. Patient Care Teams Name Effective Dates (start - stop) Status Members No Information
--- NOTE | ~2025-01-22 | DEXA_ITS ---
Bone Density Report Name: DARIUSZ NOVOA Age: 69 Sex: Female Ethnicity: White Date of : 1955 Indication: osteopenia; history of glucocorticoids; Referring Provider: BRANDO LEE Study: Bone densitometry was performed. Exam Date: January 22, 2025 Accession number: [id number] Bone Density: Region BMD T-score Z-score Classification AP Spine(L1-L4) 0.805 -2.2 -0.1 Osteopenia Femoral Neck (Left) 0.626 -2.0 -0.2 Osteopenia Total Hip (Left) 0.813 -1.1 0.5 Osteopenia Femoral Neck (Right) 0.640 -1.9 -0.1 Osteopenia Total Hip (Right) 0.856 -0.7 0.8 Normal Total Hip Mean 0.834 -0.9 0.7 Normal World Health Organization criteria for BMD impression classify patients as: Normal (T-score at or above -1.0), Osteopenia (T-score between -1.0 and -2.5), or Osteoporosis (T-score at or below -2.5). 10-year Fracture Risk(1): Major Osteoporotic Fracture 17% Hip Fracture 3.9% Reported Risk Factors: [place] (), Neck BMD=0.626, BMI=22.3, glucocorticoids (1) FRAX(R) Version 3.08. Fracture probability calculated for an untreated patient. Fracture probability may be lower if the patient has received treatment. Previous Exams: Region Exam Age BMD T-score BMD Change BMD Change Date g/cm2 vs Baseline vs Previous AP Spine (L1-L4) 01/22/2025 69 0.805 -2.2 -0.009 (-1.1%) -0.009 (-1.1%) 07/13/2020 65 0.815 -2.1 Total Hip(Left) 01/22/2025 69 0.813 -1.1 0.033 (4.2%)* 0.033 (4.2%)* 07/13/2020 65 0.780 -1.3 Total Hip(Right) 01/22/2025 69 0.856 -0.7 -0.005 (-0.6%) -0.005 (-0.6%) 07/13/2020 65 0.861 -0.7 *Denotes significance at 95% confidence level, LSC for AP Spine = 0.022 g/cm2, LSC for Total Hip = 0.027 g/cm2 Clinical Information Provided by Patient: Has taken Glucocorticoids Has used the following medications: Vitamin D, Calcium Patient maximum height was 66 Menopause Age: 53 Drinks caffeinated beverages Onset of menses at age 11 Number of children 2 Impression: The patient has low bone mass, based on the Total Spine T-score. The patient has an estimated ten-year risk of hip fracture of 3.9% and an estimated ten-year risk of major fracture of 17%, based on the WHO FRAX algorithm. The patient has risk factors, including: history of glucocorticoid therapy. No significant bone loss was observed. Discussion: BONE DENSITY IS LOW AT ONE OR MORE SKELETAL SITES. THE PATIENT'S BMD AND CLINICAL RISK FACTORS CONTRIBUTE TO THIS PATIENT'S INCREASED RISK OF FRACTURE. This patient's lowest T-score is low at one or more skeletal sites. It meets the World Health Organization's (WHO) criteria for ?low bone mass? (T-score between -1.0 and -2.5). The patient's 10-year risk of hip fracture as calculated by FRAX exceeds the threshold where pharmacological therapy is recommended by the National Osteoporosis Foundation (NOF). However, all treatment decisions require clinical judgment and consideration of individual patient factors, including patient preferences, comorbidities, previous drug use, risk factors not captured in the FRAX model (e.g., frailty, falls, vitamin D deficiency, increased bone turnover, interval significant decline in bone density) and possible under or overestimation of fracture risk by FRAX. The patient should follow a healthful lifestyle (good nutrition with adequate calcium and vitamin D, and appropriate weight-bearing exercise). Follow-Up: Consider a repeat BMD and Vertebral Fracture Assessment (VFA) exam in 2 years or sooner if medically necessary, to reassess this patient's status. Reported by: RILEY on 01/22/2025 11:18:00 AM. Reviewed, dictated and finalized at location A.
--- OUTSIDE RECORDS SUMMARY | 2025-01-22 12:07 | XMS_ITS | Clinical Summary ---
Author Organization [facility] [employer] Address [address] [place] [address] Care Team Providers Care Personal Shopper Name Role Phone Unavailable Primary Care Provider Unavailabl e Source Comments [facility] [employer],non-[facility] Affiliates and Associated Physician Practices is amultiple site organization consisting of ambulatory clinics and hospital sitesin [place], [place], [place] and [place]. This disclosure is being madepursuant to the Care Everywhere program and may not contain all information available regarding this patient. Last updated 18.[facility] [employer] Social History Tobacco Use Types Packs/Day Years [...]
== END 2025-01-22 10:40 | disposition home or self-care (01) ==
LOC: ANHFOHIMG 10:43
PROVIDERS: PCP Internal Medicine; Visit Provider Internal Medicine
DX: Z78.0 Asymptomatic menopausal state (principal); M85.88 Other specified disorders of bone density and structure, other site; M85.852 Other specified disorders of bone density and structure, left thigh; M85.851 Other specified disorders of bone density and structure, right thigh
CPT/HCPCS: 77080

== ENCOUNTER 2025-03-24 10:17 | Outpatient (CLI) | payer MEDICARE, SELFPAY ==
--- OUTSIDE RECORDS SUMMARY | 2025-03-07 05:20 | XMS_ITS | Continuity of Care Document ---
Author Organization [facility] Address [address] [address] Phone Care Team Providers Care Station Mechanic Name Role Phone Prabha MARRERO, Travis Unavailable Unavailable Allergies, Adverse Reactions, Alerts Substance Reaction Status Criticality latex Active No Information codeine Active No Information enalapril Active No Information PSEUDOEPHEDRINE HCL Active No Infor mation nabumetone Active No Information Medications Medication Instructions Dosage Effective Dates (start - stop) Status Comments FARXIGA (unknown strength) Not Available - Active CAROSPIR (unknown strength) Not Available - Active ASPIRIN (unknown strength) Not Available - Active CO Q-10 (unknown strength) Not Available - Active VITAMIN D3 (unknown strength) Not Available - Active CALCIUM (unknown strength) Not Available - Active LOSARTAN POTASSIUM (unknown strength) Not Available - Active ATORVASTATIN CALCIUM (unknown strength) Not Available - Active METFORMIN HCL (unknown strength) Not Available - Active GABAPENTIN (unknown strength) Not Available - No Longer Active FISH OIL (unknown strength) Not Available - No Longer Active Procedures Procedure Date Scanning; Posterior Segment <content ID='ProcedureDescri ption_1' xmlns='urn:hl7-org:v3'>Visual Field Exam W/i&r; Exten</content> Ophth Serv: Med Exam; Comp Est 25 Fundus Photography W/i&r Ophth Serv: Med Exam; Comp Est Ophth Serv: Med Exam; Interm E 23 Medicare Standard Frame PAL FreeForm 1.60 Index PAL FreeForm 1.60 Index Tint Photochromatic Per Lens Anti-reflective Avance Misc Optical Items Trif[employer] [place] +/-4.00d, 0.12-2. Trif[employer] [place] +/-4.00d, 0.12-2. Progressive Lens, Per Lens Progressive Lens, Per Lens Tint Photochromatic Per Lens Anti-reflective Avance Lens, Poly Or Equal, Any Index Postop F/u Visit [facility] 3 Determ Refractive State Postop F/u Visit [facility] 3 Postop F/u Visit [facility] 3 Extracap Cat Rem W/IOL Ophth Biomet Part Cohernc Intr 23 Postop F/u Visit [facility] 3 Postop F/u Visit [facility] 3 Extracap Cat Rem W/IOL Ophth Biomet Part Cohernc Intr 23 Determ Refractive State Ophth Serv: Med Exam; Comp Est 23 Determ Refractive State Ophth Serv: Med Exam; Comp Est 21 Medicare Standard Frame PAL FreeForm 1.60 Index PAL FreeForm 1.60 Index Anti-reflective Avance Tint Photochromatic Per Lens Determ Refractive State Ophth Serv: Med Exam; Comp Est 19 <content ID='ProcedureDescri ption_40' xmlns='urn:hl7-org:v3'>Visual Field Exam W/i&r; Exten</content> Ophth Serv: Med Exam; Comp Est May-02-20 18 Determ Refractive State Ophth Serv: Med Exam; Comp Est 17 Deluxe Frame PAL Conventional 1.67 PAL Conventional 1.67 Anti-reflective Coating Per Lens, Premiu m Tint Photochromatic Per Lens Ophth Serv: Med Exam; Comp Est 14 Determ Refractive State <content ID='ProcedureDescri ption_51' xmlns='urn:hl7-org:v3'>Visual Field Exam W/i&r; Exten</content> Ophth Serv: Med Exam; Comp Est 13 Ophth Serv: Med Exam; Interm E 12 <content ID='ProcedureDescri ption_54' xmlns='urn:hl7-org:v3'>Visual Field Exam W/i&r; Exten</content> Scanning; Posterior [...] Diagnoses Date Provider Providers Copied on Encounter [facility], [facility], [place], [place], [id number] , [place] tel:[phone] [facility] ([facility] Exam (chief complaint) Type 2 diabetes mellitus without complicationsPresenc e of intraocular lensDrusen (degenerative) of macula, right eyeOptic atrophy Oct-1 5 Prabha Robles. [address], [facility] 1, [place], [place], [id number] , [place]. tel:[phone] Referring Provider: Travis Masters MD, [address] [place] [address], [place], [address] . tel:[phone] [facility], [address] [place] [address], [id number] , [place] tel:[phone] [facility] ([facility] 6monthfup (chief complaint) Presence of intraocular lensType 2 diabetes mellitus without complications 4 Prabha Robles. [address] [place] [address], [place], [place], [id number] , [place]. tel:[phone] Referring Provider: Travis Masters MD, [address] [place] [address], [place], [address] . tel:[phone] [facility], [address] [place] [address], [id number] , [place] tel:[phone] [facility] ([facility] IOL follow up (chief complaint) Presence of intraocular lens 3 Prabha Robles. [address] [place] [address], [id number] , [place]. tel:[phone] Referring Provider: Travis Masters MD, [address] [place] [address], [place], [address] . tel:[phone] [facility], [address] [place] [address], [id number] , [place] tel:[phone] [facility] ([facility] No Information 3 Prabha Robles. [address] [place] [address], [id number] , [place]. tel:[phone] Referring Provider: Travis Masters MD, [address] [place] [address], [place], [address] . tel:[phone] [facility], [address] [place] [address], [id number] , [place] tel:[phone] [facility] ([facility] No Information Jan-0 3 Prabha Robles. [address] [place] [address], [id number] , [place]. tel: [phone] Referring Provider: Travis Masters MD, [address] [place] [address], [place], [address] . tel:[phone] [facility], [address] [place] [address], [place], [id number] , [place] tel: [phone] [facility] ([facility] Presence of intraocular lens 3 Prabha Robles. [address] [place] [address], [place], [id number] , [place]. tel: [phone] Referring Provider: Travis Masters MD, [address] [place] [address], [place], [address] . tel:[phone] [facility], [address] [place] [address], [place], [id number] , [place] tel: [phone] [facility] ([facility] Presence of intraocular lens 3 Prabha Robles. [address] [place] [address], [place], [place], [id number] , [place]. tel: [phone] Referring Provider: Travis Masters MD, [address] [place] [address], [place], [address] . tel:[phone] [facility], [address] [place] [address], [place], [place], [id number] , [place] tel: [phone] [facility] ([facility] Presence of intraocular lens 3 Prabha Robles. [address] [place] [address], [place], [place], [id number] , [place]. tel: [phone] Referring Provider: Travis Masters MD, [address] [place] [address], [place], [address] . tel:[phone] [facility], [address] [place] [address], [place], [id number] , [place] tel: [phone] [facility] ([facility] No Information 3 Prabha Robles. [address] [place] [address], [place], [place], [id number] , [place]. tel: [phone] Referring Provider: Travis Masters MD, [address] [place] [address], [place], [address] . tel:[phone] [facility], [address] [place] [address], [place], [place], [id number] , [place] tel: [phone] [facility] ([facility] No Information 3 Prabha Robles. [address] [place] [address], [place], [place], [id number] , [place]. tel: [phone] Referring Provider: Travis Masters MD, [address] [place] [address], [place], [address] . tel:[phone] [facility], [address] [place] [address], [place], [id number] , [place] tel: [phone] [facility] ([facility] Presence of intraocular lens 3 Prabha Robles. [address] [place] [address], [place], [id number] , [place]. tel: [phone] Referring Provider: Travis Masters MD, [address] [place] [address], [place], [address] . tel:[phone] [facility], [address] [place] [address], [place], [id number] , [place] tel: [phone] [facility] ([facility] Presence of intraocular lens 3 Prabha Robles. [address] [place] [address], [place], [place], [id number] , [place]. tel: [phone] Referring Provider: Travis Masters MD, [address] [place] [address], [place], [address] . tel:[phone] [facility], [address] [place] [address], [place], [place], [id number] , [place] tel: [phone] [facility] ([facility] No Information 3 Prabha Robles. [address] [place] [address], [place], [id number] , [place]. tel: [phone] Referring Provider: Travis Masters MD, [address] [place] [address], [place], [address] . tel:[phone] [facility], [address] [place] [address], [place], [place], [id number] , [place] tel: [phone] [facility] ([facility] Ultrasound (chief complaint) Combined forms of age-related cataract, left eye 3 Prabha Robles. [facility] [address] [address], [place], [place], [id number] , [place]. tel:[phone] Referring Provider: Travis Masters MD, [address] [place] [address], [place], [address] . tel:[phone] [facility], [address] [place] [address] 1, [place], [place], [id number] , [place] tel: [phone] [facility] ([facility] Exam (chief complaint) Combined forms of age-related cataract, bilateralOptic atrophyType 2 diabetes mellitus without complicationsMiosis 3 Prabha Robles. [facility] 1, [place], [place], [id number] , [place]. tel:[phone] Referring Provider: Travis Masters MD, [address] [place] [address], [place], [address] . tel:[phone] [facility], [address] [place] [address] 1, [place], [place], [id number] , [place] tel: [phone] [facility] ([facility] exam (chief complaint) Combined forms of age-related cataract, bilateralOptic atrophyType 2 diabetes mellitus without complications 1 Prabha Robles. [facility] 1, [place], [place], [id number] , [place]. tel:[phone] Referring Provider: Travis Masters MD, [address] [place] [address], [place], [address] . tel:[phone] [facility], [address] [place] [address] 1, [place], [id number] , [place] tel:[phone] [facility] ([facility] No Information 1 Prabha Robles. [address] [place] [address], [place], [place], [id number] , [place]. tel:[phone] Referring Provider: Travis Masters MD, [address] [place] [address], [place], [address] . tel:[phone] [facility], [address] [place] [address], [id number] , [place] tel:[phone] [facility]) DM exam (chief complaint) Type 2 diabetes mellitus without complicationsCombine d forms of age-related cataract, bilateralOptic atrophy 9 Prabha Robles. [address] [place] [address], [id number] , [place]. tel:[phone] Referring Provider: Travis Masters MD, [address] [place] [address], [place], [address] . tel:[phone] [facility], [address] [place] [address], [id number] , [place] tel:[phone] [facility] ([facility] exam (chief complaint) Type 2 diabetes mellitus without complicationsOptic atrophy 8 Prabha Robles. [address] [place] [address], [id number] , [place]. tel:[phone] Referring Provider: Travis Masters MD, [address] [place] [address], [place], [address] . tel:[phone] [facility], [address] [place] [address], [id number] , [place] [phone] [facility] ([facility] routine exam (chief complaint) Type 2 diabetes mellitus without complicationsCombine d forms of age-related cataract, bilateralUnspecified disorder of visual pathways 7 Prabha Robles. [address] [place] [address], [id number] , [place]. [phone] Referring Provider: Travis Masters MD, [address] [place] [address], [place], [address] . tel:[phone] [facility], [address] [place] [address], [id number] , [place] [phone] [facility]) No Information 7 Prabha Robles. [address] [place] [address], [id number] , [place]. [phone] Referring Provider: Travis Masters MD, [address] [place] [address], [place], [address] . tel:[phone] [facility], [address] [place] [address], [place], [id number] , [place] tel: [phone] [facility] ([facility] Diabetes Mellitus Type 2, UncomplicatedDiabete s Mellitus Type 2, UncomplicatedSenile Cataract NecOptic Atrophy Sep-0 4-201 4 Prabha Robles. [address] [place] [address], [place], [place], [id number] , [place]. tel: [phone] [facility], [address] [place] [address], [place], [place], [id number] , [place] tel: [phone] [facility] ([facility]) Optic AtrophyDiabetes Mellitus Type 2, UncomplicatedPost Subcap Senile Catar Dec-2 6- 3 Prabha Robles. [facility] [address], [id number] , [place]. tel: [phone] [facility], [address] [place] [address], [id number] , [place] tel: [phone] [facility] ([facility] Visual Field Defect NosVisual Field Defect NosOptic Atrophy Sep-2 0- 2 Prabha Robles. [facility] [address], [id number] , [place]. tel: [phone] [facility], [address] [place] [address], [id number] , [place] tel: [phone] [facility] ([facility] Diabetes Mellitus Type 2, UncomplicatedPost Subcap Senile CatarDiabetes Mellitus Type 2, UncomplicatedPost Subcap Senile CatarVisual Field Defect Nos Aug-2 3-201 2 Prabha Robles. [address] [place] [address], [place], [id number] , [place]. tel: [phone] [facility], [address] [place] [address], [id number] , [place] tel: [phone] [facility] ([facility] No Information Sep-1 6- 1 Prabha Robles. [facility] [address], [id number] , [place]. tel: [phone] [facility], [address] [address], [place], [place], [id number] , [place] tel: [phone] [facility] ([facility] Diabetes Uncompl Type IIOther Forms Of Migraine, W/out Mention Of Intractable Migraine W/out Mention Of Status Migrainosus 1 Prabha Robles. [address] [address], [place], [place], [id number] , [place]. tel: [phone] [facility], [facility] [address] [place] [address], [place], [place], [id number] , [place] tel: [phone] [facility] ([facility] Diabetes Uncompl Type II 0 Prabha Robles. [address], [id number] , [place]. tel: [phone] [facility], [facility] [address], [id number] , [place] tel: [phone] [facility] ([facility]) Diabetes Uncompl Type IIPost Subcap Senile CatarOptic Nerve Disorder Nos 200 9 Prabha Robles. [address] [address], [place], [place], [id number] , [place]. tel: [phone] Family History Family Member Type Diagnosis Age At Onset Grandfather (m) Problem (finding) glaucoma Mother Problem (finding) cataract Grandfather (m) Problem (finding) cataract Mother Problem (finding) glaucoma Payers Payer name Insurance type Covered republican ID Mamta mccoy(s) Medicare [id number] [employer] [facility] Supplemental Insurance [id number] Social History Type Description Quantity Date Captured Comments Alcohol Use Details Unknown Caffeine Use Details Unknown Tobacco Use Status Current non-smoker Smoking Status Never smoker Non-Smoking Tobacco Use Details : No Details Available : No Details Available Sex Female Chief Complaint And Reason For Visit From encounter dated '03/07/2025 11:20'. Exam (chief complaint). Description: pt presents for Exam to evaluate Diabetes pt states va stable ,no new concerns as of today's visit using Ivizia ART PRN BSL 127 this AM A1C 6.4 done a month ago VF GOCT and Optos done today per 's requestMay 2024 Lumbar Lamenecoty L3 & L 2024 Complete Left hip replacement Reason For Referral Reason For Referral No Information Plan Of Treatment Date Type Action Status Goal Tobacco cessation counseling completed Appointment Michaela Enciso BOOKED Appointment Michaela Enciso BOOKED Patient Education Learning About Vision T ests completed Patient Education Learning About Vision T [...] Date Complaint History Of Prese nt Illness Exam pt presents for Exam to evaluate Diabetes pt states va stable ,no new concerns as of today's visit using Ivizia ART PRN BSL 127 this AM A1C 6.4 done a month ago VF GOCT and Optos done today per 's requestMay 2024 Lumbar Lamenecoty L3 & L 2024 Complete Left hip replacement 6monthfup The 68 year old client presents [...] Instructions Date Instruction Additional Infor chevy Impression/Plan - We disc'd there is no evidence of diabetic retinopathy, including no diabetic macular edema. We again emphasized the need for regular eye exams and adherence to the prescribed diabetic regimen to avoid ocular damage. Related to Type 2 diabetes mellitus without complications Impression/Plan Related to Prese nce of intraocular lens Impression/Plan Related to Dinah watts (degenerative) of macula, right eye Impression/Plan Related to Prese nce of intraocular [...] s with Dr. Masters for Diabetes exam (81686). Related to Presence of intraocular lens Impression/Plan [...] in 1 year devin Masters Full exam (86186). Related to Type 2 diabetes mellitus without [...] [address] Masters Full exam (95052). Related to Type 2 diabetes mellitus without complications Impression/Plan - Stable. 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 Related to Combined forms of age-related cataract, bilateral Return in 1 year wit mirian Masters for Cataract exam (33196) , Refx (12763). Related to Combined forms of age-related cataract, bilateral Return in 1 year wit mirian Masters for H. Visual Field (36462) , Dilated exam (19021). Related to Optic atrophy Return in 1 year wit mirian Masters for Diabetes exam (61624) & Refx (79192). Related to Type 2 diabetes mellitus without complications Follow up - Return i n [address] Masters for Cataract exam (93142) , Refx (98758). Related to Combined forms of age-related cataract, bilateral Follow up - Return i n [address] Masters for Diabetes exam (55421) & Refx (40257). Related to Type 2 diabetes mellitus without [...] with Dr. Masters for H. Visual Field (76215) , Dilated exam (75142). Related to Optic atrophy Impression/Plan - St able, will get VF next visit. Related to Optic atrophy Return in 1 year wit mirian Masters for Full exam (87626). Related to Optic atrophy Return in 1 year devin Masters for Diabetes exam (01070). Related to Type 2 diabetes mellitus without [...] year with Dr. Masters for Diabetes exam (72166). Related to Type 2 diabetes mellitus without complications Impression/Plan - Un changed. HVF unchanged as well. Will continue to follow. Related to Optic atrophy Follow up - Return i n [address] Masters for Full exam (95603). Related to Optic atrophy Return in 1 year wit mirian Masters for Diabetes exam (49327) & Refx (93412) , H. Visual Field (74605). Related to Unspecified disorder of visual pathways Return in [address] Masters for Diabetes exam (63403) & Refx (84023). Related to Type 2 diabetes mellitus without complications Impression/Plan - Un changed on exam today, but will get VF next visit Related to Unspecified disorder of visual pathways Follow up - Return i n [address] Masters for Diabetes exam (81357) & Refx (69174) , H. Visual Field (93400). Related to Unspecified disorder of visual pathways [...] year with Dr. Masters for Diabetes exam (57081) & Refx (53090). Related to Type 2 diabetes mellitus without complications - Return in [address] Masters H. Visual Field (03040) Related to Optic Atrophy Optic Atrophy Left - Unchanged.HVF was unchanged as well.Will continue to follow. Related to Optic Atrophy - Return in [address] Masters Diabetes exam (13731) & Refx (60813) Related to Diabetes Type II, No Retinopathy [...] condition and symptoms. Related to Cataract, Combined - Return in [address] Masters Diabetes exam (08104) & Refx (21990). Related to Diabetes Type II, No Retinopathy [...] year w ith Dr. Masters Dilated exam (32454). Related to Cataract, PSC Cataract, PSC Bilate ral - No treatment is needed at this time, will monitor. Will continue to observe condition and symptoms. Related to Cataract, PSC Optic Atrophy Left- - unchanged - ObservationDiscussed may have been congential . Related to Optic Atrophy - Return in [address] Masters Dilated exam (05558)./ HVF ( 14463 ) Related to Optic Atrophy - Return in [address] Masters for Full exam (91240) and Refx (96447). Related to Optic Atrophy Optic Atrophy Left - Explained to pt that there is no change in the left eye. The HVF and OCT are unchanged in the left eye still has defect in left eye. Will continue to follow. Related to Optic Atrophy - Return in [address] Masters for Full exam (01537) and Refx (75656). Related to Visual Field Defect, unspecified Visual Field Defect, unspecified Left Visual Field Defect, unspecified Left - Explained to pt that the HVF defect is the same as in 2006. Explained to pt that this is caused by the Optic Atrophy. Will continue to follow. Related to Visual Field Defect, unspecified Cataract, PSC Bilate ral - Cataract dx [...] to Cataract, PSC - Return in [address] Masters for Pressure check (43452), H. Visual Field (36127) and G. Nerve Fiber (54035). Related to Visual Field Defect, unspecified Visual Field Defect, unspecified Left - Will repeat HVF and OCT in 6 mos. Explained to pt that the nerve appears the same but will do test to confirm no changes. Related to Visual Field Defect, unspecified - Return in [address] Masters for Diabetes exam (16229) & Refx (95509). Related to Diabetes Type II, No Retinopathy [...] w ith Dr. Masters for Cataract exam (56100) and Refx (92831). Related to Cataract, PSC 250.00, Type II diab etes, No Retinopathy, Both eyes - We disc'd there is still no evidence of diabetic retinopathy, including no diabetic macular edema. We again emphasised the need for regular eye exams and adherence to the prescribed diabetic regimen to avoid ocular damage. Related to Type II diabetes, No Retinopathy 346.80, Visual Migra ine, Both eyes - Discussed diagnosis in detail with patient. Explained to pt that this is caused from low blood flow to the brain. Will continue to observe condition and or symptoms. Patient instructed to call if condition gets worse. Related to Visual Migraine - Return in 1 year f or Diabetes exam (63615) & Refx (41027), with Dr. Masters. Related to Type II [...] in 1 year f or Diabetes exam (65509) & Refx (65010), with Dr. Masters. Related to Type II diabetes, No Retinopathy 377.9, Optic Nerve D isorder Nos, Left eyeDiscussed with patient , may be congential, to Past record 1987 at [facility] - Last HVf was done at [facility] 1 year ago per pt . Will get HVF records from [facility] . Also get HVf tests & reports from Dr Maximo Disla at [facility] . Related to Optic Nerve Disorder Nos - Return in 1 year f or Diabetes exam (63272) & Refx (76856), with Dr. Masters. Related to Type II [...] Cataract, PSC Assessments Type Assessment Date assessment Type 2 diabetes mellitus without complications impression Type 2 diabetes mellitus without complications: E11.9. assessment Presence of intraocular lens Feb impression Presence of intraocular lens: Z9 6.1. assessment Drusen (degenerative) of macula, right eye impression Drusen (degenerative) of macula, right eye: H35.361 assessment Optic atrophy impression Optic atrophy: H47.20. 25 Patient Care Teams Name Effective Dates (start - stop) Status Members No Information
--- OUTSIDE RECORDS SUMMARY | 2025-03-24 11:21 | XMS_ITS | Clinical Summary ---
Author Organization [facility] Address [address] [place] [address] Care Team Providers Care Hooker Laster Name Role Phone Unavailable Primary Care Provider Unavailabl e Source Comments [facility],non-[facility] Affiliates and Associated Physician Practices is amultiple site organization consisting of ambulatory clinics and hospital sitesin [place], [place], [place] and [place]. This disclosure is being madepursuant to the Care Everywhere program and may not contain all information available regarding this patient. Last updated 18.[facility] Social History Tobacco Use Types Packs/Day Years [...] 2004 ZOSTER VACCINE (1 of 2) 2004 DEPRESSION SCREENING 05/22/2024 COVID-19 VACCINE (1 - 2023-2 5 season) 2025 INFLUENZA VACCINE (#1) 2025 Respiratory Syncytial Virus [...]
--- OUTSIDE RECORDS SUMMARY | 2025-03-24 11:21 | XMS_ITS | Data Portability ---
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 2021 022 [facility], [address], [place], [address], 2 13:02:47 Medication Orders clobetasol 0.05 % topical ointment 2022 023 [facility][id number], [address] [place], [place], [id number], 3 10:54:49 tacrolimus 0.03 % topical ointment 2022 023 [facility] #18274, [address] [place], [place], [id number], 10:54:48 clobetasol 0.05 % topical ointment 2021 [facility] #76864, [address], [place], [id number], 10:52:12 tacrolimus 0.03 % topical ointment 2021 [facility] #77940, [address], [place], [id number], 10:52:10 Imvexxy Maintenance Pack 4 mcg vaginal insert 2021 [place] [address] [facility], [address], [place], [id number], 10:39:20 tacrolimus 0.03 % topical ointment 2021 [facility] #13038, [address], [place], [id number], 11:49:58 clobetasol 0.05 % topical ointment 2021 [facility] #50351, [address], [place], [id number], 11:49:59 Imvexxy Maintenance Pack 4 mcg vaginal insert 2021 [place] [address] [facility] #39471, [address], [place], [id number], 10:39:20 Patient TargetsNo targets recorded. Patient InstructionsNo instructions recorded. Reason for Referral None Reported. Results Created Date Observation Date Name Description Value Unit Range Abnormal Flag Note LastModifiedBy Organization Detail LastModifiedTime 01/04/20 22 01/03/2022 SURGI CARMELLA PATHO LOGY surgical pathology SEE RESULT S BELOW CASE REPOR T: Surgi carmella Patho logy Repor t Case: [id number] Autho bette tellez Provi jimbo: Kingsley ronquillo , Lexi Hooks cted: 01/03 1339 RN MDS Order ing Locat ion: [place] Patho logy [...] ed by Cyndi Bay on Not Available [facility] [address], [place], [address], 01/05/2022 12:49:23 03/17/20 22 03/16/2022 US, breas t, unila teral No observ ation record ed. [facility] [address], [place], [address], 03/23/2022 16:53:00 09/23/19 23 09/22/2022 MAMMO , scree nighat, bilat eral No observ ation record ed. [facility] [address], [place], [address], 11/08/2022 13:05:13 09/24/19 23 09/22/2022 MAMMO , scree nighat, bilat eral No observ ation record ed. [address] [facility] [address], [place], [address], 11/08/2022 13:05:23 12/07/19 24 12/07/2023 MAMMO , scree nighat, bilat eral No observ ation record ed. [facility] [address], [place], [address], 12/08/2023 12:13:53 Result Notes None recorded. Problems Name Problem SNOMED Code Status Onset Date Resolution Date Notes Provider Name and Address Organization Details Recorded Time Screening for malignant neoplasm of rectum Completed 201810/01/2021 Encounter for screening for malignant neoplasm of rectum;Rec orded Elsewhere: No [facility]atio [facility]: EHR Chroni c: N Practice ID: [id number] Billa ble Time: 10:00:00 AM LUPE Salazar - [facility] 11:27:[address] Concept Completed 201810/01/2021 Encntr for general adult medical exam w/o abnormal findings;R ecorded Elsewhere: No Locatio [facility]: [facility]: EHR Chroni c: N Practice ID: 0001 Billa ble Time: 10:00:00 AM Little nguyen [facility] 11:27:[address] Concept Completed 201910/01/2021 Encntr for upper doubler exam (general) (routine) w/o abn findings;R ecorded Elsewhere: No Locatio [facility]: [facility]: EHR Chroni c: N Practice ID: 0001 Billa ble Time: 11:15:00 AM Little Wahl [facility] 11:27:48 Problem Notes None recorded. Procedures Surgical History Date Name Laterality Status Provider Name and Address Organization Details Recorded Time 09/23/19 23 Date of Last Mammogram completed Daniela Jimenez [facility] 02/23/2023 10:39:39 01/05/20 22 biopsy of vulva completed Janell Dahl [facility] 09/01/2022 09:50:59 01/04/20 22 Vulvar Biopsy completed Vernell Arambula [facility]- [address], [place], [address], [facility] 01/04/2022 10:31:24 05/22/19 20 Date of Last Colonoscopy completed Little Wahl [facility] 10/05/2021 10:11:11 07/02/19 19 Date of Last Pap Smear completed Daniela Jimenez [facility] 02/23/2023 10:39:34 05/22/19 14 Xcapsl ctrc rmvl cplx wo ecp completed Janell Dahl [facility] 09/01/2022 10:59:53 05/22/19 10 Shoulder joint surgery completed [facility] 09/01/2022 10:59:35 05/22/18 87 Abdominoplasty completed [facility] 09/01/2022 10:59:15 05/22/18 61 tonsilectomy/gela oids completed [facility] 09/01/2022 11:00:03 Imaging Results None recorded. Procedure Notes None recorded. Medical Equipment None Reported. Allergies Allergen ID Allergen Name Allergen Category Reaction Reaction Severity Criticality Documentation Date Start Date Code Code System Note Provider Name and Address Organization Details Recorded Time cephalexi n medicatio n Not available Not available Not available 10/05/20212230 RxNorm Little Wahl [facility] 10:08:09 Medications Name Sig Start Date [...] Prescrib ed Elsewher e: Yes [facility]: haris rosario DateTime : 07/02/19 10:00:00 AM Not Available Not Available Not Available Tirosint 13 mcg capsule take 1 capsule by oral route every day 10/05 completed Prescrib ed Elsewher e: Yes Loca tion: Meghana burks [facility] M odify By: haris ninountaleksey DateTime : [...] Updated DateTime 09/01/2022 132/82 mm[Hg] Vernell Arambula, [facility] [address], [place], [address], [facility] 09/01/2022 13:53:33 Date Recorded Body height Body mass index (BMI) Body weight Provider Name and Address Organization Details Last Updated DateTime 09/01/2022 165.1 cm 22.5 kg/m2 22574.97 g Janell Dahl [facility] 09/01/2022 10:53:46 Date Recorded Systolic And Diastolic Provider Name and Address Organization Details Last Updated DateTime 01/03/2022 122/82 mm[Hg] Vernell Arambula [facility] [address], [place], [address], [facility] 01/04/2022 10:38:39 Date Recorded Body height Body weight Body mass index (BMI) Provider Name and Address Organization Details Last Updated DateTime 01/03/2022 165.1 cm 92213.25 g 22.4 kg/m2 Little Wahl [facility] 01/03/2022 10:44:13 Date Recorded Body height Systolic And Diastolic Provider Name and Address Organization Details Last Updated DateTime 01/19/2022 165.1 cm 120/82 mm[Hg] Little Wahl [facility] 01/19/2022 11:08:54 Date Recorded Body height Body mass index (BMI) Body weight Systolic And Diastolic Provider Name and Address Organization Details Last Updated DateTime 02/23/2023 165.1 cm 22.5 kg/m2 79569.97 g 123/73 mm[Hg] Daniela Jimenez [facility] 02/23/2023 10:38:20 Date Recorded Body height Body weight Body mass index (BMI) Systolic And Diastolic Provider Name and Address Organization Details Last Updated DateTime 03/02/2022 165.1 cm 80186.25 g 22.4 kg/m2 128/70 mm[Hg] Little Wahl [facility] 03/02/2022 10:37:17 Social History Question Answer Notes LastModified by Organizat ion Details LastModified Time Tobacco Smoking Status Never Smoker Little Wahl [facility] 10/05/2021 10:14:11 Are You Blind Or Do You Have Difficulty Seeing? No Information n ot available 10/05/2021 What Is Your Level Of Caffeine Consumption? Occasional Information not available 10/05/2021 In The 14 Days Before Symptom Onset, Have You Had Close Contact With A Laboratory-confirm ed COVID-19 While That Case Was Ill? No [email or web address] Information n ot available 09/01/2022 In The 14 Days Before Symptom Onset, Have You Had Close Contact With A Person Who Is Under Investigation For COVID-19 While That Person Was Ill? No [email or web address] Information not available 09/01/2022 Have You Been To An Area Known To Be High Risk For COVID-19? No [email or web address] Information not available 09/01/2022 Are You Deaf Or Do You Have Serious Difficulty Hearing? No Information not available 10/05/2021 What Type Of Diet Are You Following? REGULAR Information n ot available 10/05/2021 Have You Ever Been Counseled For Unhealthy Alcohol Use? No [email or web address] Information not available 09/01/2022 Do You Use Your Seat Belt Or Car Seat Routinely? Yes Information not available 10/05/2021 Do You Have Smoke And Carbon Monoxide Detectors In Your Home? Yes Information not available 10/05/2021 Do You Use Sunscreen Routinely? Yes Information not available 10/05/2021 Has Tobacco Cessation Counseling Been Provided? No [email or web address] Information not available 09/01/2022 Do You Have Difficulty Walking Or Climbing Stairs? No Information not available 10/05/2021 Sex: Unknown Functional Status Question Answer Note LastModified by Adisn ion Details LastModified Time Do you use any illicit or recreational drugs? No Information not available 10/05/2021 Do you or have you ever used any other forms of tobacco or nicotine? No Information not available 09/01/2022 What is your level of alcohol consumption? Occasional Information not available 10/05/2021 Are you able to walk independently without assistance or assistive devices? YESWOREST Information not available 10/05/2021 Are you able to care for yourself independently? Yes Information not available 10/05/2021 Do you have difficulty dressing, bathing, grooming, or toileting? No Information not available 10/05/2021 What is your exercise level? Occasional Information not available 10/05/2021 Mental Status Question Answer Note LastModified by Organization D etails LastModified Time Do you feel stressed (tense, restless, nervous, or anxious, or unable to sleep at night)? [id number] Information not available 10/05/2021 Family History Relationship Description Onset Age of this Age Resolved Age Notes LastModified by Organization Details LastModified Time Brother Isabela yeung Not available 2021 10:12:03 Brother Hypertensive disorder [...] aneurysm Not available 2021 10:13:30 Mother Malignant neoplasm of breast Not available 2021 10:13:39 Sister [...] Diagnosis SNOMED-CT Code Diagnosis ICD10 Code Diagnosis IMO Codes Diagnosis Note [id number] JUAN [facility] [address] [address] 10/05/2021 09:31:14 10/05/2021 10:37:03 Gynecologic examination 85950816 Z01.419 Take Calcium with Vitamin D 12-1500mg daily. Do monthly self breast exams. It is advised to get annual flu shot in the fall and she could obtain at [facility] or [facility] clinic. If you haven't received the Tdap [...] Labs UTD PCPMammo completed 2021-WN Vaginal dryness 29870829 N89.8 R23.8 Today we agreed to trial of topical imvexxy 4mcg on inner labia minora as there is a lot of irritation in this area from thinning skin due to postmenopa usal changes hypoestrog enic effects. Samples imvexxy 4mcg given to use topically at night with f/u in 2wks for vulva check [id number] Vernell Arambula [facility] [address] [address] 10/19/2021 13:32:57 10/19/2021 14:31:42 Vaginal irritation 626437720 N89.8 Improvemen t of inner left labia was achieved but not completely resolved up to now.We agreed to continue use x 8 wks but instead insertion vaginall twice a week low dose imvexxy 4mcg with daily moisturizi ng then return for vulvar check.Had a bx in 2016 which was neg. Time spent in visit is a total of 15 mins with at least 50% of visit consisting of counseling and review of plan of care. [id number] Vernell Arambula [facility] [address] [address] 12/21/2021 10:30:12 12/21/2021 11:54:07 Lesion of vulva 240841819 N90.89 Today we discussed another vulvar biopsy [...] counseling and review of plan of care. [id number] Vernell Arambula [facility] [address] [address] 01/03/2022 10:20:47 01/04/2022 17:03:12 Lesion of vulva 226757540 N90.89 See procedure notes from today's Vulvar bx procedure. Will continue current regimen & await results to determine further steps in plan of care. Pre/post procedure instructio ns given with understand ing verbalized . [id number] Vernell Arambula [facility] [address],[place] [address] 01/19/2022 11:01:39 01/19/2022 12:23:13 Genital lichen planus 553380085 L43.9 Here today to review bx resultsSus [...] counseling and review of plan of care. [id number] JUAN [facility] [address] [address] 03/02/2022 10:13:15 03/02/2022 11:16:32 Genital lichen planus 474076004 L43.9 Vulvar med checkDoing extremely well on [...] plan of care. Tenderness of breast 552 44263 N64.4 Having some breast tenderness on left sideExam wnl except voiced tenderness upper outer quadrant of left breast sensitivit y/tenderne ss.Updated mammo 08/2021 wnlWill complete breast US & if needed may order diag mammo if required [id number] Vernell Arambula , [facility] [address],[facility] [place] [address] 09/01/2022 10:13:09 09/01/2022 14:23:35 Genital lichen planus [id number] L43.9 Vulvar med check x 6mos Doing [...] counseling and review of plan of care. [id number] Vernell Arambula , [facility] [address],[facility] [place] [address] 02/23/2023 10:29:20 02/23/2023 11:04:48 Gynecologic examination 58406703 Z01.419 Take Calcium with Vitamin D 12-1500mg daily. Do monthly self breast exams. It is advised to get annual flu shot in the fall and she could obtain at [facility] or [facility] take care clinic. If you haven't received [...] completed 2022 PCP Genital lichen planus 23 4521871 L43.9 Vulva lichen planus doing well.Not having [...] Venegas Member ID Guarantor Name 02/23/2023 2 [facility] (MEDICARE REPLACEMENT/ ADVANTAGE - PPO) [id number] Michaela Lomax [place] [id number] Michaela M [place] 02/23/2023 1 [facility] (MEDICARE REPLACEMENT/ ADVANTAGE - PPO) [id number] Michaela Lomax [place] [id number] Michaela Lomax [place] 01/03/2025 1 [employer] (MEDICARE REPLACEMENT/ ADVANTAGE - PPO) [id number] Michaela Lomax [place] [id number] Michaela M [place] Notes Date Note Type Note Provider Name and Address Organization Details Recorded Time 2 text/html ROS as noted in the HPI Here today for updated Vulvar bx for vulvar lesion. Vernell Arambula [facility] [address], [place], [address], [facility] 01/04/2022 14:23:56 2 text/html ROS as noted in the HPI Here today to review vulvar bx results. JUAN [facility] [address], [place], [address], [facility] 01/19/2022 11:51:46 2 text/html ROS as noted in the HPI Here today for vulvar/med check for lichen planus. Vernell Arambula [facility] [address], [place], [address], [facility] 03/02/2022 11:02:28 3 text/html ROS as noted in the HPI Here today for 6mos med check for lichen's planus. [facility] [address], [place], [address], [facility] 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 For vaginal bleeding, patient reportshistory of menopause having occurredandno history of post menopausal bleeding. For urinary symptoms, patient reportsno hematuria,no incontinence,no nocturia, andno urinary frequency. For vulva, patient reportsno genital lesionandno vulvar atrophy. For vagina, patient reportsnormal vaginal dischargeandno vaginal atrophy.Breast symptomsFor breast, patient reportsno breast lump,no nipple discharge, andno breast pain.Psychological symptomsFor sexual complaints, patient reportsno sexual complaints. For psychological symptoms, patient reportsno depressionandno anxiety.Preventative measuresFor preventive measures, patient reportsencourage regular mammograms starting age 40,encourage self breast examination,encourage regular exercise,encourage no tobacco use,mammogram performed within the past year, andhistory of recent colonoscopy. Vernell Arambula [facility] [address], [place], [address], [facility] 02/23/2023 11:01:33 OBGyn Episode Ob Episode Information Episode Created Date Number of Fetuses Patient Bloodtype Patient rh Status Prepregnancy Weight lbs Domestic Partner Domestic Partner Phone Father Name Net Developer Consultant Status 10/06/19 22 1 CLOSED Fetus Data First Name Last Name Admitted to NICU Weight (g) Sex Living Outcome Pediatric Complications Fetus ID Race Codes Race Delivery Type F Full Term [id number] Vaginal Delivery Barak Calculation Initial Barak Date [...] Domestic Partner Domestic Partner Phone Father Name Net Developer Consultant Status 09/02/19 23 1 CLOSED Fetus Data First Name Last Name Admitted to NICU Weight (g) Sex Living Outcome Pediatric Complications Fetus ID Race Codes Race Delivery Type , Spontane ous [id number] Barak Calculation Initial Barak Date Initial Exam [...] Domestic Partner Domestic Partner Phone Father Name Net Developer Consultant Status 10/06/19 22 1 CLOSED Fetus Data First Name Last Name Admitted to NICU Weight (g) Sex Living Outcome Pediatric Complications Fetus ID Race Codes Race Delivery Type F Full Term [id number] Vaginal Delivery Barak Calculation Initial Barak Date [...]
[2025-03-24 11:36] LABS: Alanine Aminotransferase 28 U/L (6-35); Aspartate Amino Transferase 52 U/L (14-36)
== END 2025-03-24 10:18 | disposition home or self-care (01) ==
LOC: ANHLAB 10:21
PROVIDERS: PCP Internal Medicine; Visit Provider Podiatrist Foot & Ankle Surgery
DX: B35.1 Tinea unguium (principal)
CPT/HCPCS: 36415; 84450; 84460